=== PATIENT | female | born 2000 | race Caucasian/White ===

== ENCOUNTER 2018-12-27 22:47 | Emergency (ER) | payer SELFPAY ==
--- OUTSIDE RECORDS SUMMARY | 2018-12-27 22:51 | XMS REPORT | Continuity of Care Document ---
:2000 Author Organization Interface Problems Problem Status Onset Classification Date Comments Source Date Reported Active Problem 10/23/2018 [place] [address] [facility] INDUCTION Active [address] PYELONEPHRITIS, 12 Active [facility] WKS GESTATION [address] [place] [address] PYELONEPHRITIS Active [address] LABOR Active [address] Center Left 11/20/2017 [facility] nephrolithiasis [address] [place] [address] ABDOMINAL PAIN Active [address] Chlamydia Resolved Problem 10/23/2018 [facility] infection [facility] UTI in Resolved Problem 10/23/2018 [facility] in first 018 Medical trimester(<[facility] ID="[id number]"> Confirmed</span>) Refractory Active Problem 11/20/2017 Data migrated [facility] migraine without 016 from eClinical Medical aura<sup>1</sup> Works on Center 08/13/15. 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 Due to the frequency of her migraines, the patient would benefit from a prophylactic medication. Treatment with nortriptyline was recommended. The possible side effects of this medication were discussed with the patient and her mother. The patinet will also be prescribed a short course of oral steroids in an effort to break the current headache cycle. Originally documented as Common migraine with intractable migraine. Refractory Active Problem 10/23/2018 Data migrated [facility] migraine without 016 from eClinical Medical aura<sup>2</sup> Works on Center 08/13/15. 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 Due to the frequency of her migraines, the patient would benefit from a prophylactic medication. Treatment with nortriptyline was recommended. The possible side effects of this medication were discussed with the patient and her mother. The patinet will also be prescribed a short course of oral steroids in an effort to break the current headache cycle. Originally documented as Common migraine with intractable migraine. Blood transfusion Resolved Problem 10/23/2018 [facility] without reported 998 Medical diagnosis<sup>1</s Center up> Asthma Resolved Problem 11/20/2017 [facility] Headache Resolved Problem 11/20/2017 [facility] ACUTE Active [facility] PYELONEPHRITIS [facility] Medications Medication Details Route Status Patient Ordering Order Source Instructions Provider Date Docusate Sodium 100 mg=1 cap, Active [place] 100 MG Oral PO, BID, PRN 2019 Medical Capsule Constipation, # Center 60 cap, 0 Refill(s), Pharm[facility]: [email or web address] [id number] ibuprofen 600 mg 600 mg=1 tab, Active [facility] oral tablet PO, Q6H, PRN 2018 Medical Other -See Center Comment, # 60 tab, 0 Refill(s), [facility]: [email or web address] [id number] 1 tab, Route: Inactive [facility] Multivitamins oral PO, Drug Form: 2019 Medical tablet TAB, Dosing Center Weight 100.455, kg, Daily, Start date: 10/21/18 9:00:00 CDT, Duration: 30 day, Stop date: 11/19/18 9:00:00 CDT M-M-R II 0.5 mL, Route: No Longer [facility] SUB-Q, Drug Active 2018 Medical Form: PDR/INJ, Center Dosing Weight 100.455, kg, ONCALL, Give only if patient rubella non-immune, Start date: 10/20/18 16:00:00 CDT, Duration: 1 doses or timesNotes: (Same as: M-M-R II) (nhktlic-mzwim-k ubella virus vaccine 0.5 ml INJ VL) WASTE: F/P - Red; E -Red GIVE PRIOR TO DISCHARGE Ibuprofen 600 mg, 1 tab, No Longer 10/20[facility] Route: PO, Drug Active 2018 Medical form: TAB, Center Q6Hnow, Dosing Weight 100.455, kg, Start date: 10/20/18 16:00:00 CDT, Duration: 30 day, Stop date: 11/19/18 10:00:00 CDTNotes: (Same as: Motrin) "Do Not Crush" Take with food. Bisacodyl 15 mg, 3 tab, No Longer [place] Route: PO, Drug Active 2018 Medical form: ECTAB, Center Daily, Dosing Weight 100.455, kg, PRN Other -See Comment, Start date: 10/20/18 15:35:00 CDT, Duration: 30 day, Stop date: 11/19/18 15:34:00 CDTNotes: (Same As: Dulcolax, Correctol) (Do Not Crush) "Do Not Crush" Docusate 100 mg, 1 cap, No Longer [place] Route: PO, Drug Active 2018 Medical form: CAP, BID, Center Dosing Weight 100.455, kg, PRN Constipation, Start date: 10/20/18 15:35:00 CDT, Duration: 30 day, Stop date: 11/19/18 15:34:00 CDTNotes: (Same as: Colace) (Do Not Crush) zolpidem 5 mg, 1 tab, No Longer [place] Route: PO, Drug Active 2018 Medical form: TAB, Center Bedtime, Dosing Weight 100.455, kg, PRN Sleep, Start date: 10/20/18 15:35:00 CDT, Duration: 30 day, Stop date: 11/19/18 15:34:00 CDTNotes: (Same As: Ambien) Methylergonovine 0.2 mg, 1 mL, No Longer [place] Route: IM, Drug Active 2018 Medical form: INJ, PRN, Center Dosing Weight 100.455, kg, PRN Other -See Comment, Start date: 10/20/18 15:35:00 CDT, Duration: 30 day, Stop date: 11/19/18 15:34:00 CDTNotes: (Same as:Methergine) lanolin topical 1 appl, Route: No Longer [place] TOP, PRN, Drug Active 2018 Medical form: OINT, PRN Center Other -See Comment, Start date: 10/20/18 15:35:00 CDT, Duration: 30 day, Stop date: 11/19/18 15:34:00 CDT Benzocaine 200 1 spray, Route: No Longer [place] MG/ML Topical TOP, PRN, Drug Active 2019 Medical [place] [Dermoplast] form: SPRY, PRN Center Irritation, Start date: 10/20/18 15:35:00 CDT, Duration: 30 day, Stop date: 11/19/18 15:34:00 CDTNotes: (Same As: Dermoplast) WASTE: Aerosol - Return to Pharmacy FOR EXTERNAL USE ONLY Oxytocin 30 unit, 500 mL, No Longer [facility] Rate: 42 ml/hr, Active 2019 Medical Infuse over: Center 11.9 hr, Dosing Weight 100.455, kg, Route: IV, Total Volume: 500 mL, Start date: 10/20/18 15:35:00 CDT, Duration: 2 day, Stop date: 10/22/18 15:34:00 CDT, Replace Every: 11.9 hr Lactated Ringers 1,000 mL, Rate: No Longer [facility] IV 1,000 mL 100 ml/hr, Active 2019 Medical Infuse over: 10 Center hr, Route: IV, Dosing Weight 100.455 kg, Total Volume: 1,000, Start date: 10/20/18 15:35:00 CDT, Duration: 30 day, Stop date: 11/19/18 15:34:00 CDT, 2.21, m2 Ondansetron 4 mg, 2 mL, No Longer [facility] Route: IVP, Drug Active 2019 Medical form: INJ, Q8H, Center Dosing Weight 100.455, kg, PRN Nausea & Vomiting, Start date: 10/20/18 15:35:00 CDT, Duration: 30 day, Stop date: 11/19/18 15:34:00 CDTNotes: (Same as: Guillermina) MEDICATION WASTE Product Size: 4 mg Product Wasted: ___ mg Pitocin 10 unit, Route: Inactive [facility] IM, ONCE, Dosing 2019 Medical Weight 100.455, Center kg, Priority: STAT, Start date: 10/20/18 15:17:00 CDT, Stop date: 10/20/18 15:17:00 CDT Atropine Sulfate 2 tab, Route: No Longer [facility] 0.025 MG / PO, Drug Form: Active 2019 Medical Diphenoxylate TAB, Dosing Center Hydrochloride 2.5 Weight 100.455, MG Oral Tablet kg, QID, PRN [Lomotil] Loose Stools, STAT, Start date: 10/20/18 15:16:00 CDT, Duration: 30 day, Stop date: 11/19/18 15:15:00 CDTNotes: (Same As: Lomotil) MAX Adult dose=8 tabs/day Oxytocin 30 unit, 500 mL, No Longer [facility] Rate: Titrate, Active 2018 Medical Dosing Weight Center 100.455, kg, Route: IV, Total Volume: 500 mL, Start date: 10/20/18 6:30:00 CDT, Duration: 2 day, Stop date: 10/22/18 6:29:00 CDT, Replace Every: 24 hr Remove - 1 supp, Route: Inactive [facility] dinoprostone VAG, Drug Form: 2019 Medical (Cervidil) insert INS, Dosing Center Weight 100.455, kg, ONCALL, Start date: 10/20/18 6:00:00 CDT, Duration: 30 day, Stop date: 11/19/18 5:59:00 CDTNotes: Vaginal insert: to be removed 1 hour prior to oxytocin administration or 12 hours after insertion. Cervidil 10 mg, 1 supp, Inactive [facility] Route: VAG, Drug 2018 Medical form: SUPP, Center ONCE, Dosing Weight 100.455, kg, Start date: 10/19/18 21:00:00 CDT, Stop date: 10/19/18 21:00:00 CDTNotes: (Same as: Cervidil) Misoprostol 1,000 microgram, No Longer [facility] 5 tab, Route: Active 2019 Medical DC, Drug form: Center TAB, ONCALL, Dosing Weight 100.455, kg, Start date: 10/19/18 19:00:00 CDT, Duration: 1 doses or timesNotes: (Same as:Cytotec) Take with food Famotidine 20 mg, 2 mL, No Longer [facility] Route: IVP, Drug Active 2019 Medical form: INJ, Center ONCALL, Dosing Weight 100.455, kg, Start date: 10/19/18 19:00:00 CDT, Duration: 30 day, Stop date: 11/18/18 18:59:00 CDTNotes: (Same as: Pepcid) Can be dilute in 5-10cc NS IVP: Slow IV push over at least 2 minutes. Carboprost 250 microgram, 1 No Longer [place] mL, Route: IM, Active 2019 Medical Drug form: INJ, Center ONCALL, Dosing Weight 100.455, kg, Start date: 10/19/18 19:00:00 CDT, Duration: 30 day, Stop date: 11/18/18 18:59:00 CDTNotes: (Same As: Hemabate) Citric Acid / 30 mL, Route: No Longer [place] sodium citrate PO, Drug Form: Active 2019 Medical SOLN, Dosing Center Weight 100.455, kg, ONCALL, Start date: 10/19/18 19:00:00 CDT, Duration: 30 day, Stop date: 11/18/18 18:59:00 CDTNotes: (Same As: Bicitra, Cytra-2) Sodium citrate-citric acid (500-334 mg/5 mL): 1 mL contains sodium 1 mEq/mL and bicarbonate 1 mEq/mL Methylergonovine 0.2 mg, 1 mL, No Longer [place] Route: IM, Drug Active 2019 Medical form: INJ, Center ONCALL, Dosing Weight 100.455, kg, Start date: 10/19/18 19:00:00 CDT, Duration: 30 day, Stop date: 11/18/18 18:59:00 CDTNotes: (Same as:Methergine) Acetaminophen 325 2 tab, Route: No Longer [place] MG / Hydrocodone PO, Drug Form: Active 2019 Medical Bitartrate 5 MG TAB, Dosing Center Oral Tablet Weight 100.455, kg, Q4H, PRN Pain Score 7-10, Start date: 10/19/18 18:50:00 CDT, Duration: 30 day, Stop date: 11/18/18 18:49:00 CDTNotes: (Same as: [place] 325/5) Do not exceed 4gm/day of acetaminophen. Lidocaine 20 mL, Route: No Longer [place] Hydrochloride 10 PERCUT, Drug Active 2019 Medical MG/ML Injectable Form: INJ, Center Solution Dosing Weight 100.455, kg, PRN, PRN Other -See Comment, Start date: 10/19/18 18:50:00 CDT, Duration: 1 doses or times, Stop date: Limited # of timesNotes: Preservative free. (Same as: Xylocaine MPF) Ondansetron 4 mg, 2 mL, No Longer [place] Route: IVP, Drug Active 2018 Medical form: INJ, Q8H, Center Dosing Weight 100.455, kg, PRN Nausea & Vomiting, Start date: 10/19/18 18:50:00 CDT, Duration: 30 day, Stop date: 11/18/18 18:49:00 CDTNotes: (Same as: Guillermina) MEDICATION WASTE Product Size: 4 mg Product Wasted: ___ mg Terbutaline 0.25 mg, 0.25 No Longer [place] mL, Route: Active 2019 Medical SUB-Q, Drug Center form: INJ, PRN, Dosing Weight 100.455, kg, PRN Other -See Comment, Start date: 10/19/18 18:50:00 CDT, Duration: 1 doses or times, Stop date: Limited # of timesNotes: DO NOT USE IN ACID CUTTER AREA (Same As: Brethine) Butorphanol 1 mg, 0.5 mL, No Longer [place] Route: IVP, Drug Active 2018 Medical form: INJ, Q2H, Center Dosing Weight 100.455, kg, PRN Pain Score 4-6, Start date: 10/19/18 18:50:00 CDT, Duration: 30 day, Stop date: 11/18/18 18:49:00 CDTNotes: (Same As: Ashtyn) MEDICATION WASTE Product Size: 2 mg Product Wasted: __1_ mg Oxytocin 30 unit, 500 mL, No Longer [place] Rate: 42 ml/hr, Active 2018 Medical Infuse over: Center 11.9 hr, Dosing Weight 100.455, kg, Route: IV, Total Volume: 500 mL, Start date: 10/19/18 18:50:00 CDT, Duration: 2 day, Stop date: 10/21/18 18:49:00 CDT, Replace Every: 11.9 hr Calcium Chloride 1,000 mL, 1,000 No Longer [place] 0.0014 MEQ/ML / ml/hr, Infuse Active 2019 Medical Potassium Chloride Over: 1 hr, Center 0.004 MEQ/ML / Route: IV, Sodium Chloride 1,000, Drug 0.103 MEQ/ML / form: INJ, ONCE, Sodium Lactate Dosing Weight 0.028 MEQ/ML 100.455 kg, Injectable Start date: Solution 10/19/18 18:50:00 CDT, Stop date: 10/19/18 18:50:00 CDT, Bolus for regional anesthesia per unit routine Lactated Ringers 1,000 mL, Rate: No Longer [place] IV 1,000 mL 125 ml/hr, Active 2019 Medical Infuse over: 8 Center hr, Route: IV, Dosing Weight 100.455 kg, Total Volume: 1,000, Start date: 10/19/18 18:50:00 CDT, Duration: 30 day, Stop date: 11/18/18 18:49:00 CDT, 2.21, m2 Ibuprofen 600 mg, 1 tab, No Longer [place] Route: PO, Drug Active 2018 Medical form: TAB, Q6H, Center Dosing Weight 100.455, kg, PRN Other -See Comment, Start date: 10/19/18 18:50:00 CDT, Duration: 30 day, Stop date: 11/18/18 18:49:00 CDTNotes: (Same as: Motrin) "Do Not Crush" Take with food. Ondansetron 4 MG 4 mg=1 tab, PO, Active [facility] Disintegrating Q8H, PRN Nausea 2018 Medical Tablet [Zofran] and Vomiting, [place] Dissolve tab under tongue, # 9 tab, 0 Refill(s) Tamsulosin 0.4 mg=1 cap, Active [facility] hydrochloride 0.4 PO, Daily, # 5 2018 Medical MG Oral Capsule cap, 0 Refill(s) Center [Flomax] Ketorolac 15 mg, Route: Inactive [facility] IVP, Drug form: 2018 Medical INJ, ONCE, Center Dosing Weight 77.273, kg, Priority: STAT, Start date: 11/17/17 2:05:00 CDT, Stop date: 11/17/17 2:05:00 CDT Sodium Chloride 1,000 mL, 1000 Inactive [facility] 0.9% (Bolus) IV ml/hr, Infuse 2018 Medical Over: 1 hr, Center Route: IV, 1,000, Drug form: INJ, ONCE, Priority: STAT, Dosing Weight 77.273 kg, Start date: 11/17/17 1:25:00 CDT, Stop date: 11/17/17 1:25:00 CDT Phenergan 12.5 mg, 0.5 mL, Inactive [facility] Route: IVPB, 2018 Medical Drug form: INJ, Center ONCE, Dosing Weight 77.273, kg, Priority: STAT, Start date: 11/17/17 0:35:00 CDT, Stop date: 11/17/17 0:35:00 CDTNotes: Do not give IV push. (Same as: Phenergan) 30 ML Morphine 4 mg, 2 mL, No Longer [facility] Sulfate 5 MG/ML Route: IVP, Drug Active 2018 Medical Injection form: INJ, ONCE, Center Dosing Weight 77.273, kg, Start date: 11/16/17 23:36:00 CDT, Stop date: 11/16/17 23:36:00 CDTNotes: (Same as:MORPhine Sulfate) Ondansetron 4 mg, Route: Inactive [facility] IVP, Drug form: 2018 Medical INJ, ONCE, Center Dosing Weight 77.273, kg, Priority: STAT, Start date: 11/16/17 23:16:00 CDT, Stop date: 11/16/17 23:16:00 CDT Morphine 4 mg, Route: Inactive [facility] IVP, ONCE, 2018 Medical Dosing Weight Center 77.273, kg, Priority: STAT, Start date: 11/16/17 23:16:00 CDT, Stop date: 11/16/17 23:16:00 CDT Allergies, Adverse Reactions, Alerts Substance Category Reaction Severity Reaction Status Date Comments Source type Reported acetaminoph Assertion Hallucinat Drug Active Data [facility] en/butalbit ions/Chest allergy 6 migrated Medical al/caffeine Pain, from Center <sup>1</sup Hallucinat eClinical > ions/Chest [facility] 08/11/16. Originally documented as Fioricet. Reaction: Hallucinati ons/Chest Pain Immunizations Immunization Date Given Site Status Last Comments Source Updated diphtheria/pertus 10/21/2018 Left completed [facility] sis, acel/tetanus deltoid [facility] adult Center influenza virus 04/15/2018 Not Given [facility] vaccine, Medical inactivated<sup>1 Center </sup> Results Order Name Results Value Reference Date Interpretation Comments Source Range HEMATOLOGY Hct 28.7 % 36.0 - 10/21 [facility] 48.0 [facility] HEMATOLOGY Hgb 9.7 g/dL 12.0 - 10/21 [facility] 16.0 [facility] BLOOD BANK ABO/Rh O POS 10/20 [facility] BLOOD BANK Antibody Scrn Negative 10/20 [facility] (10/19/18 7:01 PM) [place] CHEM PANEL LDH 183 unit/L 98 - 192 10/20 [facility] CHEM PANEL Uric Acid 4.8 mg/dL 2.5 - 7.0 10/20 [facility] CHEM PANEL eGFR 125 10/20 Result Comment: The eGFR is calculated using the CKD-EPI formula. In most young, healthy individuals the eGFR will be >90 mL/ min/1.73m2. The eGFR declines with age. An eGFR of 60-89 may be normal in [facility] mL/min/1. some populations, particularly the elderly, for whom the CKD-EPI formula has not been extensively validated. Use of the eGFR is not recommended in the following populations: [address] Individuals with unstable creatinine concentrations, including patients and those with serious co-morbid conditions. Patients with extremes in muscle mass or diet. The data above are obtained from the National Kidney Disease Education Program (NKDEP) which additionally recommends that when the eGFR is used in patients with extremes of body mass index for purposes of drug dosing, the eGFR should be multiplied by the estimated BMI. CHEM PANEL Creatinine 0.70 mg/dL 0.50 - 10/20 [facility] Lvl 1.40 [facility] CHEM PANEL ALT 14 unit/L 0 - 65 10/20 [facility] CHEM PANEL AST 14 unit/L 0 - 37 10/20 [facility] HEMATOLOGY WBC 12.2 K/CMM 3.7 - 10.4 10/20 [facility] HEMATOLOGY RBC 3.81 M/CMM 4.20 - 10/20 [facility] 5.40 /2018 [facility] HEMATOLOGY Hgb 11.4 g/dL 12.0 - 10/20 [facility] 16.0 /2018 [facility] HEMATOLOGY Hct 34.2 % 36.0 - 10/20 [facility] 48.0 [facility] HEMATOLOGY MCV 89.9 fL 80.0 - 10/20 [facility] 98.0 /2018 [facility] HEMATOLOGY RDW 13.2 % 11.5 - 10/20 [facility] 14.5 [facility] HEMATOLOGY Platelet 285 K/CMM 133 - 450 10/20 [facility] HEMATOLOGY MPV 8.7 fL 7.4 - 10.4 10/20 [facility] HEMATOLOGY MCH 30.0 pg 27.0 - 10/20 [facility] 31.0 [facility] HEMATOLOGY MCHC 33.4 g/dL 32.0 - 10/20 [facility] 36.0 [facility] HEMATOLOGY Segs 78.7 % 45.0 - 10/20 [facility] 75.0 [facility] HEMATOLOGY Neutrophils # 9.6 K/CMM 1.5 - 8.1 10/20 [facility] HEMATOLOGY Lymphocytes 15.2 % 20.0 - 10/20 [facility] 40.0 [facility] HEMATOLOGY Monocytes 5.3 % 2.0 - 12.0 10/20 2018 [facility] HEMATOLOGY Eosinophils 0.4 % 0.0 - 4.0 10/20 [facility] HEMATOLOGY Basophils 0.4 % 0.0 - 1.0 10/20 [facility]2018 [facility] HEMATOLOGY Monocytes # 0.6 K/CMM 0.0 - 0.8 10/20 [facility] HEMATOLOGY Lymphocytes # 1.9 K/CMM 1.0 - 5.5 10/20 [facility] IMMUNOLOGY Treponemal Ab Non-Reactive Non 10/20 [facility]* [place] (10/19/18 7:01 PM) IMMUNOLOGY HIV. Negative Negative 10/20 [facility] (10/19/18 7:01 PM) IMMUNOLOGY Hep Bs Ag Negative Negative 10/20 [facility] (10/19/18 7:01 PM) Retroperito Retroperitone EXAM: US RENAL 04/20 - [facility] shayla al - Medical Complete US US This report was dictated by a Stage Hand/ Fellow. I have personally reviewed the images as Center well as the Resident's interpretation and agree with the findings. DATE: 04/20/2018 at 1005 hours Read by: Danna Ochoa MD Resident: Danna Ochoa MD Dictated Date/time: 04/20/18 10:41 Electronically Signed by: Jose Raul James MD 04/20/18 14:13 FINAL REPORT INDICATION: iup at 12wks 5days with h/o of kidney stones admitted with severe r flank pain ADDITIONAL INFORMATION: None. COMPARISON: None. TECHNIQUE: Multiplanar grayscale and color Doppler ultrasound of the kidneys and urinary bladder. FINDINGS: Right kidney: Size: 11.5 x 4.8 x 4.4 cm. Cortical thickness: Normal. Hydronephrosis: Mild hydronephrosis noted at the right renal pelvis, improved compared to prior ultrasound. Echogenicity: Normal. Calculi: None. Cysts/Masses: None. Left kidney: Size: 10.1 x 4.6 x 4.2 cm. Cortical thickness: Normal. Hydronephrosis: None. Echogenicity: Normal. Calculi: None. Cysts/Masses: None. Bladder: Right ureteral jet, otherwise normal. Free fluid: None. Other: None. IMPRESSION: 1. Mild and improved right hydronephrosis, likely secondary to gravid uterus. 2. Right ureteral jet. 3. No sonographic evidence of nephrolithiasis. Abdomen/Pel Abdomen/Pelvi EXAM: Abdomen/Pelvis wo contrast MRI 04/15 - [place] vis wo s wo contrast /2017 - [facility] contrast MRI MRI DATE: 04/15/2018 at 1247 hours. Read by: Eda Mathis MD Dictated Date/time: 04/15/18 14:31 Electronically Signed by: Eda Mathis MD 04/15/18 14:42 FINAL REPORT INDICATION: 18-year-old woman with right flank pain. There is a clinical concern for acute appendicitis. COMPARISON: Renal ultrasound on 04/14/2018. TECHNIQUE: Multiplanar, multisequence MR images of the abdomen and pelvis were obtained without intravenous contrast administration. IV Contrast: None. Protocol: Routine. FINDINGS: Lines and tubes: None. Lower thorax: Unremarkable. Liver and biliary tree: Normal. Gallbladder: Normal. No MR evidence of gallstones. Adrenals: Normal. Spleen: Normal. Pancreas: Normal. Kidneys and proximal ureters: Mild right hydronephrosis and asymmetric perinephric stranding/edema (image 14-15 of series 4). Bladder: No focal lesions. A right ureteral jet is partially imaged (image 8, series 6). Reproductive organs: A single intrauterine is noted. Gastrointestinal tract: Unremarkable with normal caliber. Appendix: Normal (image 22, series 3). Peritoneum and retroperitoneum: No free air or drainable fluid collections. A small amount of pelvic free fluid is nonspecific (image 16, series 6). Lymph nodes: No pathologic adenopathy. Vasculature: Unremarkable. Bones: No acute abnormality. Soft tissues: Unremarkable. IMPRESSION: 1. Mild RIGHT hydronephrosis is likely secondary to mass effect from the enlarged uterus and intrauterine . 2. Normal appendix. 3. Single intrauterine . Recommend continued follow-up with a dedicated pelvic US. 4. Small amount of nonspecific pelvic free fluid. Preg < Preg < 14wks EXAMINATION: FIRST TRIMESTER PELVIC SONOGRAM 04/14 - [place] 14wks sing sing gest w /2017 - [facility] gest w transvag/Dop transvag/Do US p US HISTORY: Pelvic pain in the setting of ; Read by: Gabino Blanton MD Dictated Date/time: 04/14/18 18:32 Electronically Signed by: Gabino Blanton MD 04/14/18 18:36 FINAL REPORT FINDINGS: There is a single viable intra-uterine with heart rate of 136 beats per minute (bpm). The mean sac diameter is 5.22 cm corresponding with 11 weeks 2 days. The crown-rump length is 5.4 cm corresponding with 12 weeks 1 days. There is no subchorionic hemorrhage. Sonographic gestational age is 11 weeks 5 days. The uterus has a length of 11.2 cm, AP dimension of 7.2 cm, and transverse dimension of 9.2 cm. The right ovary measures 2.9 x 1.6 x 3 cm and the left 3.1 x 2.3 x 2 cm. There are scattered small follicl es in each ovary. No abnormal masses or fluid collections are seen on either side. There is no free fluid within the cul-de-sac. IMPRESSION: 1. Single viable intra-uterine with heart rate of 136 bpm. Sonographic gestational age is 11 weeks 5 days. Retroperito Retroperitone CLINICAL HISTORY: - right flank pain 04/14 - [place] shayla al Complete - [facility] Complete US US AGE: 18 years GENDER: Female Read by: Júnior Stiles MD Dictated Date/time: 04/14/18 18:29 Electronically Signed by: Júnior Stiles MD 04/14/18 18:35 FINAL REPORT TECHNIQUE: Grayscale and limited doppler images of the kidneys were performed and account retention representative images were submitted for evaluation. COMPARISON: None available FINDINGS: Right kidney: The echogenicity is normal. The kidney measures 10.7 x 4.4 x 5.1 cm with a cortical thickness of 1.3 cm. Borderline right hydronephrosis. A punctate echogenic focus is noted in the inferio r pole of the right kidney which is favored represent prominent renal sinus fat. No twinkle artifact is seen on color Doppler flow at this site. No posterior acoustic tearing. Left Kidney: The echogenicity is normal. The kidney measures 11.4 x 4.9 x 5.3 cm with a cortical thickness of 1.3 cm. There is no hydronephrosis or large shadowing calculus. Bladder: Collapsed Vascular: Visualized portions of the IVC are patent. There is no obvious aneurysmal dilatation of the aorta. The origins of the common iliac arteries are not seen sonographically. IMPRESSION: Borderline right hydronephrosis. URINE AND UA Sq Epi Few /LPF Few /LPF 11/17 [facility] [address] [place] [address] URINE AND UA Amorph Occasional None Seen 11/17 [facility] Ifrah /HPF /HPF /[address] [place] [address] URINE AND UA Bacteria Few /HPF None Seen 11/17 [facility] /HPF /[address] [place] [address] URINE AND UA RBC 11-20 /HPF 0 - 2 11/[address] URINE AND UA WBC 0-2 /HPF None Seen 11/17 [facility] /HPF /[address] [place] [address] URINE AND UA Blood Moderate Negative 11/17 [facility] [address] [place] [address] *ABN* [place] (11/17/17 3:24 AM) URINE AND UA Nitrite Negative Negative 11/17 [facility] [address] [place] [address] (11/17/17 3:24 AM) [place] URINE AND UA Leuk Est Trace Negative 11/[address] *ABN* [place] (11/17/17 3:24 AM) URINE AND UA 0.2 EU/dL 0.1 - 1.0 11/17 [facility] Urobilinogen /2017 [facility] URINE AND UA Bili Negative Negative 11/17 [facility] *NA* [place] (11/17/17 3:24 AM) URINE AND UA Protein Negative Negative 11/17 [facility] STOOL [facility] (11/17/17 3:24 AM) [place] URINE AND UA Ketones Trace Negative 11/17 [facility] *ABN* [place] (11/17/17 3:24 AM) URINE AND UA Glucose Negative Negative 11/17 [facility] STOOL [facility] (11/17/17 3:24 AM) [place] URINE AND UA pH 8.0 5.0 - 8.0 11/17 [facility] /2017 [facility] URINE AND UA Turbidity Slight Cloudy Clear 11/17 [facility] (11/17/17 3:24 AM) [place] URINE AND UA Color Yellow Yellow 11/17 [facility] *NA* [place] (11/17/17 3:24 AM) URINE AND UA Spec Grav 1.010 <=1.030 11/17 [facility] BLOOD BANK Antibody Scrn Negative 11/17 [facility] RESULTS [facility] (11/16/17 11:59 PM) [place] BLOOD BANK ABO/Rh O POS 11/17 [facility] RESULTS [facility] ELECTROLYTE AGAP 13.7 meq/L 10.0 - 11/17 [facility] S 20.0 [facility] ELECTROLYTE eGFR 77 11/17 Result Comment: The eGFR is calculated using the CKD-EPI formula. In most young, healthy individuals the eGFR will be >90 mL/ min/1.73m2. The eGFR declines with age. An eGFR of 60-89 may be normal in [facility] mL/min/1.7 /2017 some populations, particularly the elderly, for whom the CKD-EPI formula has not been extensively validated. Use of the eGFR is not recommended in the following populations: [place] [address] [facility] Individuals with unstable creatinine concentrations, including patients and those with serious co-morbid conditions. Patients with extremes in muscle mass or diet. The data above are obtained from the National Kidney Disease Education Program (NKDEP) which additionally recommends that when the eGFR is used in patients with extremes of body mass index for purposes of drug dosing, the eGFR should be multiplied by the estimated BMI. ELECTROLYTE CO2 28 meq/L 24 - 32 11/17 [facility] ELECTROLYTE Calcium Lvl 10.3 mg/dL 8.5 - 10.5 11/17 [facility]2017 [facility] ELECTROLYTE Glucose Lvl 101 mg/dL 70 - 99 11/[address] ELECTROLYTE Chloride Lvl 103 meq/L 95 - 109 11/[address] ELECTROLYTE Sodium Lvl 141 meq/L 135 - 145 11/[address] ELECTROLYTE BUN 11 mg/dL 7 - 11/[address] ELECTROLYTE Creatinine 1.05 mg/dL 0.50 - 11/17 [facility] Lvl 1.40 [facility] ELECTROLYTE Potassium Lvl 3.7 meq/L 3.5 - 5.1 11/17 [facility]2017 [facility] ENDOCRINOLO hCG Tot null 11/17 [facility] HEMATOLOGY Platelet 281 K/CMM 133 - 450 11/17 [facility]2017 [facility] HEMATOLOGY MPV 8.7 fL 7.4 - 10.4 11/17 [facility]2017 [facility] HEMATOLOGY WBC 9.7 K/CMM 3.7 - 10.4 11/17 2017 [facility] HEMATOLOGY RBC 4.51 M/CMM 4.20 - 11/17 5.40 [facility] HEMATOLOGY Hgb 14.5 g/dL 12.0 - 11/17 [facility] 16.0 [facility] HEMATOLOGY Hct 42.6 % 36.0 - 11/17 48.0 [facility] HEMATOLOGY MCV 94.4 fL 80.0 - 11/17 98.0 [facility] HEMATOLOGY RDW 12.8 % 11.5 - 11/17 14.5 [facility] HEMATOLOGY MCHC 34.0 g/dL 32.0 - 11/17 [facility] 36.0 [facility] HEMATOLOGY MCH 32.1 pg 27.0 - 11/17 31.0 [facility] HEMATOLOGY Monocytes # 0.6 K/CMM 0.0 - 0.8 11/[address] HEMATOLOGY Basophils # 0.1 K/CMM 0.0 - 0.2 11/[address] HEMATOLOGY Eosinophils 0.4 % 0.0 - 4.0 11/[address] HEMATOLOGY Basophils 0.6 % 0.0 - 1.0 11/17 [facility] HEMATOLOGY Segs-Bands # 6.8 K/CMM 1.5 - 8.1 11/17 [facility] HEMATOLOGY Lymphocytes 23.3 % 20.0 - 11/17 [facility] 40.0 [facility] HEMATOLOGY Monocytes 6.3 % 2.0 - 12.0 11/17 [facility]2017 [facility] HEMATOLOGY Lymphocytes # 2.3 K/CMM 1.0 - 5.5 11/17 [facility] HEMATOLOGY Segs 69.4 % 45.0 - 11/17 [facility] 75.0 [facility] Pelvis w Pelvis w EXAM: US PELVIS TRANSABDOMINAL 11/17 - [facility] Transvag Transvag - Medical and Pelvis Pelvis EXAM: US PELVIS TRANSVAGINAL WITH DOPPLER This report was dictated by a Stage Hand/Fellow. I have personally reviewed the images as Center Doppler US Doppler US well as the Resident's interpretation and agree with the findings. Read by: Go Roberts MD Resident: Go Roberts MD Dictated Date/time: 11/17/17 01:14 DATE: 11/16/2017 11:23 PM CDT Electronically Signed by: Syd Pineda MD 11/17/17 07:16 FINAL REPORT INDICATION: - LLQ abdominal pain, r/o ectopic vs. ovarian torsion ADDITIONAL INFORMATION: Beta hCG is negative COMPARISON: CT abdomen pelvis 12/26/2014 TECHNIQUE: Multiplanar grayscale, color Doppler and spectral Doppler ultrasound of the pelvis were obtained: Transabdominally through a distended urinary bladder. Transvaginally postvoid. FINDINGS: Uterus/Myometrium: Size: 6.3 x 2.8 x 4 cm Echogenicity: Normal. Masses: None. Cervix: Normal. Endometrium: Thickness: 3 mm Cysts/Masses: None. Right ovary: Size: 3.6 x 2.2 x 2.3 cm Cysts/Masses: None. Left ovary: Size: 3.5 x 2.1 x 1.9 cm Cysts/Masses: None. Adnexa: Normal. Pelvic vasculature: Normal. No Doppler abnormalities. Free fluid: None. Other: Dilated left ureter with 4 mm nonobstructive calculus at the left ureterovesical junction. IMPRESSION: 1. Dilated left ureter with 4 mm nonobstructive calculus at the left ureterovesical junction. CT abdomen pelvis noncontrast may be beneficial for complete evaluation. 2. Otherwise normal pelvic ultrasound. 3. No Doppler/flow abnormalities. Findings discussed with Dr. Daniels at 0121 hours on 11/17/2017. [place] SECTION: Body Vital Signs Vital Sign Value Date Comments Source Respitory Rate 18 10/21/2018 [facility] Systolic (mm Hg) 104 10/21/2018 [facility] Diastolic (mm Hg) 71 10/21/2018 [facility] Heart Rate 90 10/21/2018 [facility] Temperature Oral (F) 97.6 F 10/21/2018 [facility] Heart Rate 100 10/21/2018 [facility] Systolic (mm Hg) 123 10/21/2018 [facility] Diastolic (mm Hg) 82 10/21/2018 [facility] Respitory Rate 18 10/21/2018 [facility] Temperature Oral (F) 98.5 F 10/21/2018 [facility] Respitory Rate 18 10/20/2018 [facility] Heart Rate 105 10/20/2018 [facility] Systolic (mm Hg) 125 10/20/2018 [facility] Diastolic (mm Hg) 70 10/20/2018 [facility] Temperature Oral (F) 98.5 F 10/20/2018 [facility] Height 170.18 cm 10/19/2018 [facility] BMI Calculated 34.69 10/19/2018 [facility] Weight 100.455 10/19/2018 [facility] Systolic (mm Hg) 110 11/17/2017 [facility] Diastolic (mm Hg) 81 11/17/2017 [facility] Respitory Rate 18 11/17/2017 [facility] Heart Rate 80 11/17/2017 [facility] Temperature Oral (F) 98.4 F 11/17/2017 [facility] Systolic (mm Hg) 97 11/17/2017 [facility] Diastolic (mm Hg) 66 11/17/2017 [facility] Respitory Rate 18 11/17/2017 [facility] Heart Rate 93 11/17/2017 [facility] Temperature Oral (F) 98.8 F 11/17/2017 [facility] BMI Calculated 26.68 11/17/2017 [facility] Weight 77.273 11/17/2017 [facility] Temperature Oral (F) 98.4 F 11/17/2017 [facility] Height 170.18 cm 11/17/2017 [facility] Respitory Rate 18 11/17/2017 [facility] Heart Rate 92 11/17/2017 [facility] Systolic (mm Hg) 134 11/17/2017 [facility] Diastolic (mm Hg) 89 11/17/2017 [facility] Encounters Location Location Encounter Encounter Reason Attending ADM DC Status Source Details Type Number For Provider Date Date Visit Outpatient [id number] BHARGAV 01/03 Active [facility] Julio Cesar Gallardo Emergency [id number] Kaden 11/17 11/17 [facility] Julio Cesar Daniels /2017 [facility] Inpatient [id number] Nisha Bedoya 10/19 10/22 [facility] /2018 [facility] Procedures Procedure Code Date Perfomer Comments Source
--- OUTSIDE RECORDS SUMMARY | 2018-12-27 22:52 | XMS REPORT | Summary of Care ---
:2000 Author Organization [facility] Address [address], [place] [address]- Encounter HQ Aria_chris(ROBERTO) [id number] Date(s): 10/19/18 - 10/21/[address] Professional Services provided by [facility] [place] [address]- Discharge Disposition: Home or Self Care Attending Physician: Nisha Bedoya MD Admitting Physician: Nisah Bedoya MD Referring Physician: Dedra Little MD Vital Signs Most recent to oldest 1 2 3 [Reference Range]: Height 170.18 cm (10/19/18 6:47 PM) Temperature Oral [96.4-99.1 97.6 DegF 98.5 DegF 98.5 DegF DegF] (10/21/18 8:54 AM) (10/21/18 12:00 AM) (10/20/18 6:03 PM) Blood Pressure [90-140/60-90 104/71 mmHg 123/82 mmHg 125/70 mmHg mmHg] (10/21/18 8:54 AM) (10/21/18 12:00 AM) (10/20/18 6:03 PM) Respiratory Rate [14-20 BRMIN] 18 BRMIN 18 BRMIN 18 BRMIN (10/21/18 8:54 AM) (10/21/18 12:00 AM) (10/20/18 6:03 PM) Peripheral Pulse Rate [60-100 90 bpm 100 bpm 105 bpm bpm] (10/21/18 8:54 AM) (10/21/18 12:00 AM) *HI* (10/20/18 6:03 PM) Weight 100.455 kg (10/19/18 6:47 PM) Body Mass Index 34.69 m2 (10/19/18 6:47 PM) Problem List Condition Effective Dates Status Health Status Informant Chlamydia infection affecting 2018 Resolved (Confirmed) Blood transfusion without reported 1998 Resolved diagnosis(Confirmed)1 (Confirmed) 10/19/18 Active Refractory migraine without 01/04/16 Active aura(Confirmed)2 UTI (urinary tract infection) in 2018 Resolved in first trimester(Confirmed) [id number] migrated from [facility] on 08/13/15. 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 [...] documented as Common migraine with intractable migraine. Allergies, Adverse Reactions, Alerts Substance Reaction Severity Status NKDA Active Medications acetaminophen-hydrocodone 325 mg-5 mg oral tablet 2 tab, Route: PO, Drug Form: TAB, Dosing Weight 100.455, kg, Q4H, PRN Pain Score 7-10, Start date: 10/19/18 18:50:00 CDT, Duration: 30 day, Stop date: 18:49:00 CDT Notes: (Same as: Glorieta 325/5) Do not exceed 4gm/day of acetaminophen. Start Date: 10/19/18 Stop Date: 10/21/18 Status: Discontinuedacetaminophen-hydrocodone 325 mg-5 mg oral tablet 1 tab, Route: PO, Drug Form: TAB, Dosing Weight 100.455, kg, Q4H, PRN Pain Score 4-6, Start date: 10/19/18 18:50:00 CDT, Duration: 30 day, Stop date: 11/18 18:49:00 CDT Notes: (Same as: Glorieta 325/5) Do not exceed 4gm/day of acetaminophen. Start Date: 10/19/18 Stop Date: 10/21/18 Status: Discontinuedbisacodyl 15 mg, 3 tab, Route: PO, Drug form: ECTAB, Daily, Dosing Weight 100.455, kg, PRN Other -See Comment,Start date: 10/20/18 15:35:00 CDT, Duration: 30 day, Stop date: 11/19/18 15:34:00 CDT Notes: (Same As: Dulcolax, Correctol) (Do Not Crush) "Do Not Crush" Start Date: 10/20/18 Stop Date: 10/21/18 Status: Discontinuedbisacodyl 10 mg, 1 supp, Route: NJ, Drug form: SUPP, PRN, Dosing Weight 100.455, kg, PRN Other -See Comment, Start date: 10/20/18 15:35:00 CDT, Duration: 30 day, Stop date: 11/19/18 15:34:00 CDT Notes: (Same As: Dulcolax, Bisco-Lax) Start Date: 10/20/18 Stop Date: 10/21/18 Status: Discontinuedbutorphanol 1 mg, 0.5 mL, Route: IVP, Drug form: INJ, Q2H, Dosing Weight 100.455, kg, PRN Pain Score 4-6, Start date: 10/19/18 18:50:00 CDT, Duration: 30 day, Stop date: 11/18/18 18:49:00 CDT Notes: (Same As: Stadol) MEDICATION WASTE Product Size: 2 mgProduct Wasted: __1_ mg Start Date: 10/19/18 Stop Date: 10/21/18 Status: Discontinuedbutorphanol 2 mg, 1 mL, Route: IVP, Drug form: INJ, Q2H, Dosing Weight 100.455, kg, PRN Pain Score 7-10, Start date: 10/19/18 18:50:00 CDT, Duration: 30 day, Stop date : 11/18/18 18:49:00 CDT Notes: (Same As: Stadol) MEDICATION WASTE Product Size: 2 mgProduct Wasted: ___ mg Start Date: 10/19/18 Stop Date: 10/21/18 Status: Discontinuedcarboprost 250 microgram, 1 mL, Route: IM, Drug form: INJ, ONCALL, Dosing Weight 100.455, kg, Start date: 10/19/18 19:00:00 CDT, Duration: 30 day, Stop date: 11/18/18 18: 59:00 CDT Notes: (Same As: Hemabate) Start Date: 10/19/18 Stop Date: 10/20/18 Status: CompletedCervidil 10 mg, 1 supp, Route: VAG, Drug form: SUPP, ONCE, Dosing Weight 100.455, kg, Start date: 10/19/18 21:00:00 CDT, Stop date: 10/19/18 21:00:00 CDT Notes: (Same as: Cervidil) Start Date: 10/19/18 Stop Date: 10/19/18 Status: Completedcitric acid-sodium citrate 30 mL, Route: PO, Drug Form: SOLN, Dosing Weight 100.455, kg, ONCALL, Start date : 10/19/18 19:00:00 CDT, Duration: 30 day, Stop date: 11/18/18 18:59:00 CDT Notes: (Same As: Bicitra, Cytra-2) Sodium citrate-citric acid (500-334 mg/5 mL) : 1 mL contains sodium 1 mEq/mL and bicarbonate 1 mEq/mL Start Date: 10/19/18 Stop Date: 10/21/18 Status: DiscontinuedDermoplast 20% topical spray 1 spray, Route: TOP, PRN, Drug form: SPRY, PRN Irritation, Start date: 10/20/18 15:35:00 CDT, Duration: 30 day, Stop date: 11/19/18 15:34:00 CDT Notes: (Same As: Dermoplast)WASTE: Aerosol - Return to Pharmacy FOR EXTERNAL USE ONLY Start Date: 10/20/18 Stop Date: 10/21/18 Status: Discontinueddocusate 100 mg, 1 cap, Route: PO, Drug form: CAP, BID, Dosing Weight 100.455, kg, PRN Constipation, Start date: 10/20/18 15:35:00 CDT, Duration: 30 day, Stop date: 15:34:00 CDT Notes: (Same as: Colace) (Do Not Crush) Start Date: 10/20/18 Stop Date: 10/21/18 Status: Discontinueddocusate sodium 100 mg oral capsule 100 mg=1 cap, PO, BID, PRN Constipation, # 60 cap, 0 Refill(s), Pharmacy: [facility] [id number] Start Date: 10/21/18 Status: Orderedfamotidine 20 mg, 2 mL, Route: IVP, Drug form: INJ, ONCALL, Dosing Weight 100.455, kg, Start date: 10/19/18 19:00:00 CDT, Duration: 30 day, Stop date: 11/18/18 18:59: 00 CDT Notes: (Same as: Pepcid)Can be dilute in 5-10cc NS IVP: Slow IV push over at least 2 minutes. Start Date: 10/19/18 Stop Date: 10/21/18 Status: Discontinuedibuprofen 600 mg, 1 tab, Route: PO, Drug form: TAB, Q6Hnow, Dosing Weight 100.455, kg, Start date: 10/20/18 16:00:00 CDT, Duration: 30 day, Stop date: 11/19/18 10:00: 00 CDT Notes: (Same as: Motrin)"Do Not Crush" Take with food. Start Date: 10/20/18 Stop Date: 10/21/18 Status: Discontinuedibuprofen 600 mg, 1 tab, Route: PO, Drug form: TAB, Q6H, Dosing Weight 100.455, kg, PRN Other -See Comment, Start date: 10/19/18 18:50:00 CDT, Duration: 30 day, Stop date: 11/18/18 18:49:00 CDT Notes: (Same as: Motrin)"Do Not Crush" Take with food. Start Date: 10/19/18 Stop Date: 10/21/18 Status: Discontinuedibuprofen 600 mg oral tablet 600 mg=1 tab, PO, Q6H, PRN Other -See Comment, # 60 tab, 0 Refill(s), Pharmacy: [id number] Start Date: 10/21/18 Stop Date: 10/28/18 Status: OrderedLactated Ringers (Bolus) IV 1,000 mL, 1,000 ml/hr, Infuse Over: 1 hr, Route: IV, 1,000, Drug form: INJ, ONCE , Dosing Weight 100.455 kg, Start date: 10/19/18 18:50:00 CDT, Stop date: 18:50:00 CDT, Bolus for regional anesthesia per unit routine Start Date: 10/19/18 Stop Date: 10/20/18 Status: CompletedLactated Ringers IV 1,000 mL 1,000 mL, Rate: 100 ml/hr, Infuse over: 10 hr, Route: IV, Dosing Weight 100.455 kg, Total Volume: 1,000, Start date: 10/20/18 15:35:00 CDT, Duration: 30 day, Stop date: 11/19/18 15:34:00 CDT, 2.21, m2 Start Date: 10/20/18 Stop Date: 10/21/18 Status: DiscontinuedLactated Ringers IV 1,000 mL 1,000 mL, Rate: 125 ml/hr, Infuse over: 8 hr, Route: IV, Dosing Weight 100.455 kg, Total Volume: 1,000, Start date: 10/19/18 18:50:00 CDT, Duration: 30 day, Stop date: 11/18/18 18:49:00 CDT, 2.21, m2 Start Date: 10/19/18 Stop Date: 10/21/18 Status: Discontinuedlanolin topical 1 appl, Route: TOP, PRN, Drug form: OINT, PRN Other -See Comment, Start date: 15:35:00 CDT,Duration: 30 day, Stop date: 11/19/18 15:34:00 CDT Start Date: 10/20/18 Stop Date: 10/21/18 Status: Discontinuedlidocaine 1% 20 mL, Route: PERCUT, Drug Form: INJ, Dosing Weight 100.455, kg, PRN, PRN Other -See Comment, Start date: 10/19/18 18:50:00 CDT, Duration: 1 doses or times, Stop date: Limited # of times Notes: Preservative free. (Same as: Xylocaine MPF) Start Date: 10/19/18 Stop Date: 10/21/18 Status: Discontinuedlidocaine 1% injectable solution 0.25 mL, Route: INTRADERM, Drug Form: INJ, Dosing Weight 100.455, kg, PRN, PRN Other -See Comment, Start date: 10/19/18 18:50:00 CDT, Duration: 30 day, Stop date: 11/18/18 18:49:00 CDT Notes: Preservative free. (Same as: Xylocaine MPF) Start Date: 10/19/18 Stop Date: 10/21/18 Status: DiscontinuedLomotil oral tablet 2 tab, Route: PO, Drug Form: TAB, Dosing Weight 100.455, kg, QID, PRN Loose Stools, STAT, Start date: 10/20/18 15:16:00 CDT, Duration: 30 day, Stop date: 15:15:00 CDT Notes: (Same As: Lomotil) MAX Adult dose=8 tabs/day Start Date: 10/20/18 Stop Date: 10/21/18 Status: YlarljqihqjeL-J-V II 0.5 mL, Route: SUB-Q, Drug Form: PDR/INJ, Dosing Weight 100.455, kg, ONCALL, Give only if patient rubella non-immune, Start date: 10/20/18 16:00:00 CDT, Duration: 1 doses or times Notes: (Same as: M-M-R II) (lbzltun-qbehz-splyabv virus vaccine 0.5 ml INJ VL) WASTE: F/P - Red; E -Red GIVE PRIOR TO DISCHARGE Start Date: 10/20/18 Stop Date: 10/21/18 Status: Discontinuedmethylergonovine 0.2 mg, 1 mL, Route: IM, Drug form: INJ, PRN, Dosing Weight 100.455, kg, PRN Other -See Comment, Start date: 10/20/18 15:35:00 CDT, Duration: 30 day, Stop date: 11/19/18 15:34:00 CDT Notes: (Same as:Methergine) Start Date: 10/20/18 Stop Date: 10/21/18 Status: Discontinuedmethylergonovine 0.2 mg, 1 mL, Route: IM, Drug form: INJ, ONCALL, Dosing Weight 100.455, kg, Start date: 10/19/18 19:00:00 CDT, Duration: 30 day, Stop date: 11/18/18 18:59: 00 CDT Notes: (Same as:Methergine) Start Date: 10/19/18 Stop Date: 10/21/18 Status: Discontinuedmisoprostol 1,000 microgram, 5 tab, Route: NJ, Drug form: TAB, ONCALL, Dosing Weight 100.455 , kg, Start date: 10/19/18 19:00:00 CDT, Duration: 1 doses or times Notes: (Same as:Cytotec) Take with food Start Date: 10/19/18 Stop Date: 10/20/18 Status: Completedondansetron 4 mg, 2 mL, Route: IVP, Drug form: INJ, Q8H, Dosing Weight 100.455, kg, PRN Nausea & Vomiting, Start date: 10/20/18 15:35:00 CDT, Duration: 30 day, Stop date: 11/19/18 15:34:00 CDT Notes: (Same as: Zofran) MEDICATION WASTE Product Size: 4 mgProduct Wasted: ___ mg Start Date: 10/20/18 Stop Date: 10/21/18 Status: Discontinuedondansetron 4 mg, 2 mL, Route: IVP, Drug form: INJ, Q8H, Dosing Weight 100.455, kg, PRN Nausea & Vomiting, Start date: 10/19/18 18:50:00 CDT, Duration: 30 day, Stop date: 11/18/18 18:49:00 CDT Notes: (Same as: Zofran) MEDICATION WASTE Product Size: 4 mgProduct Wasted: ___ mg Start Date: 10/19/18 Stop Date: 10/20/18 Status: Discontinuedoxytocin 30 units in NS 500ml (Titrate) IV 30 unit 30 unit, 500 mL, Rate: 42 ml/hr, Infuse over: 11.9 hr, Dosing Weight 100.455, kg , Route: IV, Total Volume: 500 mL, Start date: 10/20/18 15:35:00 CDT, Duration: 2 day, Stop date: 10/22/18 15:34:00 CDT, Replace Every: 11.9 hr Start Date: 10/20/18 Stop Date: 10/21/18 Status: Discontinuedoxytocin 30 units in NS 500ml (Titrate) IV 30 unit 30 unit, 500 mL, Rate: 42 ml/hr, Infuse over: 11.9 hr, Dosing Weight 100.455, kg , Route: IV, Total Volume: 500 mL, Start date: 10/19/18 18:50:00 CDT, Duration: 2 day, Stop date: 10/21/18 18:49:00 CDT, Replace Every: 11.9 hr Start Date: 10/19/18 Stop Date: 10/21/18 Status: Completedoxytocin 30 units in NS 500ml (Titrate) IV 30 unit 30 unit, 500 mL, Rate: Titrate, Dosing Weight 100.455, kg, Route: IV, Total Volume: 500 mL, Start date: 10/20/18 6:30:00 CDT, Duration: 2 day, Stop date: 6:29:00 CDT, Replace Every: 24 hr Start Date: 10/20/18 Stop Date: 10/21/18 Status: DiscontinuedPitocin 10 unit, Route: IM, ONCE, Dosing Weight 100.455, kg, Priority: STAT, Start date : 10/20/18 15:17:00 CDT, Stop date: 10/20/18 15:17:00 CDT Start Date: 10/20/18 Stop Date: 10/20/18 Status: CompletedPrenatal Multivitamins oral tablet 1 tab, Route: PO, Drug Form: TAB, Dosing Weight 100.455, kg, Daily, Start date: 10/21/18 9:00:00 CDT, Duration: 30 day, Stop date: 11/19/18 9:00:00 CDT Start Date: 10/21/18 Stop Date: 10/21/18 Status: DiscontinuedRemove - dinoprostone (Cervidil) insert 1 supp, Route: VAG, Drug Form: INS, Dosing Weight 100.455, kg, ONCALL, Start date: 10/20/18 6:00:00 CDT, Duration: 30 day, Stop date: 11/19/18 5:59:00 CDT Notes: Vaginal insert: to be removed 1 hour prior to oxytocin administration or 12 hours after insertion. Start Date: 10/20/18 Stop Date: 10/20/18 Status: Completedterbutaline 0.25 mg, 0.25 mL, Route: SUB-Q, Drug form: INJ, PRN, Dosing Weight 100.455, kg, PRN Other -See Comment, Start date: 10/19/18 18:50:00 CDT, Duration: 1 doses or times, Stop date: Limited # of times Notes: DO NOT USE IN LITIGATION ATTORNEY AREA(Same As: Brethine) Start Date: 10/19/18 Stop Date: 10/21/18 Status: Discontinuedzolpidem 5 mg, 1 tab, Route: PO, Drug form: TAB, Bedtime, Dosing Weight 100.455, kg, PRN Sleep, Start date: 10/20/18 15:35:00 CDT, Duration: 30 day, Stop date: 11/19/18 15:34:00 CDT Notes: (Same As: Collinien) Start Date: 10/20/18 Stop Date: 10/21/18 Status: Discontinued Results BLOOD BANK RESULTS Most recent to oldest [Reference Range]: 1 2 ABO/Rh O POS *Unknown* (10/19/18 7:01 PM) Antibody Scrn Negative (10/19/18 7:01 PM) CHEM PANEL Most recent to oldest [Reference Range]: 1 2 Creatinine Lvl [0.50-1.40 mg/dL] 0.70 mg/dL (10/19/18 7:01 PM) eGFR 125 mL/min/1.73m2 1 *NA* (10/19/18 7:01 PM) Uric Acid [2.5-7.0 mg/dL] 4.8 mg/dL (10/19/18 7:01 PM) ALT [0-65 unit/L] 14 unit/L (10/19/18 7:01 PM) AST [0-37 unit/L] 14 unit/L (10/19/18 7:01 PM) LDH [98-192 unit/L] 183 unit/L (10/19/18 7:01 PM) 1Result Comment: The eGFR is calculated using the CKD-EPI formula. In most young , healthy individualsthe eGFR will be >90 mL/min/1.73m2. The eGFR declines with age. An eGFR of 60-89 may be normal insome populations, particularly the elderly, for whom the CKD-EPI formula has not been extensively validated. Use of the eGFR is not recommended in the following populations: Individuals with unstable creatinine concentrations, including patients and those with serious co-morbid conditions. Patients with extremes in muscle mass or diet. The data above are obtained from the National Kidney Disease Education Program ( NKDEP) which additionally recommends that when the eGFR is used in patients with extremes of body mass index for purposesof drug dosing, the eGFR should be multiplied by the estimated BMI.IMMUNOLOGY Most recent to oldest [Reference Range]: 1 2 Treponemal Ab [Non-Reactive] Non-Reactive *NA* (10/19/18 7:01 PM) HIV. [Negative] Negative *NA* (10/19/18 7:01 PM) Hep Bs Ag [Negative] Negative *NA* (10/19/18 7:01 PM) HEMATOLOGY Most recent to oldest [Reference Range]: 1 2 WBC [3.7-10.4 K/CMM] 12.2 K/CMM *HI* (10/19/18 7:01 PM) RBC [4.20-5.40 M/CMM] 3.81 M/CMM *LOW* (10/19/18 7:01 PM) Hgb [12.0-16.0 g/dL] 9.7 g/dL 11.4 g/dL *LOW* *LOW* (10/21/18 6:36 AM) (10/19/18 7:01 PM) Hct [36.0-48.0 %] 28.7 % 34.2 % *LOW* *LOW* (10/21/18 6:36 AM) (10/19/18 7:01 PM) MCV [80.0-98.0 fL] 89.9 fL (10/19/18 7:01 PM) MCH [27.0-31.0 pg] 30.0 pg (10/19/18 7:01 PM) MCHC [32.0-36.0 g/dL] 33.4 g/dL (10/19/18 7:01 PM) RDW [11.5-14.5 %] 13.2 % (10/19/18 7:01 PM) MPV [7.4-10.4 fL] 8.7 fL (10/19/18 7:01 PM) Platelet [133-450 K/CMM] 285 K/CMM (10/19/18 7:01 PM) Segs [45.0-75.0 %] 78.7 % *HI* (10/19/18 7:01 PM) Lymphocytes [20.0-40.0 %] 15.2 % *LOW* (10/19/18 7:01 PM) Monocytes [2.0-12.0 %] 5.3 % (10/19/18 7:01 PM) Eosinophils [0.0-4.0 %] 0.4 % (10/19/18 7:01 PM) Basophils [0.0-1.0 %] 0.4 % (10/19/18 7:01 PM) Neutrophils # [1.5-8.1 K/CMM] 9.6 K/CMM *HI* (10/19/18 7:01 PM) Lymphocytes # [1.0-5.5 K/CMM] 1.9 K/CMM (10/19/18 7:01 PM) Monocytes # [0.0-0.8 K/CMM] 0.6 K/CMM (10/19/18 7:01 PM) Immunizations Given and Recorded Vaccine Date Status Refusal Reason diphtheria/pertussis, acel/tetanus adult 10/21/18 Given Not Given Vaccine Date Status Refusal Reason influenza virus vaccine, inactivated1 04/15/18 Not Given Patient Refuses 1Result Note: came in several times to ask about flu vax, she kept telling me to come in later due topain Procedures No data available for this section Social History Social History Type Response Substance Abuse Use: None.1 Alcohol Never Smoking Status Never smoker; Exposure to Tobacco Smoke None; Cigarette Smoking Last 365 Days No; Reg Smoking Cessation Counseling No entered on: 10/19/18 1Never any use of marijuana. Assessment and Plan No data available for this section
--- OUTSIDE RECORDS SUMMARY | 2018-12-27 22:52 | XMS REPORT | Summary of Care ---
:2000 Author Organization [facility] Address [address], [place] [address]- Encounter HQ Encntr_chris(FIN) [id number] Date(s): 11/16/17 - 11/17/[address] Professional Services provided by [facility] [place] [address]- Encounter Diagnosis Left nephrolithiasis (Discharge Diagnosis) - 11/17/17 Discharge Disposition: Home or Self Care Attending Physician: Kaden Daniels MD Vital Signs Most recent to oldest 1 2 3 [Reference Range]: Height 170.18 cm (11/16/17 11:01 PM) Temperature Oral [96.4-99.1 98.4 DegF 98.8 DegF 98.4 DegF DegF] (11/17/17 4:02 AM) (11/17/17 1:22 AM) (11/16/17 11:01 PM) Blood Pressure [90-140/60-90 110/81 mmHg 97/66 mmHg 134/89 mmHg mmHg] (11/17/17 4:02 AM) (11/17/17 1:22 AM) (11/16/17 11:01 PM) Respiratory Rate [14-20 18 BRMIN 18 BRMIN 18 BRMIN BRMIN] (11/17/17 4:02 AM) (11/17/17 1:22 AM) (11/16/17 11:01 PM) Peripheral Pulse Rate [60-100 80 bpm 93 bpm 92 bpm bpm] (11/17/17 4:02 AM) (11/17/17 1:22 AM) (11/16/17 11:01 PM) Weight 77.273 kg (11/16/17 11:01 PM) Body Mass Index 26.68 m2 (11/16/17 11:01 PM) Problem List Condition Effective Dates Status Health Status Informant Asthma(Confirmed) Resolved Headache(Confirmed) Resolved 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 Rahul has common migraine without [...] Alerts Substance Reaction Severity Status NKDA Active acetaminophen/butalbital/caffeine1 Hallucinations/Chest Pain Active Hallucinations/Chest Pain 1Data migrated from [employer] on 08/11/16. Originally documented as Fioricet. Reaction: Hallucinations/Chest Pain Medications Flomax 0.4 mg oral capsule 0.4 mg=1 cap, PO, Daily, # 5 cap, 0 Refill(s) Start Date: 11/17/17 Stop Date: 11/22/17 Status: OrderedketOROLAC 15 mg, Route: IVP, Drug form: INJ, ONCE, Dosing Weight 77.273, kg, Priority: STAT, Start date: 11/17/17 2:05:00 CDT, Stop date: 11/17/17 2:05:00 CDT Start Date: 11/17/17 Stop Date: 11/17/17 Status: Completedmorphine 5 mg/mL preservative-free injectable solution 4 mg, 2 mL, Route: IVP, Drug form: INJ, ONCE, Dosing Weight 77.273, kg, Start date: 11/16/17 23:36:00 CDT, Stop date: 11/16/17 23:36:00 CDT Notes: (Same as:MORPhine Sulfate) Start Date: 11/16/17 Stop Date: 11/17/17 Status: Completedmorphine Sulfate 4 mg, Route: IVP, ONCE, Dosing Weight 77.273, kg, Priority: STAT, Start date: 23:16:00 CDT,Stop date: 11/16/17 23:16:00 CDT Start Date: 11/16/17 Stop Date: 11/16/17 Status: Completedondansetron 4 mg, Route: IVP, Drug form: INJ, ONCE, Dosing Weight 77.273, kg, Priority: STAT , Start date: 11/16/17 23:16:00 CDT, Stop date: 11/16/17 23:16:00 CDT Start Date: 11/16/17 Stop Date: 11/16/17 Status: CompletedPhenergan 12.5 mg, 0.5 mL, Route: IVPB, Drug form: INJ, ONCE, Dosing Weight 77.273, kg, Priority: STAT, Start date: 11/17/17 0:35:00 CDT, Stop date: 11/17/17 0:35:00 CDT Notes: Do not give IV push. (Same as: Phenergan) Start Date: 11/17/17 Stop Date: 11/17/17 Status: CompletedSodium Chloride 0.9% (Bolus) IV 1,000 mL, 1000 ml/hr, Infuse Over: 1 hr, Route: IV, 1,000, Drug form: INJ, ONCE , Priority: STAT, Dosing Weight 77.273 kg, Start date: 11/17/17 1:25:00 CDT, Stop date: 11/17/17 1:25:00 CDT Start Date: 11/17/17 Stop Date: 11/17/17 Status: CompletedZofran ODT 4 mg oral tablet, disintegrating 4 mg=1 tab, PO, Q8H, PRN Nausea and Vomiting, Dissolve tab under tongue, # 9 tab , 0 Refill(s) Start Date: 11/17/17 Stop Date: 11/20/17 Status: Ordered Results BLOOD BANK RESULTS Most recent to oldest [Reference Range]: 1 ABO/Rh O POS *Unknown* (11/16/17 11:59 PM) Antibody Scrn Negative (11/16/17 11:59 PM) ELECTROLYTES Most recent to oldest [Reference Range]: 1 Sodium Lvl [135-145 mEq/L] 141 mEq/L (11/16/17 11:24 PM) Potassium Lvl [3.5-5.1 mEq/L] 3.7 mEq/L (11/16/17 11:24 PM) Chloride Lvl [95-109 mEq/L] 103 mEq/L (11/16/17 11:24 PM) CO2 [24-32 mEq/L] 28 mEq/L (11/16/17 11:24 PM) AGAP [10.0-20.0 mEq/L] 13.7 mEq/L (11/16/17 11:24 PM) CHEM PANEL Most recent to oldest [Reference Range]: 1 Creatinine Lvl [0.50-1.40 mg/dL] 1.05 mg/dL (11/16/17 11:24 PM) eGFR 77 mL/min/1.73m2 1 *NA* (11/16/17 11:24 PM) BUN [7-22 mg/dL] 11 mg/dL (11/16/17 11:24 PM) Glucose Lvl [70-99 mg/dL] 101 mg/dL *HI* (11/16/17 11:24 PM) Calcium Lvl [8.5-10.5 mg/dL] 10.3 mg/dL (11/16/17 11:24 PM) 1Result Comment: The eGFR is calculated [...] eGFR should be multiplied by the estimated BMI.ENDOCRINOLOGY Most recent to oldest [Reference Range]: 1 hCG Tot <1 mIU/mL *NA* (11/16/17 11:24 PM) URINE AND STOOL Most recent to oldest [Reference Range]: 1 UA Turbidity [Clear] Slight Cloudy (11/17/17 3:24 AM) UA Color [Yellow] Yellow *NA* (11/17/17 3:24 AM) UA pH [5.0-8.0] 8.0 (11/17/17 3:24 AM) UA Spec Grav [<=1.030] 1.010 (11/17/17 3:24 AM) UA Glucose [Negative] Negative (11/17/17 3:24 AM) UA Blood [Negative] Moderate *ABN* (11/17/17 3:24 AM) UA Ketones [Negative] Trace *ABN* (11/17/17 3:24 AM) UA Protein [Negative] Negative (11/17/17 3:24 AM) UA Urobilinogen [0.1-1.0 EU/dL] 0.2 EU/dL (11/17/17 3:24 AM) UA Bili [Negative] Negative *NA* (11/17/17 3:24 AM) UA Leuk Est [Negative] Trace *ABN* (11/17/17 3:24 AM) UA Nitrite [Negative] Negative (11/17/17 3:24 AM) UA WBC [None Seen /HPF] 0-2 /HPF (11/17/17 3:24 AM) UA RBC [0-2 /HPF] 11-20 /HPF *ABN* (11/17/17 3:24 AM) UA Bacteria [None Seen /HPF] Few /HPF (11/17/17 3:24 AM) UA Sq Epi [Few /LPF] Few /LPF (11/17/17 3:24 AM) UA Amorph Ifrah [None Seen /HPF] Occasional /HPF *ABN* (11/17/17 3:24 AM) HEMATOLOGY Most recent to oldest [Reference Range]: 1 WBC [3.7-10.4 K/CMM] 9.7 K/CMM (11/16/17 11:24 PM) RBC [4.20-5.40 M/CMM] 4.51 M/CMM (11/16/17 11:24 PM) Hgb [12.0-16.0 g/dL] 14.5 g/dL (11/16/17 11:24 PM) Hct [36.0-48.0 %] 42.6 % (11/16/17 11:24 PM) MCV [80.0-98.0 fL] 94.4 fL (11/16/17 11:24 PM) MCH [27.0-31.0 pg] 32.1 pg *HI* (11/16/17 11:24 PM) MCHC [32.0-36.0 g/dL] 34.0 g/dL (11/16/17 11:24 PM) RDW [11.5-14.5 %] 12.8 % (11/16/17 11:24 PM) MPV [7.4-10.4 fL] 8.7 fL (11/16/17 11:24 PM) Platelet [133-450 K/CMM] 281 K/CMM (11/16/17 11:24 PM) Segs [45.0-75.0 %] 69.4 % (11/16/17 11:24 PM) Lymphocytes [20.0-40.0 %] 23.3 % (11/16/17 11:24 PM) Monocytes [2.0-12.0 %] 6.3 % (11/16/17 11:24 PM) Eosinophils [0.0-4.0 %] 0.4 % (11/16/17 11:24 PM) Basophils [0.0-1.0 %] 0.6 % (11/16/17 11:24 PM) Segs-Bands # [1.5-8.1 K/CMM] 6.8 K/CMM (11/16/17 11:24 PM) Lymphocytes # [1.0-5.5 K/CMM] 2.3 K/CMM (11/16/17 11:24 PM) Monocytes # [0.0-0.8 K/CMM] 0.6 K/CMM (11/16/17 11:24 PM) Basophils # [0.0-0.2 K/CMM] 0.1 K/CMM (11/16/17 11:24 PM) Immunizations No data available for this section Procedures No data available for this section Social History Social History Type Response Substance Abuse Use: Current. Type: Marijuana. Smoking Status Never smoker; Exposure to Tobacco Smoke None; Cigarette Smoking Last 365 Days No; Reg Smoking Cessation Counseling No entered on: 11/16/17 Assessment and Plan No data available for this section
[2018-12-28 00:24] LABS: Absolute Lymphocytes (CBC) 1.8 K/uL (0.7-4.9); Absolute Monocytes 0.6 K/uL (0.1-1.3); Absolute Neutrophil 3.7 K/uL (1.8-8.0); Basophils % 0.6 % (0-1.3); Eosinophils % 1.1 % (0-4.4); Hematocrit 32.7 % (36.0-45.0); Lymphocytes % 29.9 % (15.3-44.8); MPV 9.2 fL (7.6-11.3); RBC Red Blood Cell Count 3.83 M/uL (3.86-4.86)
[2018-12-28 00:38] LABS: BUN Blood Urea Nitrogen 9 mg/dL (7-18); Bicarbonate 28 mmol/L (21-32); Glucose Level 104 mg/dL (74-106); Sodium Level 141 mmol/L (136-145)
--- NOTE | 2018-12-28 01:47 | ER ---
Nurse's Notes [facility] Name: Graham Aguilar Age: 18 yrs Sex: Female : 2000 Arrival Date: 12/27/2018 Time: 22:50 Bed 15 Private MD: Diagnosis: Generalized abdominal pain Presentation: 12/27 23:04 Presenting complaint: Patient states: Pt reports she started having ABD pain since ea yesterday that got worse throughout the day. pt reports the only symptoms she is having is nausea. Transition of care: patient was not received from another setting of care. Onset of symptoms was December 27, 2018. Risk Assessment: Do you want to hurt yourself or someone else? Patient reports no desire to harm self or others. Initial Sepsis Screen: Does the patient meet any 2 criteria? No. Patient's initial sepsis screen is negative. Does the patient have a suspected source of infection? No. Patient's initial sepsis screen is negative. Care prior to arrival: None. 23:04 Method Of Arrival: Ambulatory ea 23:04 Acuity: MOSHE 3 ea Triage Assessment: 23:07 General: Appears uncomfortable, Behavior is calm, cooperative, appropriate for age. ea Pain: Complains of pain in abdomen. Neuro: Level of Consciousness is awake, alert, obeys commands, Oriented to person, place, time, situation. Respiratory: Airway is patent Respiratory effort is even, unlabored, Respiratory pattern is regular, symmetrical. GI: Reports nausea. RN ORTHO: 23:08 LMP 12/13/2018 ea Historical: - Allergies: 23:07 "prescription headache medication"; ea - Home Meds: 23:07 None [Active]; ea - PMHx: 23:07 None; ea - PSHx: 23:07 None; ea - Immunization history:: Adult Immunizations up to date. - Social history:: Smoking status: Patient/guardian denies using tobacco. - Ebola Screening: : No symptoms or risks identified at this time. Screenin:05 Abuse screen: Denies threats or abuse. Nutritional screening: No deficits noted. ea Tuberculosis screening: No symptoms or risk factors identified. Fall Risk None identified. Assessment: 22:51 General: Appears in no apparent distress. comfortable, Behavior is calm, cooperative, cc3 appropriate for age. Pain: Complains of pain in abdomen. Neuro: Level of Consciousness is awake, alert, obeys commands, Oriented to person, place, time, situation, Appropriate for age. Cardiovascular: Denies chest pain, Patient's skin is warm and dry. Respiratory: Airway is patent Respiratory effort is even, unlabored, Respiratory pattern is regular, symmetrical. GI: Bowel sounds present X 4 quads. Abd is soft and non tender X 4 quads. : No signs and/or symptoms were reported regarding the genitourinary system. EENT: No signs and/or symptoms were reported regarding the EENT system. Derm: No signs and/or symptoms reported regarding the dermatologic system. Musculoskeletal: Circulation, motion, and sensation intact. Range of motion: intact in all extremities. 23:21 Reassessment: Patient appears in no apparent distress at this time. Patient and/or cc3 family updated on plan of care and expected duration. Pain level reassessed. Patient is alert, oriented x 3, equal unlabored respirations, skin warm/dry/pink. 12/28 00:17 Reassessment: Patient appears in no apparent distress at this time. Patient and/or cc3 family updated on plan of care and expected duration. Pain level reassessed. Patient is alert, oriented x 3, equal unlabored respirations, skin warm/dry/pink. 01:25 Reassessment: Patient appears in no apparent distress at this time. Patient and/or cc3 family updated on plan of care and expected duration. Pain level reassessed. Patient is alert, oriented x 3, equal unlabored respirations, skin warm/dry/pink. Patient came back from CT scan department, awaiting result. 02:15 Reassessment: Patient appears in no apparent distress at this time. Patient and/or cc3 family updated on plan of care and expected duration. Pain level reassessed. Patient is alert, oriented x 3, equal unlabored respirations, skin warm/dry/pink. ONEIDA Dunn discharged the patient home with prescription given. IV cannula removed and patient left ER vitally stable and ambulatory with her significant other. Patient denies pain at this time. Patient states feeling better. Patient states symptoms have improved. Vital Signs: 12/27 23:05 BP 125 / 90; Pulse 90; Resp 18; Temp 98.1; Pulse Ox 100% on R/A; Weight 58.97 kg; ea Height 5 ft. 7 in. (170.18 cm); Pain 10/10; 06/04 00:15 BP 121 / 92; Pulse 95; Resp 19 S; Pulse Ox 100% on R/A; cc3 01:27 BP 109 / 70; Pulse 77; Resp 18 S; Pulse Ox 99% on R/A; cc3 02:04 BP 105 / 73; Pulse 71; Resp 17 S; Temp 98.2(O); Pulse Ox 99% on R/A; cc3 12/27 23:05 Body Mass Index 20.36 (58.97 kg, 170.18 cm) ea ED Course: 12/27 22:50 Patient arrived in ED. am2 22:51 Amanda Whalen is Primary Nurse. cc3 22:51 Patient has correct armband on for positive identification. Bed in low position. Call cc3 light in reach. Side rails up X 1. Pulse ox on. NIBP on. 22:55 Kor[facility]C [facility]. kb 22:55 Kaden Torres MD is Attending Physician. kb 23:05 Triage completed. ea 23:06 Arm band placed on right wrist. Patient placed in an exam room, on a stretcher, on ea pulse oximetry. 23:50 Inserted saline lock: 20 gauge in left antecubital area, using aseptic technique. Blood cc3 collected. 12/28 02:15 No provider procedures requiring assistance completed. IV discontinued, intact, cc3 bleeding controlled, No redness/swelling at site. Pressure dressing applied. Administered Medications: No medications were administered Outcome: 01:46 Discharge ordered by . kb 02:15 Discharged to home ambulatory, with family. cc3 02:15 Condition: stable 02:15 Discharge instructions given to patient, family, Instructed on discharge instructions, follow up and referral plans. medication usage, Demonstrated understanding of instructions, follow-up care, medications, Prescriptions given X 2. 02:20 Patient left the ED. cc3 Signatures: Korin Dunn FNP-C FNP-Gianna Romero am2 Carmen Rocha, RN RN Amanda Underwood cc3
--- NOTE | 2018-12-28 01:47 | EDPHYS ---
Physician Documentation [facility] Name: Graham Aguilar Age: 18 yrs Sex: Female : 2000 Arrival Date: 12/27/2018 Time: 22:50 Bed 15 Private MD: ED Physician Kaden Torres HPI: 12/28 01:31 This 18 yrs old Female presents to ER via Ambulatory with complaints of kb Abdominal Pain. 01:31 The patient presents with abdominal pain in the left upper quadrant, in the left lower kb quadrant. Onset: The symptoms/episode began/occurred yesterday. The symptoms do not radiate. Associated signs and symptoms: Pertinent positives: nausea, Pertinent negatives: anorexia, blood in stools, chest pain, constipation, diarrhea, dysuria, fever, headache, hematuria, palpitations, shortness of breath, vaginal discharge, vomiting, vomiting blood. The symptoms are described as constant. Modifying factors: The symptoms are alleviated by nothing, the symptoms are aggravated by nothing. Severity of pain: At its worst the pain was moderate in the emergency department the pain is unchanged. The patient has experienced a previous episode. The patient has not recently seen a physician. Pt states it feels like the same pain she had when she had kidney stones. Also feels similar to when she was so she thinks she could be again. Last LMP was middle of November. 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 - Social history:: Smoking status: Patient/guardian denies using tobacco. - Ebola Screening: : No symptoms or risks identified at this time. ROS: 12/28 01:30 Constitutional: Negative for fever, chills, and weight loss, Cardiovascular: Negative kb for chest pain, palpitations, and edema, Respiratory: Negative for shortness of breath, cough, wheezing, and pleuritic chest pain, Back: Negative for injury and pain, : Negative for injury, bleeding, discharge, and swelling, MS/Extremity: Negative for injury and deformity, Skin: Negative for injury, rash, and discoloration, Neuro: Negative for headache, weakness, numbness, tingling, and seizure. Abdomen/GI: Positive for abdominal pain, nausea, Negative for vomiting, diarrhea, constipation, abdominal cramps, abdominal distension, anorexia. Exam: 01:30 Constitutional: This is a well developed, well nourished patient who is awake, alert, kb and in no acute distress. Head/Face: Normocephalic, atraumatic. Neck: Trachea midline, no thyromegaly or masses palpated, and no cervical lymphadenopathy. Supple, full range of motion without nuchal rigidity, or vertebral point tenderness. No Meningismus. Chest/axilla: Normal chest wall appearance and motion. Nontender with no deformity. No lesions are appreciated. Cardiovascular: Regular rate and rhythm with a normal S1 and S2. No gallops, murmurs, or rubs. Normal PMI, no JVD. No pulse deficits. Respiratory: Lungs have equal breath sounds bilaterally, clear to auscultation and percussion. No rales, rhonchi or wheezes noted. No increased work of breathing, no retractions or nasal flaring. Back: No spinal tenderness. No costovertebral tenderness. Full range of motion. Skin: Warm, dry with normal turgor. Normal color with no rashes, no lesions, and no evidence of cellulitis. MS/ Extremity: Pulses equal, no cyanosis. Neurovascular intact. Full, normal range of motion. Neuro: Awake and alert, GCS 15, oriented to person, place, time, and situation. Cranial nerves II-XII grossly intact. Motor strength 5/5 in all extremities. Sensory grossly intact. Cerebellar exam normal. Normal gait. 01:30 Abdomen/GI: Inspection: abdomen appears normal, Bowel sounds: normal, in all quadrants, Palpation: moderate abdominal tenderness, in the left upper quadrant and left lower quadrant. Vital Signs: 12/27 23:05 BP 125 / 90; Pulse 90; Resp 18; Temp 98.1; Pulse Ox 100% on R/A; Weight 58.97 kg; ea Height 5 ft. 7 in. (170.18 cm); Pain 10/10; 0604 00:15 BP 121 / 92; Pulse 95; Resp 19 S; Pulse Ox 100% on R/A; cc3 01:27 BP 109 / 70; Pulse 77; Resp 18 S; Pulse Ox 99% on R/A; cc3 02:04 BP 105 / 73; Pulse 71; Resp 17 S; Temp 98.2(O); Pulse Ox 99% on R/A; cc3 12/27 23:05 Body Mass Index 20.36 (58.97 kg, 170.18 cm) ea MDM: 12/27 22:55 Patient medically screened. 12/28 01:29 Data reviewed: vital signs, nurses notes. Data interpreted: Pulse oximetry: on room air kb is 99 %. Interpretation: normal. Counseling: I had a detailed discussion with the patient and/or guardian regarding: the historical points, exam findings, and any diagnostic results supporting the discharge/admit diagnosis, lab results, radiology results, the need for outpatient follow up, a family practitioner, to return to the emergency department if symptoms worsen or persist or if there are any questions or concerns that arise at home. 12/27 23:14 Order name: Basic Metabolic Panel 12/27 23:14 Order name: CBC with Diff 12/27 23:32 Order name: Urine Dipstick--Ancillary (enter results) nm 12/27 23:32 Order name: Urine --Ancillary (enter results) nm 12/28 00:26 Order name: CBC with Automated Diff; Complete Time: 00:28 EDAL 12/28 00:38 Order name: Basic Metabolic Panel; Complete Time: 00:45 EDAL 12/27 23:14 Order name: IV Saline Lock; Complete Time: 00:01 kb 12/27 23:14 Order name: Labs collected and sent; Complete Time: 00:01 kb 12/27 23:14 Order name: Urine Test (obtain specimen); Complete Time: 00:00 kb 12/27 23:14 Order name: Urine Dipstick-Ancillary (obtain specimen); Complete Time: 00:00 kb Administered Medications: No medications were administered Disposition: 02:23 Co-signature as Attending Physician, Kaden Torres MD. pkl Disposition: 12/28/18 01:46 Discharged to Home. Impression: Generalized abdominal pain. - Condition is Stable. - Discharge Instructions: Abdominal Pain, Adult, [id number]. - Prescriptions for Bentyl 20 mg Oral Tablet - take 1 tablet by ORAL route every 6 hours As needed; 20 tablet. Zofran 4 mg Oral Tablet - take 1 tablet by ORAL route every 6 hours As needed; 20 tablet. - Medication Reconciliation Form, Thank You Letter, Antibiotic Education, Prescription Opioid Use, Work release form form. - Follow up: Emergency Department; When: As needed; Reason: Worsening of condition. Follow up: Private Physician; When: 2 - 3 days; Reason: Recheck today's complaints, Continuance of care, Re-evaluation by your physician. Signatures: Dispatcher [employer] EDKorin Godoy, ERNA TORRES-Kaden Campos MD MD pkl Antunez, Elena, RN RN Amanda Underwood cc3 Corrections: (The following items were deleted from the chart) 01:30 01:30 Abdomen/GI: Positive for abdominal pain, kb lauro 02:20 01:46 12/28/2018 01:46 Discharged to Home. Impression: Generalized abdominal pain. cc3 Condition is Stable. Forms are Medication Reconciliation Form, Thank You Letter, Antibiotic Education, Prescription Opioid Use. Follow up: Emergency Department; When: As needed; Reason: Worsening of condition. Follow up: Private Physician; When: 2 - 3 days; Reason: Recheck today's complaints, Continuance of care, Re-evaluation by your physician. kb
[2018-12-28 05:35] LABS: Urine Blood NEGATIVE (NEG); Urine Glucose NEGATIVE (NEG); Urine Protein 1+ (NEG)
--- NOTE | 2018-12-29 13:17 | RAD REPORT ---
EXAM DESCRIPTION: CT - Stone Protocol - 12/28/2018 4:10 am CLINICAL HISTORY: The patient is 18 years old and is Female; abdominal pain TECHNIQUE: Axial computed tomography images of the abdomen and pelvis without intravenous contrast. Sagittal and coronal reformatted images were created and reviewed. This CT exam was performed usi ng one or more of the following dose reduction techniques: automated exposure control, adjustment o f the mA and/or kV according to patient size, and/or use of iterative reconstruction technique. COMPARISON: No relevant prior studies available. FINDINGS: LUNG BASES: Unremarkable. No mass. No consolidation. ABDOMEN: LIVER: Homogeneous without focal mass. GALLBLADDER AND BILE DUCTS: The gallbladder is contracted. PANCREAS: Unremarkable. No ductal dilation. SPLEEN: Unremarkable. ADRENALS: Unremarkable. No mass. KIDNEYS AND URETERS: Bilateral punctate intrarenal calcifications are present. There is no hydro nephrosis or hydroureter of either kidney. No obstructing renal or ureteral calculus is seen. STOMACH AND BOWEL: The stomach is distended with food contents. The small bowel is normal in shazia iber. Stool is present throughout the colon. There is no mucosal thickening or evidence of bowel obst ruction. PELVIS: APPENDIX: The appendix is normal in caliber without surrounding inflammation. BLADDER: Unremarkable. No stones. REPRODUCTIVE: Unremarkable as visualized. ABDOMEN and PELVIS: INTRAPERITONEAL SPACE: Trace free fluid is present within the pelvis which is likely physiologic . No free air. BONES/JOINTS: No acute fracture. SOFT TISSUES: The soft tissues are normal. VASCULATURE: Unremarkable. No abdominal aortic aneurysm. LYMPH NODES: Unremarkable. No enlarged lymph nodes. IMPRESSION: Bilateral nephrolithiasis without obstruction. Electronically signed by: Jazmin Valencia MD 12/28/2018 1:31 AM CDT Due to temporary technical issues with the PACS/Fluency reporting system, reports are being signed by the in house radiologist as a courtesy to ensure prompt reporting. The interpreting radiologist is f ully responsible for the content of the report.
== END 2018-12-28 02:20 | disposition home or self-care (01) ==
LOC: ER 22:47
DX: R10.84 Generalized abdominal pain (principal)
CPT/HCPCS: 36415; 74176; 76377; 80048; 81003; 81025; 85025; 99284

== ENCOUNTER 2020-07-01 16:13 | Emergency (ER) | payer OTHER, SELFPAY ==
--- OUTSIDE RECORDS SUMMARY | 2020-07-01 16:16 | XMS REPORT | Clinical Summary ---
:2000 Author Organization [facility] Address [address] [place] [id number] Care Team Providers Name Role Phone Asked, No Pcp Primary Care Provider Unavailable Allergies Active Allergy Reactions Severity Noted Date Comments Ceftriaxone Hives High 04/11/2019 Medications Medication Sig Dispensed Refills Start Date End Date Status Take 1 tablet by 0 Act kyra vit,[id number] mouth daily. 29 mg iron- 1 mg tablet per tablet Active Problems Estimated Date of Delivery Comments Yes 10/16/2019 No additional problems on file Social History Tobacco Use Types Packs/Day Years Used Date Never Smoker Smokeless Tobacco: Never Used Alcohol Use Drinks/Week oz/Week Comments Not Currently Estimated Date of Delivery Comments Yes 10/16/2019 Sex Assigned at Date Recorded Not on file Obstetrics History Grav Para Term Pre Abrt (TAB) (SAB) (Ect) Mult Lvng Comments 1 Date Outcome GA Total Labor/2nd/3rd Weight Sex Delivery Anes PTL Irma A 1 A5 Name Clin Labor Current Last Filed Vital Signs Not on file Plan of Treatment Health Maintenance Due Date Last Done Comments CHLAMYDIA SCREENING 2014 CERVICAL CANCER SCREENING 2019 INFLUENZA VACCINE 02/25/2020 Results Not on fileafter 07/01/2019 Advance Directives For more information, please contact: [phone] Type Date 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
--- OUTSIDE RECORDS SUMMARY | 2020-07-01 16:17 | XMS REPORT | Continuity of Care Document ---
:2000 Author Organization [facility] [place] Information [place] Care Team Providers Name Role Phone [facility] Information Exchange Unavailable Un available Problems Problem Status Onset Classification Date Comments Sourc e Date Reported Patient currently Active Problem 10/23/2018 [facility] Medical (finding) Center INDUCTION Active [address] PYELONEPHRITIS, Active [facility] brad 12 WKS GESTATION 018 [facility] PYELONEPHRITIS Active [address] LABOR Active [address] Calculus of 11/20/2017 Alistair s kidney [address] [place] [address] ABDOMINAL PAIN Active [address] Chlamydia Resolved Problem 10/23/2018 [facility] trachomatis [address] [place] [address] infection in Center (disorder) Urinary tract Resolved Problem 10/23/2018 [facility] infection in [address] [place] [address] Center (disorder) Refractory Active Problem 10/23/2018 Data migrated [place] migraine without 016 from [employer] Medical aura (disorder) Works on mention er 08/13/15. 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 Due to [...] documented as Common migraine with intractable migraine. Patient encounter Resolved Problem 10/23/2018 infant [facility] status (finding) 998 [facility] Asthma (disorder) Resolved Problem 11/20/2017 [facility] Headache Resolved Problem 11/20/2017 [facility] ([facility]) [facility] ACUTE Active [facility] PYELONEPHRITIS Medic al Center Medications Medication Details Route Status Patient Ordering Order Source Instructions Provider Date Docusate Sodium 100 mg = 1 cap, Active [place] 100 MG Oral PO, BID, PRN 2019 Medical Capsule Constipation, # Center 60 cap, 0 Refill(s), Pharmacy: [facility] [id number] ibuprofen 600 mg 600 mg = 1 tab, Active [place] oral tablet PO, Q6H, PRN 2019 Medical Other -See Center Comment, # 60 tab, 0 Refill(s), Pharmacy: [facility] [id number] 1 tab, Route: Inactive [place] Multivitamins oral PO, Drug Form: 2019 Medical tablet TAB, Dosing Center Weight 100.455, kg, Daily, Start date: 10/21/18 9:00:00 CDT, Duration: 30 day, Stop date: 11/19/18 9:00:00 CDT M-M-R II Notes: (Same as: No Longer [facility] brad M-M-R II) Active 2019 Medical (icdftqi-blzhq-k Center ubella virus vaccine 0.5 ml INJ VL) WASTE: F/P - Red; E -Red GIVE PRIOR TO DISCHARGE Ibuprofen Notes: (Same as: No Longer [facility] Motrin) "Do Not Active 2019 Medical Crush" Take Center with food. Bisacodyl Notes: (Same As: No Longer [facility] Dulcolax, Active 2019 Medical Correctol) (Do Center Not Crush) "Do Not Crush" Docusate Notes: (Same as: No Longer [facility] Colace) (Do Not Active 2019 Medical Crush) Center zolpidem Notes: (Same As: No Longer [facility] Ambien) Active 2019 Medical Center Methylergonovine Notes: (Same No Longer [facility] as:Methergine) Active 2019 Medical Center lanolin topical 1 appl, Route: No Longer [facility] TOP, PRN, Drug Active 2019 Medical form: OINT, PRN Center Other -See Comment, Start date: 10/20/18 15:35:00 CDT, Duration: 30 day, Stop date: 11/19/18 15:34:00 CDT Benzocaine 200 Notes: (Same As: No Longer [facility] MG/ML Topical Dermoplast) Active 2019 Medica l [place] [Dermoplast] WASTE: Aerosol - Center Return to Pharmacy FOR EXTERNAL USE ONLY Oxytocin 30 unit, 500 mL, [place] Longer [place] Rate: 42 ml/hr, Active 2019 Medical Infuse over: Center 11.9 hr, Dosing Weight 100.455, kg, Route: IV, Total Volume: 500 mL, Start date: 10/20/18 15:35:00 CDT, Duration: 2 day, Stop date: 10/22/18 15:34:00 CDT, Replace Every: 11.9 hr Lactated Ringers 1,000 mL, Rate: No Longer 10/20 Servando IV 1,000 mL 100 ml/hr, Active 2019 Medical Infuse over: 10 Center hr, Route: IV, Dosing Weight 100.455 kg, Total Volume: 1,000, Start date: 10/20/18 15:35:00 CDT, Duration: 30 day, Stop date: 11/19/18 15:34:00 CDT, 2.21, m2 Ondansetron Notes: (Same as: No Longer Servando Sarmiento) Active 2018 Medical MEDICATION WASTE Center Product Size: 4 mg Product Wasted: ___ mg Pitocin 10 unit, Route: Inactive Alistair mendiola IM, ONCE, Dosing 2019 Medical Weight 100.455, Center kg, Priority: STAT, Start date: 10/20/18 15:17:00 CDT, Stop date: 10/20/18 15:17:00 CDT Atropine Sulfate Notes: (Same As: No Longer 09/25 Servando 0.025 MG / Lomotil) MAX Active 2018 Medical Diphenoxylate Adult dose = [address] Hydrochloride 2.5 tabs/day MG Oral Tablet [Lomotil] Oxytocin 30 unit, 500 mL, [place] Longer [place] Rate: Titrate, Active 2019 Medical Dosing Weight Center 100.455, kg, Route: IV, Total Volume: 500 mL, Start date: 10/20/18 6:30:00 CDT, Duration: 2 day, Stop date: 10/22/18 6:29:00 CDT, Replace Every: 24 hr Remove - Notes: Vaginal Inactive Alistair mendiola dinoprostone insert: to be 2019 Medic al (Cervidil) insert removed 1 hour Center prior to oxytocin administration or 12 hours after insertion. Cervidil Notes: (Same as: Inactive [place] Cervidil) 2019 [facility] Misoprostol Notes: (Same [place] Longer [place] as:Cytotec) Active 2019 Medical Take with food Center Famotidine Notes: (Same as: No Longer [facility] Pepcid) Can be Active 2019 Medical dilute in 5-10cc Center NS IVP: Slow IV push over at least 2 minutes. Carboprost Notes: (Same As: No Longer [facility] Hemabate) Active 2019 [facility] Citric Acid / Notes: (Same As: No Longer [facility] sodium citrate Bicitra, Active 2018 [facility] Cytra-2) [facility] citrate-citric acid (500-334 mg/5 mL): 1 mL contains sodium 1 mEq/mL and bicarbonate 1 mEq/mL Methylergonovine Notes: (Same No Longer [facility] as:Methergine) Active 2019 [facility] Acetaminophen 325 Notes: (Same as: No Longer [facility] MG / Hydrocodone [place] 325/5) Do Active 2019 [facility] Bitartrate 5 MG not exceed Cente r Oral Tablet 4gm/day of acetaminophen. Lidocaine Notes: No Longer [facility] Hydrochloride 10 Preservative Active 2018 V[place] d[place] MG/ML Injectable free. (Same as: [place] Solution Xylocaine MPF) Ondansetron Notes: (Same as: No Longer [facility] Zofran) Active 2019 Medical MEDICATION WASTE Center Product Size: 4 mg Product Wasted: ___ mg Terbutaline Notes: DO NOT No Longer [facility] USE IN BECK OPERATOR Active 2019 Medical AREA (Same Center As: [place]) Butorphanol Notes: (Same As: No Longer [facility] Stadol) Active 2019 Medical MEDICATION WASTE Center Product Size: 2 mg Product Wasted: __1_ mg Oxytocin 30 unit, 500 mL, [place] Longer [place] Rate: 42 ml/hr, Active 2019 Medical Infuse over: Center 11.9 hr, Dosing Weight 100.455, kg, Route: IV, Total Volume: 500 mL, Start date: 10/19/18 18:50:00 CDT, Duration: 2 day, Stop date: 10/21/18 18:49:00 CDT, Replace Every: 11.9 hr Calcium Chloride 1,000 mL, 1,000 No Longer 10/19 [place] 0.0014 MEQ/ML / ml/hr, Infuse Active 2018 Vt dical Potassium Chloride Over: 1 hr, C enter 0.004 MEQ/ML / Route: IV, Sodium Chloride 1,000, Drug 0.103 MEQ/ML / form: INJ, ONCE, Sodium Lactate Dosing Weight 0.028 MEQ/ML 100.455 kg, Injectable Start date: Solution 10/19/18 18:50:00 CDT, Stop date: 10/19/18 18:50:00 CDT, Bolus for regional anesthesia per unit routine Lactated Ringers 1,000 mL, Rate: No Longer 10/19 [place] IV 1,000 mL 125 ml/hr, Active 2018 Medical Infuse over: 8 Center hr, Route: IV, Dosing Weight 100.455 kg, Total Volume: 1,000, Start date: 10/19/18 18:50:00 CDT, Duration: 30 day, Stop date: 11/18/18 18:49:00 CDT, 2.21, m2 Ibuprofen Notes: (Same as: No Longer [place] Motrin) "Do Not Active 2018 Medical Crush" Take Center with food. Ondansetron 4 MG 4 mg = 1 tab, Active [place] Disintegrating PO, Q8H, PRN 2018 Medi shazia Tablet [Zofran] Nausea and Cente r Vomiting, Dissolve tab under tongue, # 9 tab, 0 Refill(s) Tamsulosin 0.4 mg = 1 cap, Active [place] hydrochloride 0.4 PO, Daily, # 5 2018 Medical MG Oral Capsule cap, 0 Refill(s) Center [Flomax] Ketorolac 15 mg, Route: [place]active [place] IVP, Drug form: 2018 Medical INJ, ONCE, Center Dosing Weight 77.273, kg, Priority: STAT, Start date: 11/17/17 2:05:00 CDT, Stop date: 11/17/17 2:05:00 CDT Sodium Chloride 1,000 mL, 1000 Inactive 11/17[facility] Servando 0.9% (Bolus) IV ml/hr, Infuse [address] [place] [address] Over: 1 hr, [place] Route: IV, 1,000, Drug form: INJ, ONCE, Priority: STAT, Dosing Weight 77.273 kg, Start date: 11/17/17 1:25:00 CDT, Stop date: 11/17/17 1:25:00 CDT Phenergan Notes: Do not Inactive 11/17[facility] [place] give IV push. 2018 Medical (Same as: [place] Phenergan) 30 ML Morphine Notes: (Same No Longer [place] Sulfate 5 MG/ML as:MORPhine Active 2018 [facility] Injection Sulfate) [place] Ondansetron 4 mg, Route: Inactive 11/17[facility] Ubaldo as IVP, Drug form: 2018 Medical INJ, ONCE, Center Dosing Weight 77.273, kg, Priority: STAT, Start date: 11/16/17 23:16:00 CDT, Stop date: 11/16/17 23:16:00 CDT Morphine 4 mg, Route: Inactive 11/17[facility] Servando IVP, ONCE, 2018 Medical Dosing Weight Center 77.273, kg, Priority: STAT, Start date: 11/16/17 23:16:00 CDT, Stop date: 11/16/17 23:16:00 CDT Allergies, Adverse Reactions, Alerts Substance Category Reaction Severity Reaction Status Date Comments S ource type Reported acetaminoph Assertion Hallucinat Drug Active Data [facility] en/butalbit ions/Chest allergy 6 migrated Medical al/caffeine Pain, from [facility] er <sup>1</sup Hallucinat eClinical > ions/Chest Works on Pain 08/11/16. Originally documented as Fioricet. Reaction: Hallucinati ons/Chest Pain Immunizations Immunization Date Given Site Status Last Comments Source Updated diphtheria/pertus 10/21/2018 Left completed [place] Al sis, acel/tetanus deltoid Vt dical adult [place] influenza virus 04/15/2018 Not Given [facility] vaccine, Medical inactivated<sup>1 Ce nter </sup> Results Order Name Results Value Reference Date Interpretation Comments Funmi rce Range HEMATOLOGY Hct 28.7 36.0 - 10/21 [facility] 48.0 /2019 [facility] HEMATOLOGY Hgb 9.7 12.0 - 10/21 [place] 16. [facility] BLOOD BANK ABO/Rh O POS 10/20 [facility] RESULTS [facility] BLOOD BANK Antibody Scrn Negative 10/20 [place] as RESULTS (10/19/18 7:01 PM) [facility] CHEM PANEL LDH 183 98 - 192 10/20 [facility] CHEM PANEL Uric Acid 4.8 2.5 - 7.0 10/20 [facility] CHEM PANEL eGFR 125 10/20 Result Comment: The Medical eGFR is Center calculated using the CKD-EPI formula. In most young, healthy individuals the eGFR will be >90 mL/min/1.73m2 . The eGFR declines with age. An eGFR of 60-89 may be normal in some populations, particularly the elderly, for whom the CKD-EPI formula has not been extensively validated. Use of the eGFR is not recommended in the following populations:< br/>
Carey viduals with unstable creatinine concentration s, including patients and those with serious co-morbid conditions.<b r/>
Patie nts with extremes in muscle mass or diet.

The data above are obtained from the National Kidney Disease Education Program (NKDEP) which additionally recommends that when the eGFR is used in patients with extremes of body mass index for purposes of drug dosing, the eGFR should be multiplied by the estimated BMI. CHEM PANEL Creatinine 0.70 0.50 - 10/20 [facility] Lvl 1.40 [facility] CHEM PANEL ALT 14 0 - 65 10/20 [facility] CHEM PANEL AST 14 0 - 37 10/20 [facility] HEMATOLOGY WBC 12.2 3.7 - 10.4 10/20 [facility] HEMATOLOGY RBC 3.81 4.20 - 10/20 [place] 5.40 [facility] HEMATOLOGY Hgb 11.4 12.0 - 10/20 [facility] 16. [facility] HEMATOLOGY Hct 34.2 36.0 - 10/20 [place] 48.0 [facility] HEMATOLOGY MCV 89.9 80.0 - 10/20 [place] 98.0 [facility] HEMATOLOGY RDW 13.2 11.5 - 10/20 [place] 14.5 [facility] HEMATOLOGY Platelet 285 133 - 450 10/20 [facility] HEMATOLOGY MPV 8.7 7.4 - 10.4 10/20 [facility] HEMATOLOGY MCH 30.0 27.0 - 10/20 [facility] 31.0 [facility] HEMATOLOGY MCHC 33.4 32.0 - 10/20 [facility] 36.0 [facility] HEMATOLOGY Segs 78.7 45.0 - 10/20 [facility] 75.0 [facility] HEMATOLOGY Neutrophils # 9.6 1.5 - 8.1 10/20 [facility] HEMATOLOGY Lymphocytes 15.2 20.0 - 10/20 [facility] 40.0 [facility] HEMATOLOGY Monocytes 5.3 2.0 - 12.0 10/20 [facility] HEMATOLOGY Eosinophils 0.4 0.0 - 4.0 10/20 [facility] HEMATOLOGY Basophils 0.4 0.0 - 1.0 10/20 [facility]2018 [facility] HEMATOLOGY Monocytes # 0.6 0.0 - 0.8 10/20 [facility] HEMATOLOGY Lymphocytes # 1.9 1.0 - 5.5 10/20 [facility] IMMUNOLOGY Treponemal Ab Non-Reactive Non 10/20 [facility] (10/19/18 7:01 PM) [place] IMMUNOLOGY HIV. Negative Negative 10/20 [facility] (10/19/18 7:01 PM) [place] IMMUNOLOGY Hep Bs Ag Negative Negative 10/20 [facility] (10/19/18 7:01 PM) [place] URINE AND UA Sq Epi Few /LPF Few /LPF 11/17 [facility] URINE AND UA Amorph Occasional None Seen 11/17 [facility] s STOOL Ifrah /HPF /HPF /2017 [facility] URINE AND UA Bacteria Few /HPF None Seen 11/17 [facility] /HPF /[address] [place] [address] URINE AND UA RBC 11-20 /HPF 0 - 2 11/17 [facility] URINE AND UA WBC 0-2 /HPF None Seen 11/17 [facility] STOOL /HPF /[address] [place] [address] URINE AND UA Blood Moderate Negative 11/17 [facility] STOOL *ABN* [facility] (11/17/17 3:24 AM) [place] URINE AND UA Nitrite Negative Negative 11/17 [facility] (11/17/17 3:24 AM) [facility] URINE AND UA Leuk Est Trace Negative 11/17 [facility] *ABN* /2017 [facility] (11/17/17 3:24 AM) [place] URINE AND UA 0.2 0.1 - 1.0 11/17 [facility] Urobilinogen /2017 [facility] URINE AND UA Bili Negative Negative 11/17 [facility] STOOL *NA* /2017 [facility] (11/17/17 3:24 AM) [place] URINE AND UA Protein Negative Negative 11/17 [facility] STOOL (11/17/17 3:24 AM) [facility] URINE AND UA Ketones Trace Negative 11/17 [facility] *ABN* /2017 [facility] (11/17/17 3:24 AM) [place] URINE AND UA Glucose Negative Negative 11/17 [facility] (11/17/17 3:24 AM) [facility] URINE AND UA pH 8.0 5.0 - 8.0 11/17 [facility] URINE AND UA Turbidity Slight Cloudy Clear 11/17 [facility] (11/17/17 3:24 AM) [facility] URINE AND UA Color Yellow Yellow 11/17 [facility] *NA* /2017 [facility] (11/17/17 3:24 AM) [place] URINE AND UA Spec Grav 1.010 <=1.030 11/17 [facility] BLOOD BANK Antibody Scrn Negative 11/17 [facility] as RESULTS (11/16/17 11:59 PM) [facility] BLOOD BANK ABO/Rh O POS 11/17 [place] RESULTS [facility] ELECTROLYTE AGAP 13.7 10.0 - 11/17 [place] S 20.0 [facility] ELECTROLYTE eGFR 77 11/17 Result [facility] S /2017 Comment: The Medical eGFR is Center calculated using the CKD-EPI formula. In most young, healthy individuals the eGFR will be >90 mL/min/1.73m2 . The eGFR declines with age. An eGFR of 60-89 may be normal in some populations, particularly the elderly, for whom the CKD-EPI formula has not been extensively validated. Use of the eGFR is not recommended in the following populations:< br/>
Carey viduals with unstable creatinine concentration s, including patients and those with serious co-morbid conditions.<b r/>
Patie nts with extremes in muscle mass or diet.

The data above are obtained from the National Kidney Disease Education Program (NKDEP) which additionally recommends that when the eGFR is used in patients with extremes of body mass index for purposes of drug dosing, the eGFR should be multiplied by the estimated BMI. ELECTROLYTE CO2 28 24 - 32 11/17 [facility]2017 [facility] ELECTROLYTE Calcium Lvl 10.3 8.5 - 10.5 11/17 [place] [facility] ELECTROLYTE Glucose Lvl 101 70 - 99 11/17 [facility]2017 [facility] ELECTROLYTE Chloride Lvl 103 95 - 109 11/17 [facility] 2017 [facility] ELECTROLYTE Sodium Lvl 141 135 - 145 11/17 [facility]2017 [facility] ELECTROLYTE BUN 11 7 - 22 11/[address] ELECTROLYTE Creatinine 1.05 0.50 - 11/17 [facility] S Lvl 1.40 [facility] ELECTROLYTE Potassium Lvl 3.7 3.5 - 5.1 11/17 [place] [facility] ENDOCRINOLO hCG Tot <1 11/17 [facility] GY [facility] HEMATOLOGY Platelet 281 133 - 450 11/17 [facility]2017 [facility] HEMATOLOGY MPV 8.7 7.4 - 10.4 11/[address] HEMATOLOGY WBC 9.7 3.7 - 10.4 11/[address] HEMATOLOGY RBC 4.51 4.20 - 11/17 [facility] 5.40 [facility] HEMATOLOGY Hgb 14.5 12.0 - 11/17 [place] 16.0 [facility] HEMATOLOGY Hct 42.6 36.0 - 11/17 [place] 48.0 [facility] HEMATOLOGY MCV 94.4 80.0 - 11/17 [facility] 98.0 [facility] HEMATOLOGY RDW 12.8 11.5 - 11/17 [facility] 14.5 [facility] HEMATOLOGY MCHC 34.0 32.0 - 11/17 [facility] 36.0 [facility] HEMATOLOGY MCH 32.1 27.0 - 11/17 [place] 31.0 [facility] HEMATOLOGY Monocytes # 0.6 0.0 - 0.8 11/17 [facility]2017 [facility] HEMATOLOGY Basophils # 0.1 0.0 - 0.2 11/17 [facility] s [facility] HEMATOLOGY Eosinophils 0.4 0.0 - 4.0 11/17 [facility] s [facility] HEMATOLOGY Basophils 0.6 0.0 - 1.0 11/17 [facility]2017 [facility] HEMATOLOGY Segs-Bands # 6.8 1.5 - 8.1 11/17 [facility] HEMATOLOGY Lymphocytes 23.3 20.0 - 11/17 [facility] 40.0 [facility] HEMATOLOGY Monocytes 6.3 2.0 - 12.0 11/17 [facility]2017 [facility] HEMATOLOGY Lymphocytes # 2.3 1.0 - 5.5 11/17 [place] [facility] HEMATOLOGY Segs 69.4 45.0 - 11/17 [facility] 75.0 [facility] Pathology Reports No Data Provided for This Section Diagnostic Reports Report Value Date Source Retroperitoneal Complete EXAM: US RENAL 04/20/2018 [facility] US DATE: 04/20/2018 at 1005 hours Ce nter INDICATION: iup at 12wks 5da ys with h/o of kidney stones admitted with severe r flank pain ADDITIONAL INFORMATION: None. COMPARISON: None. TECHNIQUE: Multiplanar yuval carol and color Doppler ultrasound of the kidneys and urinary bladder. FINDINGS: Right kidney: Size: 11.5 x 4.8 x 4.4 cm. Cortical thickness: Normal. Hydronephrosis: Mild hydrone phrosis noted at the right renal pelvis, improved compared to prior ultrasound. Echogenicity: Normal. Calculi: None. Cysts/Masses: None. Left kidney: Size: 10.1 x 4.6 x 4.2 cm. Cortical thickness: Normal. Hydronephrosis: None. Echogenicity: Normal. Calculi: None. Cysts/Masses: None. Bladder: Right ureteral jet, otherwise normal. Free fluid: None. Other: None. IMPRESSION: 1. Mild and improved right hydronephros is, likely secondary to gravid uterus. 2. Right ureteral jet. 3. No sonographic evidence of nephrolithiasis. Abdomen/Pelvis wo contrast EXAM: Abdomen/Pelvis wo contrast MRI 04/15/2018 [facility] DATE: 04/15/2018 at 1247 hours. INDICATION: 18-year-old preg nant woman with right flank pain. There is a clinical concern for acute appendicitis. COMPARISON: Renal ultrasound on 04/14/2018. TECHNIQUE: Multiplanar, mult isequence MR images of the abdomen and pelvis were obtained without intravenous contrast administration. IV Contrast: None. Protocol: Routine. FINDINGS: Lines and tubes: None. Lower thorax: Unremarkable. Liver and biliary tree: Normal. Gallbladder: Normal. No MR evidence of gallstone s. Adrenals: Normal. Spleen: Normal. Pancreas: Normal. Kidneys and proximal ureters : Mild right hydronephrosis and asymmetric perinephric stranding/edema (image 14-15 of series 4). Bladder: No focal lesions. A right ureteral jet is partially imaged (image 8, series 6). Reproductive organs: A single intrauterine pregn sheree is noted. Gastrointestinal tract: Unremarkable with normal caliber. Appendix: Normal (image 22, series 3). Peritoneum and retroperitone um: No free air or drainable fluid collections. A small amount of pelvic free fluid is nonspecific (image 16, series 6). Lymph nodes: No pathologic adenopathy. Vasculature: Unremarkable. Bones: No acute abnormality. Soft tissues: Unremarkable. IMPRESSION: 1. Mild RIGHT hydronephrosi s is likely secondary to mass effect from the enlarged uterus and intrauterine . 2. Normal appendix. 3. Single intrauterine preg nasrin. Recommend continued follow-up with a dedicated pelvic US. 4. Small amount of nonspecific pelvic free flui d. Preg < 14wks sing gest w EXAMINATION: FIRST TRIMESTER PELVIC SONOGRAM 04/14/2018 [facility] transvag/Dop US HISTORY: Pelvic pain in the setting of ; FINDINGS: There is a single viable int ra-uterine with heart rate of 136 beats per minute (bpm). The mean sac diameter is 5.22 cm corresponding with 11 weeks 2 days. The crown-rump length is 5.4 cm corresponding with 12 weeks 1 days. There is no subchorionic hemorrhage. Sonographic gestational age is 11 weeks 5 days. The uterus has a length of 1 1.2 cm, AP dimension of 7.2 cm, and transverse dimension of 9.2 cm. The right ovary measures 2.9 x 1.6 x 3 cm and the left 3.1 x 2.3 x 2 cm. There are scattered small follicl es in each ovary. No abnorma l masses or fluid collections are seen on either side. There is no free fluid within the cul-de-sac. IMPRESSION: 1. Single viable intra-uter ine with heart rate of 136 bpm. Sonographic gestational age is 11 weeks 5 days. Retroperitoneal Complete CLINICAL HISTORY: - right flank pain 04/14/2018 [facility] AGE: 18 years GENDER: Female TECHNIQUE: Grayscale and li mited doppler images of the kidneys were performed and inside outside sales representative images were submitted for evaluation. COMPARISON: None available FINDINGS: Right kidney: The echogenici ty is normal. The kidney measures 10.7 x 4.4 x 5.1 cm with a cortical thickness of 1.3 cm. Borderline right hydronephrosis. A punctate echogenic focus is noted in the inferio r pole of the right kidney w hich is favored represent prominent renal sinus fat. No twinkle artifact is seen on color Doppler flow at this site. No posterior acoustic tearing. Left Kidney: The echogenicit y is normal. The kidney measures 11.4 x 4.9 x 5.3 cm with a cortical thickness of 1.3 cm. There is no hydronephrosis or large shadowing calculus. Bladder: Collapsed Vascular: Visualized portion s of the IVC are patent. There is no obvious aneurysmal dilatation of the aorta. The origins of the common iliac arteries are not seen sonographically. IMPRESSION: Borderline right hydronephrosis. Pelvis w Transvag and EXAM: US PELVIS TRANSABDOMINAL 11/17/2017 [facility] Pelvis Doppler US EXAM: US PELVIS TRANSVAGINAL WITH DOPPLER Center DATE: 11/16/2017 11:23 PM CDT INDICATION: - LLQ abdominal pain, r/o ectopic v s. ovarian torsion ADDITIONAL INFORMATION: Beta hCG is negative COMPARISON: CT abdomen pelvis 12/26/2014 TECHNIQUE: Multiplanar yuval carol, color Doppler and spectral Doppler ultrasound of the pelvis were obtained: Transabdominally through a distended urinary irene dder. Transvaginally postvoid. FINDINGS: Uterus/Myometrium: Size: 6.3 x 2.8 x 4 cm Echogenicity: Normal. Masses: None. Cervix: Normal. Endometrium: Thickness: 3 mm Cysts/Masses: None. Right ovary: Size: 3.6 x 2.2 x 2.3 cm Cysts/Masses: None. Left ovary: Size: 3.5 x 2.1 x 1.9 cm Cysts/Masses: None. Adnexa: Normal. Pelvic vasculature: Normal. No Doppler abnormali ties. Free fluid: None. Other: Dilated left ureter w ith 4 mm nonobstructive calculus at the left ureterovesical junction. IMPRESSION: 1. Dilated left ureter with 4 mm nonobstructive calculus at the left ureterovesical junction. CT abdomen pelvis noncontrast may be beneficial for complete evaluation. 2. Otherwise normal pelvic ultrasound. 3. No Doppler/flow abnormalities. Findings discussed with Dr. Daniels at 0121 hours on 11/17/2017. [place] SECTION: Body Consultation Notes No Data Provided for This Section Discharge Summaries No Data Provided for This Section History and Physicals No Data Provided for This Section Vital Signs Vital Sign Value Date Comments Source Respitory Rate 18 10/21/2018 [facility] Systolic (mm Hg) 104 10/21/2018 [facility] Diastolic (mm Hg) 71 10/21/[address] [facility] Heart Rate 90 10/21/2018 [facility] Temperature Oral (F) 97.6 F 10/21/2018 [facility] Heart Rate 100 10/21/2018 [facility] Systolic (mm Hg) 123 10/21/2018 [facility] Diastolic (mm Hg) 82 10/21/[address] [facility] Respitory Rate 18 10/21/2018 [facility] Temperature Oral (F) 98.5 F 10/21/2018 [facility] Respitory Rate 18 10/20/2018 [facility] Heart Rate 105 10/20/2018 [facility] Systolic (mm Hg) 125 10/20/2018 [facility] Diastolic (mm Hg) 70 10/20/[address] [facility] Temperature Oral (F) 98.5 F 10/20/2018 [facility] Height 170.18 cm 10/19/2018 [facility] BMI Calculated 34.69 10/19/2018 [facility] Weight 100.455 10/19/2018 [facility] Systolic (mm Hg) 110 11/17/2017 [facility] Diastolic (mm Hg) 81 11/17/[address] [facility] Respitory Rate 18 11/17/2017 [facility] Heart Rate 80 11/17/2017 [facility] Temperature Oral (F) 98.4 F 11/17/2017 [facility] Systolic (mm Hg) 97 11/17/2017 [facility] (mm Hg) 66 11/17/[address] [facility] Respitory Rate 18 11/17/2017 [facility] Heart Rate 93 11/17/2017 [facility] Temperature Oral (F) 98.8 F 11/17/2017 [facility] BMI Calculated 26.68 11/17/2017 [facility] Weight 77.273 11/17/2017 [facility] Temperature Oral (F) 98.4 F 11/17/2017 [facility] Height 170.18 cm 11/17/2017 [facility] Respitory Rate 18 11/17/2017 [facility] Heart Rate 92 11/17/2017 [facility] Systolic (mm Hg) 134 11/17/2017 [facility] Diastolic (mm Hg) 89 11/17/[address] [facility] Encounters Location Location Encounter Encounter Reason Attending ADM DC Stat us Source Details Type Number For Provider Date Date Visit Outpatient [id number] BHARGAV 01/03 Activ e [facility], Julio Cesar Gauthier [facility] Emergency [id number] Kaden 11/17 11/17 [facility] Inpatient [id number] Nisha Hongda 10/19 10/22 [facility] /2018 [facility] Procedures No Data Provided for This Section Assessment and Plan No Data Provided for This Section Plan of Care No Data Provided for This Section Social History Social History Date Source Social History TypeResponse 04/15/2018 [facility] Substance Abuse Use: None.1 Alcohol Never Smoking Status Never smoker; Exposure to Tobacco Smoke None; Cigarette Smoking Last 365 Days No; Reg Smoking Cessation Counseling No entered on: 10/19/18 1Never any use of marijuana. Family History No Data Provided for This Section Advance Directives No Data Provided for This Section Functional Status No Data Provided for This Section
--- OUTSIDE RECORDS SUMMARY | 2020-07-01 16:18 | XMS REPORT | Continuity of Care Document ---
:2000 Author Organization [facility] t Address [address] [place] [address] Care Team Providers Name Role Phone Asked, Pcp Primary Care Physician Unavailable Pablo Lara Attending Clinician Elke Attending Clinician Jeremiah Attending Clinician Elke Admitting Clinician Problems Condition Condition Condition Status Onset Resolution Last Treating Co mments Source Name Details Category Date Date Treatment Clinician Date Patient Problem Active 2018-10-23 Charles georgina currently 10-19 21:59:57 l Patient 00:00: Catherine nn (finding) currently 00 (finding) Active 10/19/2018 Problem 10/23/2018 [facility] INDUCTION Diagnosis Active 2018-11-01 Memoria 10-19 10:10:00 l 00:00: [place] INDUCTION 00 Active 10/19/2018 [facility] PYELONEPHR Diagnosis Active 2018-04-28 Memoria ITIS, 04-19 13:42:00 l WKS 00:00: Julio Cesar GESTATION PYELONEPHR 00 ITIS, 12 WKS GESTATION Active 04/19/2018 [facility] PYELONEPHR Diagnosis Active 2018-04-19 Memoria ITIS 04-19 14:23:00 l 00:00: [place] PYELONEPHR 00 ITIS Active 04/19/2018 [facility] LABOR Diagnosis Active 2018-10-05 Mem oria 12-25 16:33:00 l LABOR 00:00: Julio Cesar 00 Active 12/25/2017 [facility] ABDOMINAL Diagnosis Active 2017-11-17 Memoria PAIN 11-16 00:34:00 l 00:00: [place] ABDOMINAL 00 PAIN Active 11/16/2017 [facility] Refractory Problem Active 2018-10-23 M emoria migraine 01-03 21:59:57 l without 00:00: [place] aura Refractory 00 (disorder) migraine without aura (disorder) Active 01/04/2016 Problem 10/23/2018 Data migrated from [email or web address] on 08/13/15. 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 Due to the frequency of her migraines, the patient would benefit from a prophylact ic medication . Treatment with nortriptyl ine was recommende d. The possible side effects of this medication were discussed with the patient and her mother. The patinet will also be prescribed a short course of oral steroids in an effort to break the current headache cycle. Originally documented as Common migraine with intractabl e migraine. [facility] Asthma Problem Resolve 2017-11-20 Charles georgina (disorder) d 04:14:53 l Asthma Julio Cesar (disorder) Resolved Problem 11/20/2017 [facility] Headache Problem Resolve 2017-11-20 Me moria (finding) d 04:14:53 l Headache Richard n (finding) Resolved Problem 11/20/2017 [facility] ACUTE Diagnosis Active 2018-04-28 Mem oria PYELONEPHR 13:42:00 l ITIS ACUTE Julio Cesar PYELONEPHR ITIS Active [facility] Calculus Problem 2017-11-20 2017-11-20 Memoria of kidney 11-17 04:14:53 04:14:53 l Calculus 05:00: Richard n of kidney 00 11/17/2017 11/20/2017 [facility] History of Past Illness Condition Condition Condition Status Onset Resolution Last Treating Co mments Source Name Details Category Date Date Treatment Clinician Date Chlamydia Problem Resolve 2018-10-23 2018-10-23 Memoria trachomati d 07-27 21:59:57 21:59:57 l s 00:00: Julio Cesar infection Chlamydia 00 in trachomati s (disorder) infection in (disorder) Resolved 07/27/2017 Problem 10/23/2018 [facility] Urinary Problem Resolve 2018-0 2018-10-23 2018-10-23 Memoria tract d 07-27 21:59:57 21:59:57 l infection Urinary 00:00: Herm alba in tract 00 infection (disorder) in (disorder) Resolved 07/27/2017 Problem 10/23/2018 [facility] Patient Problem Resolve 1997-0 2018-10-23 2018-10-23 Memoria encounter d 07-27 21:59:57 21:59:57 l status Patient 00:00: [place] (finding) encounter 00 status (finding) Resolved 07/27/1997 Problem 10/23/2018 infant [facility] Allergies, Adverse Reactions, Alerts Allergy Allergy Status Severity Reaction(s) Onset Inactive Treating Comm ents Source Name Type Date Date Clinician Padma Waltoni Active Hives [place] one ty to 04-11 Methodi adverse 00:00: st reaction 00 s to drug acetamin acetamin Active Memori a ophen/bu ophen/bu 6-10 l talbital talbital 05:00: Richard n /caffein /caffein 00 e<sup>1< e<sup>1< /sup> /sup> Social History Social Habit Start Date Stop Date Quantity Comments Source ASSERTION 2019-01-23 [facility] ist 00:00:00 Sex Assigned At [facility] ethodist Tobacco use and 2019-04-11 2019-04-11 Never used [facility] ethodist exposure 00:00:00 00:00:00 Alcohol intake 2019-04-11 2019-04-11 Ex-drinker [facility] thodist 00:00:00 00:00:00 (finding) Social History 2018-04-15 2018-04-15 [facility] 03:34:00 03:34:00 Smoking Status Start Date Stop Date Source [facility] Ordered Filled Start Stop Current Ordering Indication Dosage Frequency Signature Comments Components Source Medication Medication Date Date Medication? Clinician (SIG) Name Name Yes 1{tbl} QD Take 1 [place] on vit,calc76- 9-16 tablet by Met johnson iron-folic 17:40: mouth st 29 mg iron- 25 daily. 1 mg tablet per tablet Docusate Yes 100 mg = 1 Mem oria Sodium 100 3-29 cap, PO, l MG Oral 02:39: BID, PRN Richard n Capsule 00 Constipati on, # 60 cap, 0 Refill(s), Pharmacy: [facility] [place] [address] ibuprofen Yes 600 mg = 1 Me moria 600 mg oral 3-29 tab, PO, l tablet 02:39: Q6H, PRN [place] 00 Other -See Comment, # 60 tab, 0 Refill(s), Pharmacy: [facility] [place] [address] Docusate Yes 100 mg = 1 Mem oria Sodium 100 3-29 cap, PO, l MG Oral 02:39: BID, PRN Richard n Capsule 00 Constipati on, # 60 cap, 0 Refill(s), Pharmacy: [facility] [place] [address] ibuprofen Yes 600 mg = 1 Me moria 600 mg oral 3-29 tab, PO, l tablet 02:39: Q6H, PRN [place] 00 Other -See Comment, # 60 tab, 0 Refill(s), Pharmacy: [facility] [place] [address] No 1 tab, Memoria Multivitami 10-21 Route: PO, l ns oral 14:00: Drug Form: Herm alba tablet 00 TAB, Dosing Weight 100.455, kg, Daily, Start date: 10/21/18 9:00:00 CDT, Duration: 30 day, Stop date: 11/19/18 9:00:00 CDT No 1 tab, Memoria Multivitami 10-21 Route: PO, l ns oral 14:00: Drug Form: Herm alba tablet 00 TAB, Dosing Weight 100.455, kg, Daily, Start date: 10/21/18 9:00:00 CDT, Duration: 30 day, Stop date: 11/19/18 9:00:00 CDT M-M-R II No Notes: Memoria 10-20 (Same as: l 21:00: M-M-R II) Julio Cesar (measles-m umps-rubel la virus vaccine 0.5 ml INJ VL) WASTE: F/P - Red; E -Red GIVE PRIOR TO DISCHARGE Ibuprofen No Notes: Memori a - (Same as: l 21:00: Motrin) Julio Cesar "Do Not Crush" Take with food. M-M-R II No Notes: Memoria - (Same as: l 21:00: M-M-R II) [place] 00 (measles-m umps-rubel la virus vaccine 0.5 ml INJ VL) WASTE: F/P - Red; E -Red GIVE PRIOR TO DISCHARGE Ibuprofen No Notes: Memori a - (Same as: l 21:00: Motrin) Julio Cesar 00 "Do Not Crush" Take with food. Bisacodyl No Notes: Memori a - (Same As: l 20:35: Dulcolax, Julio Cesar 00 Correctol) (Do Not Crush) "Do Not Crush" Docusate No Notes: Memoria 10-20 (Same as: l 20:35: Colace) (Do Not Crush) zolpidem No Notes: Memoria 10-20 (Same As: l 20:35: Ambien) Julio Cesar 00 Methylergon No Notes: Charles georgina ovine 10-20 (Same l 20:35: as:Metherg [place] ine) lanolin No 1 appl, Memoria topical 10-20 Route: l 20:35: TOP, PRN, [place] 00 Drug form: OINT, PRN Other -See Comment, Start date: 10/20/18 15:35:00 CDT, Duration: 30 day, Stop date: 11/19/18 15:34:00 CDT Benzocaine No Notes: Memor ia 200 MG/ML 10-20 (Same As: l Topical 20:35: Dermoplast Herm alba Edwards ) WASTE: [Dermoplast Aerosol - ] Return to Pharmacy FOR EXTERNAL USE ONLY Oxytocin No 30 unit, Memor ia - 500 mL, l 20:35: Rate: 42 Julio Cesar 00 ml/hr, Infuse over: 11.9 hr, Dosing Weight 100.455, kg, Route: IV, Total Volume: 500 mL, Start date: 10/20/18 15:35:00 CDT, Duration: 2 day, Stop date: 10/22/18 15:34:00 CDT, Replace Every: 11.9 hr Lactated No 1,000 mL, Charles georgina Ringers IV 10-20 Rate: 100 l 1,000 mL 20:35: ml/hr, [place] 00 Infuse over: 10 hr, Route: IV, Dosing Weight 100.455 kg, Total Volume: 1,000, Start date: 10/20/18 15:35:00 CDT, Duration: 30 day, Stop date: 11/19/18 15:34:00 CDT, 2.21, m2 Ondansetron No Notes: Charles georgina 10-20 (Same as: l 20:35: Zofran) Julio Cesar MEDICATION WASTE Product Size: 4 mg Product Wasted: ___ mg Bisacodyl No Notes: Memori a 10-20 (Same As: l 20:35: Dulcolax, [place] 00 Correctol) (Do Not Crush) "Do Not Crush" Docusate No Notes: Memoria 10-20 (Same as: l 20:35: Colace) Julio Cesar (Do Not Crush) zolpidem No Notes: Memoria - (Same As: l 20:35: Ambien) Julio Cesar Methylergon No Notes: Charles georgina ovine 10-20 (Same l 20:35: as:Metherg [place] ine) lanolin No 1 appl, Memoria topical 10-20 Route: l 20:35: TOP, PRN, Julio Cesar Drug form: OINT, PRN Other -See Comment, Start date: 10/20/18 15:35:00 CDT, Duration: 30 day, Stop date: 11/19/18 15:34:00 CDT Benzocaine No Notes: Memor ia 200 MG/ML 10-20 (Same As: l Topical 20:35: Dermoplast Herm alba Edwards 00 ) WASTE: [Dermoplast Aerosol - ] Return to Pharmacy FOR EXTERNAL USE ONLY Oxytocin No 30 unit, Memor ia - 500 mL, l 20:35: Rate: 42 [place] 00 ml/hr, Infuse over: 11.9 hr, Dosing Weight 100.455, kg, Route: IV, Total Volume: 500 mL, Start date: 10/20/18 15:35:00 CDT, Duration: 2 day, Stop date: 10/22/18 15:34:00 CDT, Replace Every: 11.9 hr Lactated No 1,000 mL, Charles georgina Ringers IV 10-20 Rate: 100 l 1,000 mL 20:35: ml/hr, Infuse over: 10 hr, Route: IV, Dosing Weight 100.455 kg, Total Volume: 1,000, Start date: 10/20/18 15:35:00 CDT, Duration: 30 day, Stop date: 11/19/18 15:34:00 CDT, 2.21, m2 Ondansetron No Notes: Charles georgina 3-27 (Same as: l 20:35: Zofran) MEDICATION WASTE Product Size: 4 mg Product Wasted: ___ mg Pitocin No 10 unit, Memori a - Route: IM, l 20:17: ONCE, Dosing Weight 100.455, kg, Priority: STAT, Start date: 10/20/18 15:17:00 CDT, Stop date: 10/20/18 15:17:00 CDT Pitocin No 10 unit, Memori a - Route: IM, l 20:17: ONCE, Dosing Weight 100.455, kg, Priority: STAT, Start date: 10/20/18 15:17:00 CDT, Stop date: 10/20/18 15:17:00 CDT Atropine No Notes: Memoria Sulfate 3-27 (Same As: l 0.025 MG / 20:16: Lomotil) Her [place] Diphenoxyla 00 MAX Adult te dose = 8 Hydrochlori tabs/day de 2.5 MG Oral Tablet [Lomotil] Atropine No Notes: Memoria Sulfate 3-27 (Same As: l 0.025 MG / 20:16: Lomotil) Her [place] Diphenoxyla 00 MAX Adult te dose = 8 Hydrochlori tabs/day de 2.5 MG Oral Tablet [Lomotil] Oxytocin No 30 unit, Memor ia 3-27 500 mL, l 11:30: Rate: Julio Cesar 00 Titrate, Dosing Weight 100.455, kg, Route: IV, Total Volume: 500 mL, Start date: 10/20/18 6:30:00 CDT, Duration: 2 day, Stop date: 10/22/18 6:29:00 CDT, Replace Every: 24 hr Oxytocin No 30 unit, Memor ia 3-27 500 mL, l 11:30: Rate: [place] 00 Titrate, Dosing Weight 100.455, kg, Route: IV, Total Volume: 500 mL, Start date: 10/20/18 6:30:00 CDT, Duration: 2 day, Stop date: 10/22/18 6:29:00 CDT, Replace Every: 24 hr Remove - No Notes: Memoria dinoproston 3-27 Vaginal l e 11:00: insert: to Julio Cesar (Cervidil) 00 be removed insert 1 hour prior to oxytocin administra tion or 12 hours after insertion. Remove - No Notes: Memoria dinoproston 3-27 Vaginal l e 11:00: insert: to [place] (Cervidil) 00 be removed insert 1 hour prior to oxytocin administra tion or 12 hours after insertion. Cervidil No Notes: Memoria 3-27 (Same as: l 02:00: Cervidil) [place] 00 Cervidil No Notes: Memoria 3-27 (Same as: l 02:00: Cervidil) [address] [address] Misoprostol No Notes: Charles georgina 3-27 (Same l 00:00: as:Cytotec Julio Cesar 00 ) Take with food Famotidine No Notes: Memor ia 3-27 (Same as: l 00:00: Pepcid) [place] 00 Can be dilute in 5-10cc NS IVP: Slow IV push over at least 2 minutes. Carboprost No Notes: Memor ia 3-27 (Same As: l 00:00: Hemabate) [place] 00 Citric Acid No Notes: Charles georgina / sodium 3-27 (Same As: l citrate 00:00: BicitraRichard n 00 Cytra-2) Sodium citrate-ci tric acid (500-334 mg/5 mL): 1 mL contains sodium 1 mEq/mL and bicarbonat e 1 mEq/mL Methylergon No Notes: Charles georgina ovine 3-27 (Same l 00:00: as:Metherg [place] 00 ine) Misoprostol No Notes: Charles georgina 3-27 (Same l 00:00: as:Cytotec [place] 00 ) Take with food Famotidine No Notes: Memor ia 3-27 (Same as: l 00:00: Pepcid) Can be dilute in 5-10cc NS IVP: Slow IV push over at least 2 minutes. Carboprost No Notes: Memor ia 3-27 (Same As: l 00:00: Hemabate) Julio Cesar 00 Citric Acid No Notes: Charles georgina / sodium 3-27 (Same As: l citrate 00:00: BicitrRichard márquez n 00 Cytra-2) Sodium citrate-ci tric acid (500-334 mg/5 mL): 1 mL contains sodium 1 mEq/mL and bicarbonat e 1 mEq/mL Methylergon No Notes: Charles georgina ovine 3-27 (Same l 00:00: as:Metherg [place] 00 ine) Acetaminoph No Notes: Charles georgina en 325 MG / 3-26 (Same as: l Hydrocodone 23:50: [place] Catherien nn Bitartrate 00 325/5) Do 5 MG Oral not exceed Tablet 4gm/day of acetaminop hen. Lidocaine No Notes: Memori a Hydrochlori 3-26 Preservati l de 10 MG/ML 23:50: ve free. He rmann Injectable (Same as: Solution Xylocaine MPF) Ondansetron No Notes: Charles georgina 3-26 (Same as: l 23:50: Zofran) MEDICATION WASTE Product Size: 4 mg Product Wasted: ___ mg Terbutaline No Notes: Charles georgina 3-26 DO NOT l 23:50: USE IN Julio Cesar [employer]NAGER ARE[employer] (Same As: [place]) Butorphanol No Notes: Charles georgina 3-26 (Same As: l 23:50: Stadol) MEDICATION WASTE Product Size: 2 mg Product Wasted: __1_ mg Oxytocin No 30 unit, Memor ia 3-26 500 mL, l 23:50: Rate: 42 Julio Cesar 00 ml/hr, Infuse over: 11.9 hr, Dosing Weight 100.455, kg, Route: IV, Total Volume: 500 mL, Start date: 10/19/18 18:50:00 CDT, Duration: 2 day, Stop date: 10/21/18 18:49:00 CDT, Replace Every: 11.9 hr Calcium No 1,000 mL, Memor ia Chloride 3-26 1,000 l 0.0014 23:50: ml/hr, Julio Cesar MEQ/ML / 00 Infuse Potassium Over: 1 Chloride hr, Route: 0.004 IV, 1,000, MEQ/ML / Drug form: Sodium INJ, ONCE, Chloride Dosing 0.103 Weight MEQ/ML / 100.455 Sodium kg, Start Lactate date: 0.028 10/19/18 MEQ/ML 18:50:00 Injectable CDT, Stop Solution date: 10/19/18 18:50:00 CDT, Bolus for regional anesthesia per unit routine Lactated No 1,000 mL, Charles georgina Ringers IV - Rate: 125 l 1,000 mL 23:50: ml/hr, Julio Cesar 00 Infuse over: 8 hr, Route: IV, Dosing Weight 100.455 kg, Total Volume: 1,000, Start date: 10/19/18 18:50:00 CDT, Duration: 30 day, Stop date: 11/18/18 18:49:00 CDT, 2.21, m2 Ibuprofen No Notes: Memori a 3-26 (Same as: l 23:50: Motrin) [place] 00 "Do Not Crush" Take with food. Acetaminoph No Notes: Charles georgina en 325 MG / 3-26 (Same as: l Hydrocodone 23:50: [place] Catherine nn Bitartrate 00 325/5) Do 5 MG Oral not exceed Tablet 4gm/day of acetaminop hen. Lidocaine No Notes: Memori a Hydrochlori 3-26 Preservati l de 10 MG/ML 23:50: ve free. He rmann Injectable 00 (Same as: Solution Xylocaine MPF) Ondansetron No Notes: Charles georgina 3-26 (Same as: l 23:50: Zofran) MEDICATION WASTE Product Size: 4 mg Product Wasted: ___ mg Terbutaline No Notes: Charles georgina 3-26 DO NOT l 23:50: USE IN [employer] MANAGER AREA (Same As: [place]) Butorphanol No Notes: Charles georgina 3-26 (Same As: l 23:50: Stadol) MEDICATION WASTE Product Size: 2 mg Product Wasted: __1_ mg Oxytocin No 30 unit, Memor ia 3-26 500 mL, l 23:50: Rate: 42 [place] 00 ml/hr, Infuse over: 11.9 hr, Dosing Weight 100.455, kg, Route: IV, Total Volume: 500 mL, Start date: 10/19/18 18:50:00 CDT, Duration: 2 day, Stop date: 10/21/18 18:49:00 CDT, Replace Every: 11.9 hr Calcium No 1,000 mL, Memor ia Chloride -26 1,000 l 0.0014 23:50: ml/hr, MEQ/ML / 00 Infuse Potassium Over: 1 Chloride hr, Route: 0.004 IV, 1,000, MEQ/ML / Drug form: Sodium INJ, ONCE, Chloride Dosing 0.103 Weight MEQ/ML / 100.455 Sodium kg, Start Lactate date: 0.028 10/19/18 MEQ/ML 18:50:00 Injectable CDT, Stop Solution date: 10/19/18 18:50:00 CDT, Bolus for regional anesthesia per unit routine Lactated No 1,000 mL, Charles georgina Ringers IV 10-19 Rate: 125 l 1,000 mL 23:50: ml/hr, Infuse over: 8 hr, Route: IV, Dosing Weight 100.455 kg, Total Volume: 1,000, Start date: 10/19/18 18:50:00 CDT, Duration: 30 day, Stop date: 11/18/18 18:49:00 CDT, 2.21, m2 Ibuprofen No Notes: Memori a 3-26 (Same as: l 23:50: Motrin) Julio Cesar 00 "Do Not Crush" Take with food. Ondansetron 2018-0 Yes 4 mg = 1 Me moria 4 MG 4-24 tab, PO, l Disintegrat 08:00: Q8H, PRN He rmann ing Tablet 00 Nausea and [Zofran] Vomiting, Dissolve tab under tongue, # 9 tab, 0 Refill(s) Ondansetron 2018-0 Yes 4 mg = 1 Me moria 4 MG 4-24 tab, PO, l Disintegrat 08:00: Q8H, PRN He rmann ing Tablet 00 Nausea and [Zofran] Vomiting, Dissolve tab under tongue, # 9 tab, 0 Refill(s) Tamsulosin 2018-0 Yes 0.4 mg = 1 M emoria hydrochlori 4-24 cap, PO, l de 0.4 MG 07:44: Daily, # 5 He rmann Oral 00 cap, 0 Capsule Refill(s) [Flomax] Tamsulosin 2018-0 Yes 0.4 mg = 1 M emoria hydrochlori 4-24 cap, PO, l de 0.4 MG 07:44: Daily, # 5 He rmann Oral 00 cap, 0 Capsule Refill(s) [Flomax] Ketorolac 2018-0 No 15 mg, Memori a 4-24 Route: l 07:05: IVP, Drug [place] 00 form: INJ, ONCE, Dosing Weight 77.273, kg, Priority: STAT, Start date: 11/17/17 2:05:00 CDT, Stop date: 11/17/17 2:05:00 CDT Ketorolac 2018-0 No 15 mg, Memori a 4-24 Route: l 07:05: IVP, Drug Julio Cesar 00 form: INJ, ONCE, Dosing Weight 77.273, kg, Priority: STAT, Start date: 11/17/17 2:05:00 CDT, Stop date: 11/17/17 2:05:00 CDT Sodium 2018-0 No 1,000 mL, Memori a Chloride 4-24 1000 l 0.9% 06:25: ml/hr, Julio Cesar (Bolus) IV 00 Infuse Over: 1 hr, Route: IV, 1,000, Drug form: INJ, ONCE, Priority: STAT, Dosing Weight 77.273 kg, Start date: 11/17/17 1:25:00 CDT, Stop date: 11/17/17 1:25:00 CDT Sodium 2018-0 No 1,000 mL, Memori a Chloride 4-24 1000 l 0.9% 06:25: ml/hr, Julio Cesar (Bolus) IV 00 Infuse Over: 1 hr, Route: IV, 1,000, Drug form: INJ, ONCE, Priority: STAT, Dosing Weight 77.273 kg, Start date: 11/17/17 1:25:00 CDT, Stop date: 11/17/17 1:25:00 CDT Phenergan 2017-0 No Notes: Do Mem oria 4-24 not give l 05:35: IV push. Julio Cesar 00 (Same as: Phenergan) Phenergan 2017-0 No Notes: Do Mem oria 4-24 not give l 05:35: IV push. Julio Cesar 00 (Same as: Phenergan) 30 ML No Notes: Memoria Morphine 4-24 (Same l Sulfate 5 04:36: as:MORPhin He rmann MG/ML 00 e Sulfate) Injection 30 ML No Notes: Memoria Morphine 4-24 (Same l Sulfate 5 04:36: as:MORPhin He rmann MG/ML 00 e Sulfate) Injection Ondansetron 2018-0 No 4 mg, Memor ia 4-24 Route: l 04:16: IVP, Drug Julio Cesar 00 form: INJ, ONCE, Dosing Weight 77.273, kg, Priority: STAT, Start date: 11/16/17 23:16:00 CDT, Stop date: 11/16/17 23:16:00 CDT Morphine 2018-0 No 4 mg, Memoria 4-24 Route: l 04:16: IVP, ONCE, Julio Cesar 00 Dosing Weight 77.273, kg, Priority: STAT, Start date: 11/16/17 23:16:00 CDT, Stop date: 11/16/17 23:16:00 CDT Ondansetron 2018-0 No 4 mg, Memor ia 4-24 Route: l 04:16: IVP, Drug [place] 00 form: INJ, ONCE, Dosing Weight 77.273, kg, Priority: STAT, Start date: 11/16/17 23:16:00 CDT, Stop date: 11/16/17 23:16:00 CDT Morphine 2018-0 No 4 mg, Memoria 4-24 Route: l 04:16: IVP, ONCE, [place] 00 Dosing Weight 77.273, kg, Priority: STAT, Start date: 11/16/17 23:16:00 CDT, Stop date: 11/16/17 23:16:00 CDT Vital Signs Vital Name Observation Time Observation Value Comments Source Respitory Rate 2018-10-21 13:54:00 Memori al [place] Systolic (mm Hg) 2018-10-21 13:54:00 Charles rial [place] Diastolic (mm Hg) 2018-10-21 13:54:00 Mem orial Julio C[place] Heart Rate 2018-10-21 13:54:00 [facility] [place] Temperature Oral (F) 2018-10-21 13:54:00 97.6 F [facility] Julio Cesar Heart Rate 2018-10-21 05:00:00 Memorial Julio Cesar Systolic (mm Hg) 2018-10-21 05:00:00 Charles rial Julio Cesar Diastolic (mm Hg) 2018-10-21 05:00:00 Mem orial [place] Respitory Rate 2018-10-21 05:00:00 Memori al [place] Temperature Oral (F) 2018-10-21 05:00:00 98.5 F Memorial Julio Cesar Respitory Rate 2018-10-20 23:03:00 Memori al [place] Heart Rate 2018-10-20 23:03:00 [facility] Julio Cesar Systolic (mm Hg) 2018-10-20 23:03:00 Charles rial Julio Cesar Diastolic (mm Hg) 2018-10-20 23:03:00 Mem orial Julio Cesar Temperature Oral (F) 2018-10-20 23:03:00 98.5 F [facility] Julio Cesar Height 2018-10-19 23:47:00 170.18 cm [facility] [place] BMI Calculated 2018-10-19 23:47:00 Memori al [place] Weight 2018-10-19 23:47:00 [facility] Julio Cesar Systolic (mm Hg) 2017-11-17 09:02:00 Charles rial [place] Diastolic (mm Hg) 2017-11-17 09:02:00 Mem orial [place] Respitory Rate 2017-11-17 09:02:00 Memori al [place] Heart Rate 2017-11-17 09:02:00 [facility] Julio Cesar Temperature Oral (F) 2017-11-17 09:02:00 98.4 F [facility] [place] Systolic (mm Hg) 2017-11-17 06:22:00 Charles rial Julio Cesar Diastolic (mm Hg) 2017-11-17 06:22:00 Mem orial [place] Respitory Rate 2017-11-17 06:22:00 Memori al [place] Heart Rate 2017-11-17 06:22:00 [facility] Julio Cesar Temperature Oral (F) 2017-11-17 06:22:00 98.8 F [facility] Julio Cesar BMI Calculated 2017-11-17 04:01:00 Memori al [place] Weight 2017-11-17 04:01:00 [facility] [place] Temperature Oral (F) 2017-11-17 04:01:00 98.4 F [facility] [place] Height 2017-11-17 04:01:00 170.18 cm [facility] [place] Respitory Rate 2017-11-17 04:01:00 Memori al [place] Heart Rate 2017-11-17 04:01:00 [facility] [place] Systolic (mm Hg) 2017-11-17 04:01:00 Charles rial Julio Cesar Diastolic (mm Hg) 2017-11-17 04:01:00 Mem orial Julio Cesar Procedures This patient has no known procedures. Plan of Care Planned Activity Planned Date Details Comments Source Future Scheduled 2020-02-25 INFLUENZA VACCINE [place] [facility] 00:00:00 [code = INFLUENZA VACCINE] Future Scheduled 2019 Screening for [facility] Test 00:00:00 malignant neoplasm of cervix (procedure) [code = 577074138] Future Scheduled 2014 CHLAMYDIA SCREENING [place] [facility] 00:00:00 [code = CHLAMYDIA SCREENING] Encounters Start End Encounter Admission Attending Care Care Encounter Source Date/Time Date/Time Type Type Clinicians Facility Department ID 2019-10-12 Inpatient U [facility] [id number] [facility] H 18:43:00 2020-04-10 2020-04-10 Emergency E FB FB [id number] [facility] 15:48:00 15:48:00 2019-09-29 2019-09-29 Emergency E [facility] [id number] [facility] 16:39:00 16:39:00 2019-09-23 2019-09-23 Emergency E [facility] [id number] [facility] 19:02:00 19:02:00 2019-08-26 2019-08-26 Emergency E [facility] [id number] [facility] 16:24:00 16:24:00 2019-04-05 2019-04-05 Abstract [place] [id number] 00:00:00 00:00:00 Milka D S[employer]IOR CLINICAL STUDY MANAGER [id number] REGIONAL [id number] MATERNAL [id number] & CHILD 116 [facility] 2019-03-31 2019-03-31 [facility] [id number] 13:56:28 15:24:21 Milka D SENIOR CLINICAL STUDY MANAGER [id number] Visit REGIONAL [id number] MATERNAL [id number] & CHILD 116 [facility] 2018-10-19 2018-10-21 Outpatient Nisha Bedoya [facility] [id number] 17:53:00 22:17:00 2018-10-19 2018-10-21 Outpatient Nisha Bedoya [facility] [id number] 17:53:00 22:17:00 2017-11-16 2017-11-17 Outpatient Jeremiah [facility] [id number] 23:00:00 04:17:00 Kaden 00 2017-11-16 2017-11-17 Outpatient Jeremiah [facility] [id number] 23:00:00 04:17:00 Kaden 00 Results Test Description Test Time Test Comments Results Result [facility] e Comments HEMATOLOGY 2018-10-21 28.7 [facility] 11:36:00 [place] HEMATOLOGY 2018-10-21 9.7 [facility] 11:36:00 Julio Cesar HEMATOLOGY 2018-10-21 28.7 [facility] 11:36:00 [place] HEMATOLOGY 2018-10-21 9.7 [facility] 11:36:00 [place] BLOOD BANK RESULTS 2018-10-20 Negative Memori al 00:01:00 (10/19/18 7:01 Julio Cesar PM) CHEM PANEL 2018-10-20 183 [facility] 00:01:00 [place] CHEM PANEL 2018-10-20 4.8 [facility] 00:01:00 [place] CHEM PANEL 2018-10-20 125 [facility] 00:01:00 [place] CHEM PANEL 2018-10-20 0.70 [facility] 00:01:00 [place] CHEM PANEL 2018-10-20 14 [facility] 00:01:00 [place] CHEM PANEL 2018-10-20 14 [facility] 00:01:00 [place] HEMATOLOGY 2018-10-20 12.2 [facility] 00:01:00 [place] HEMATOLOGY 2018-10-20 3.81 [facility] 00:01:00 [place] HEMATOLOGY 2018-10-20 11.4 [facility] 00:01:00 [place] HEMATOLOGY 2018-10-20 34.2 [facility] 00:01:00 [place] HEMATOLOGY 2018-10-20 89.9 [facility] 00:01:00 [place] HEMATOLOGY 2018-10-20 13.2 [facility] 00:01:00 [place] HEMATOLOGY 2018-10-20 285 [facility] 00:01:00 [place] HEMATOLOGY 2018-10-20 8.7 [facility] 00:01:00 [place] HEMATOLOGY 2018-10-20 00:01:00 Test Item Value Reference Range Interpretation Comme nts MCH (test code = MCH) 30.0 pg 27.0-31.0 [facility] CvwazyjZRKNTUCBNL3401-35-13 00:01:0033.4[facility]OLOGY 2018-10-20 00:01:0078.7[facility] KqubrbdKSWNBNOEKH5070-65-74 00:01:009.6[facility] FrcpwjbZHSNURMIUS5421-45-59 00:01:0015.2[facility] JuryrhrNYBLKOKHRH0431-76-45 00:01:005.3[facility] XxoewlsAKVKANNOZL9134-05-25 00:01:000.4[facility] [place] UYBFMDJNWJ0162-24-94 00:01:000.4[facility] VsanplcKPJNCBTYAB6591-32-11 00:01:000.6 [facility] BhqczmkMAWXPQECUE7557-73-04 00:01:001.9[facility] HermannIMMUNOLOGY 2018-10-20 00:01:00Non-Reactive *NA*(10/19/18 7:01 PM)[facility] HermannIMMUNOLOGY 2018-10-20 00:01:00Negative *NA*(10/19/18 7:01 PM)[facility] HermannIMMUNOLOGY 2018-10-20 00:01:00Negative *NA*(10/19/18 7:01 PM)[facility] OWJXIPX9657-55-26 00:01:00Negative (10/19/18 7:01 PM)[facility]annCHEM PANEL 2018-10-20 00:01:76436Ovqtkqdt HermannCHEM ZLJBV6558-58-16 00:01:004.8[facility] HermannCHEM XSNGE2534-10-57 00:01:57311Narggdli HermannCHEM RDICT5266-81-85 00:01:000.70[facility]annCHEM YOEOG4486-48-21 00:01:0014[facility]annCHEM LSMDE8504-53-17 00:01:0014[facility] WjremtrJHVSZTMJRG5328-98-45 00:01:0012.2 [facility] FklhdosEUMWTJBIDB2201-94-24 00:01:003.81[facility]annHEMATOLOGY 2018-10-20 00:01:0011.4[facility] OjiwvhkRKPGOZRFPP0747-94-81 00:01:0034.2[facility] OpuvgomPIWNDCEKWA1097-04-91 00:01:0089.9[facility] WyzhdsgIWBNBBETUY9890-77-70 00:01:0013.2[facility] QetbkfvAMDCQFENUZ6476-15-03 00:01:05414Xlsfbpws [place] YDQFNKWVIU6352-26-69 00:01:008.7[facility] EwloxhpAKUFQDXKOV4281-48-57 00:01:00 Test Item Value Reference Range Interpretation Comments MCH (test code = MCH) 30.0 pg 27.0-31.0 [facility] KqouuneVXDOVFNNGI3092-83-57 00:01:0033.4[facility]annHEMATOLOGY 2018-10-20 00:01:0078.7[facility] TdwolzuTOPMHQCBUB2746-53-35 00:01:009.6[facility] TptvngmMTIVXBHUXB5171-56-52 00:01:0015.2[facility] KoxmdqcJBHJHNHIUA9331-83-01 00:01:005.3[facility] PfixqwxQZQAETOUHJ1869-74-70 00:01:000.4[facility] JXUABJSYHO1118-03-92 00:01:000.4[facility] ZnakjenMORPDSUHSU7610-48-39 00:01:000.6 [facility] TqmnswmZUIHUABYPQ8283-32-67 00:01:001.9[facility] HermannIMMUNOLOGY 2018-10-20 00:01:00Non-Reactive *NA*(10/19/18 7:01 PM)[facility]annIMMUNOLOGY 2018-10-20 00:01:00Negative *NA*(10/19/18 7:01 PM)[facility]annIMMUNOLOGY 2018-10-20 00:01:00Negative *NA*(10/19/18 7:01 PM)[facility] STOOL 2017-11-17 08:24:15Moderate *ABN*(11/17/17 3:24 AM)[facility] QIVRL9817-74-03 08:24:15Negative (11/17/17 3:24 AM)[facility] TRISK2005-87-02 08:24:15Trace *ABN*(11/17/17 3:24 AM)[facility] MTZNT7367-60-92 08:24:150.2[facility] LBALH0653-85-29 08:24:15 Negative *NA*(11/17/17 3:24 AM)[facility] CZAOF4910-94-88 08:24:15 Negative (11/17/17 3:24 AM)[facility] WFZSL1160-15-45 08:24:15 Trace *ABN*(11/17/17 3:24 AM)[facility] VXCVG2952-45-93 08:24:15 Negative (11/17/17 3:24 AM)[facility] GYVMB2423-33-51 08:24:15 Test Item Value Reference Range Interpretation Comments UA pH (test code = UA pH) 8.0 1 5.0-8.0 [facility] MBUDT1928-67-00 08:24:15Slight Cloudy (11/17/17 3:24 AM)[facility] TIDLH3306-96-34 08:24:15Yellow *NA*(11/17/17 3:24 AM)[facility] ZMTQI6398-14-10 08:24:15 Test Item Value Reference Range Interpretation Comments UA Spec Grav (test code = UA Spec 1.010 1 Grav) [facility] WQCPB0724-24-79 08:24:15Moderate *ABN*(11/17/17 3:24 AM)[facility] SJYAN1369-06-46 08:24:15Negative (11/17/17 3:24 AM) [facility] FHPMK3566-24-88 08:24:15Trace *ABN*(11/17/17 3:24 AM) [facility] VEMYZ5638-94-19 08:24:150.2[facility] YINGJ7543-17-28 08:24:15Negative *NA*(11/17/17 3:24 AM)[facility] SMKVT3157-98-70 08:24:15Negative (11/17/17 3:24 AM)[facility] TQOQN4571-59-71 08:24:15Trace *ABN*(11/17/17 3:24 AM)[facility] YZAMZ5277-43-93 08:24:15Negative (11/17/17 3:24 AM)[facility] WLRND6861-43-11 08:24:15 Test Item Value Reference Range Interpretation Comments UA pH (test code = UA pH) 8.0 1 5.0-8.0 [facility] HPRHQ4744-50-09 08:24:15Slight Cloudy (11/17/17 3:24 AM)[facility] BFYFN9740-71-13 08:24:15Yellow *NA*(11/17/17 3:24 AM)[facility] ALAZE3899-42-76 08:24:15 Test Item Value Reference Range Interpretation Comments UA Spec Grav (test code = UA Spec 1.010 1 Grav) [facility] DJUEHBW3467-70-63 04:59:00Negative (11/16/17 11:59 PM) [facility] ZDJQLFI5040-50-60 04:59:00Negative (11/16/17 11:59 PM) [facility] QdqtfitCLSNAUVQJSQD8073-58-51 04:24:0013.7[facility] HermannELECTROLYTES 2017-11-17 04:24:0077[facility] BrfmcgaDQUXJYRJJZKL1053-85-81 04:24:0028[facility] BgqykypAFPENEJMFREY2244-52-34 04:24:0010.3[facility] ZyipoegMMBUHWIIVOYY0059-43-39 04:24:77574Xnvwfnny WothtutDOBLEAZOBVXE2923-68-72 04:24:66593Vjcxgqgs [place] NYJHDRGRYAAP5987-55-10 04:24:90453Jiqvomzt QkesacbSOMDRURANPEY4453-06-03 04:24:0011[facility] HbakoocXEXOUBFXRIDH1195-54-93 04:24:001.05[facility] WWNJHEMUWYAR5729-56-19 04:24:003.7[facility] SzqqfzyVIFYVQTRBUMDX3583-92-20 04:24:00<1[facility] CowirfdSFGJGJPVXG1947-56-94 04:24:78311Swckisus [place] XGOAQZNGGW6048-26-28 04:24:008.7[facility] HszgkbeVJRIRKNTYR2104-74-77 04:24:009.7 [facility] VuvwyclXWWHMGNVRA2465-48-36 04:24:004.51[facility] HermannHEMATOLOGY 2017-11-17 04:24:0014.5[facility] HoyopgkHYVTLHELKS3207-51-32 04:24:0042.6[facility] ZutqltjATBXQKKEZX4104-54-49 04:24:0094.4[facility] PcywivoJQZPOASDPZ7885-70-09 04:24:0012.8[facility] TokstqsKBNVQRAMPS9166-43-09 04:24:0034.0[facility] HFILZOKBZR2632-34-39 04:24:00 Test Item Value Reference Range Interpretation Comments MCH (test code = MCH) 32.1 pg 27.0-31.0 [facility] KlzrsehZRBSUACVUH3240-08-63 04:24:000.6[facility] HermannHEMATOLOGY 2017-11-17 04:24:000.1[facility] CvceninJOYIUJSZBU5520-96-70 04:24:000.4[facility] OycucfsLVFXYEPLUC7877-79-66 04:24:000.6[facility] SnhiqbcBGHIHYJBUK7885-20-27 04:24:006.8[facility] HulubmwDJBOTIIREM2782-75-50 04:24:0023.3[facility] RIUYURDZOJ7386-55-05 04:24:006.3[facility] KrfykwpUSEPXRIWZH2127-77-54 04:24:002.3 [facility] SxlxwbeVQLFGORLNJ3592-13-59 04:24:0069.4[facility] HermannELECTROLYTES 2017-11-17 04:24:0013.7[facility] PyffhfmGSUBIYIKOGUN8157-86-99 04:24:0077[facility] AvpatceDTOVDRRGDTZT7369-27-64 04:24:0028[facility] LmrpvqjWYGHFDFAKAGO5646-84-04 04:24:0010.3[facility] SijyzbsNDUGIFBVZIZT7904-05-13 04:24:25688Zaoiwhaw [facility] RIXPVIOSOOLE7059-40-91 04:24:98897Mfcocwck IptdxwaCMQDTVXYLGVF4493-10-87 04:24:43233Bhkaghzx YsmrnvvPZOWTJQVQBRC5604-38-19 04:24:0011[facility] ARXZDXSXCPBH5763-36-02 04:24:001.05[facility] ByeamlyYZGUNOACYBVM8734-77-97 04:24:003.7[facility] EiqyztzNATTPVEUXXZZX1051-99-49 04:24:00<1[facility] [place] WZSTNXOUKU9647-50-42 04:24:14664Ttjtvjnh CjfibweIXVBPBTXGC3020-56-42 04:24:008.7 [facility] YlkgjpcPMEPNWXMTD6012-30-36 04:24:009.7[facility] HermannHEMATOLOGY 2017-11-17 04:24:004.51[facility] PiuodqfOIVWTECFRN1053-71-55 04:24:0014.5[facility] UuolhklVHEXTNPNGV9588-49-49 04:24:0042.6[facility] XxvcvwdRFTPNSTVYS7032-29-33 04:24:0094.4[facility] NkjebjtRATQUHIKBQ6510-24-87 04:24:0012.8[facility] [place] DGEVQYHQDD3457-19-64 04:24:0034.0[facility] UfmswhwCSMNLHQILV6223-35-13 04:24:00 Test Item Value Reference Range Interpretation Comments MCH (test code = MCH) 32.1 pg 27.0-31.0 [facility] XefbgdoXZNMLXAVFJ0061-78-43 04:24:000.6[facility]annHEMATOLOGY 2017-11-17 04:24:000.1[facility] BwrxcbpZIDAGDHQSN4746-18-90 04:24:000.4[facility] FjfupugVUYKNCKWRR3917-83-36 04:24:000.6[facility] XpfeyzeXZNBIYCTVQ7666-35-36 04:24:006.8[facility] RusdhugJBVOHWHEHV4242-09-32 04:24:0023.3[facility] [place] IDZLXPNTLO8398-27-00 04:24:006.3[facility] LjjnynoKEUHFCRMAJ3258-34-26 04:24:002.3 [facility] WloyqgjCJBCKZSKPP8268-07-57 04:24:0069.4[facility]
[2020-07-01] MEDS ORDERED: DIPHENHYDRAMINE 50 MG/ML VIAL ONE (18:45)
[2020-07-01] MEDS ORDERED: NA CHLORIDE 0.9% 1,000 ML ONE (18:45)
[2020-07-01] MEDS ORDERED: KETOROLAC 30 MG/ML INJ ONE (18:45)
[2020-07-01] MEDS ORDERED: METOCLOPRAMIDE 10 MG/2mL INJ ONE (18:45)
[2020-07-01 18:52] LABS: Absolute Lymphocytes (CBC) 1.9 K/uL (0.7-4.9); Basophils % 0.5 % (0-1.3); Hematocrit 36.4 % (36.0-45.0); Lymphocytes % 31.4 % (15.3-44.8); MPV 9.2 fL (7.6-11.3)
[2020-07-01 19:10] LABS: Protime INR 1.03
[2020-07-01 19:14] LABS: ALT/SGPT 48 U/L (12-78); AST/SGOT 21 U/L (15-37); Albumin 4.3 g/dL (3.4-5.0); Alkaline Phosphatase 111 U/L (45-117); BUN Blood Urea Nitrogen 8 mg/dL (7-18); Bicarbonate 28 mmol/L (21-32); Bilirubin Direct 0.1 mg/dL (0-0.2); Bilirubin Total 0.7 mg/dL (0.2-1.0); Glucose Level 86 mg/dL (74-106); NT PRO-BNP 15 pg/mL (<125); Potassium 4.1 mmol/L (3.5-5.1); Protein, Total 8.3 g/dL (6.4-8.2); Sodium Level 141 mmol/L (136-145); Troponin (Emerg Dept Use Only) < 0.02 ng/mL (0.0-0.045)
--- NOTE | 2020-07-01 19:56 | EDPHYS ---
Physician Documentation [facility] Name: Graham Aguilar Age: 20 yrs Sex: Female : 2000 Arrival Date: 07/01/2020 Time: 16:15 Bed 15 Private MD: ED Physician Paresh Ballard HPI: 07/01 18:29 This 20 yrs old Female presents to ER via Ambulatory with complaints of pm1 Headache, Chest Pain, Breathing Difficulty. 18:29 The patient or guardian reports chest pain that is located primarily in the mid-sternal pm1 area. The pain does not radiate. Associated signs and symptoms: Pertinent positives: cough, headache, shortness of breath, Pertinent negatives: nausea, palpitations, vomiting. The chest pain is described as sharp. Duration: The patient or guardian reports multiple episodes. Modifying factors: the symptoms are aggravated by cough, deep breath, palpation of area. Patient with history of atypical headaches and her headache feels the same as her previous headaches for the past 4-5 years. Patient also reports pain to her right index finger that started today after her son stepped on her finger. 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 - Social history:: Smoking status: Patient denies any tobacco usage or history of. ROS: 18:29 Constitutional: Negative for fever, chills, and weight loss, Neck: Negative for injury, pm1 pain, and swelling. 18:29 Abdomen/GI: Negative for abdominal pain, nausea, vomiting, diarrhea, and constipation, Back: Negative for injury and pain. 18:29 Cardiovascular: Positive for chest pain, of the mid-sternal area, Negative for edema, orthopnea, palpitations. 18:29 Respiratory: Positive for cough, shortness of breath. 18:29 MS/extremity: Positive for pain, of the dorsal aspect of middle phalanx of right index finger, Negative for decreased range of motion, deformity. 18:29 Skin: Positive for abrasion(s), of the dorsal aspect of middle phalanx of right index finger. 18:29 Neuro: Positive for headache, Negative for numbness, tingling, weakness. Exam: 18:29 Constitutional: This is a well developed, well nourished patient who is awake, alert, pm1 and in no acute distress. Head/Face: Normocephalic, atraumatic. Neck: Trachea midline, no thyromegaly or masses palpated, and no cervical lymphadenopathy. Supple, full range of motion without nuchal rigidity, or vertebral point tenderness. No Meningismus. 18:29 Back: No spinal tenderness. No costovertebral tenderness. Full range of motion. 18:29 Chest/axilla: Inspection: normal, Palpation: tenderness, of the mid-sternal area, that totally reproduces the patient's complaints. 18:29 Cardiovascular: Rate: normal, Rhythm: regular, Pulses: no pulse deficits are appreciated, Edema: is not appreciated. 18:29 Respiratory: Exam negative for acute changes, respiratory distress, shortness of breath, Breath sounds: are clear throughout. 18:29 Abdomen/GI: Inspection: abdomen appears normal, Palpation: abdomen is soft and non-tender, in all quadrants. 18:29 Musculoskeletal/extremity: Extremities: grossly normal except: noted in the dorsal aspect of middle phalanx of right index finger: swelling, tenderness, There is no evidence of decreased ROM, deformity, ROM: intact in all extremities. 18:29 Skin: Appearance: normal except for affected area, injury, abrasion(s), small abrasion noted, of the dorsal aspect of middle phalanx of right index finger. 18:29 Neuro: Orientation: is normal, Mentation: is normal, Cranial nerves: CN II- XII are normal as tested, Motor: moves all fours, strength is normal, strength is 5/5 in all extremities. Vital Signs: 16:37 BP 127 / 67; Pulse 91; Resp 18 S; Temp 98.7(TE); Pulse Ox 100% on R/A; Weight 90.72 kg ca1 (R); Height 5 ft. 7 in. (170.18 cm) (R); Pain 8/10; 18:30 BP 126 / 66; Pulse 88; Resp 16; Pulse Ox 99% on R/A; hb 21:00 BP 113 / 76; Pulse 79; Resp 16; Pulse Ox 100% on R/A; jb4 16:37 Body Mass Index 31.32 (90.72 kg, 170.18 cm) ca1 MDM: 18:17 Patient medically screened. pm1 19:53 Data reviewed: vital signs. Data interpreted: Pulse oximetry: on room air is 99 %. pm1 Interpretation: normal. Counseling: I had a detailed discussion with the patient and/or guardian regarding: the historical points, exam findings, and any diagnostic results supporting the discharge/admit diagnosis, lab results, radiology results, the need for outpatient follow up, to return to the emergency department if symptoms worsen or persist or if there are any questions or concerns that arise at home. 19:53 ED course: Patient refused flu and covid tests. pm1 1206 18:25 Order name: Basic Metabolic Panel; Complete Time: 19:15 pm1 07/01 18:25 Order name: CBC with Diff; Complete Time: 19:06 pm1 07/01 18:25 Order name: LFT's; Complete Time: 19:15 pm1 07/01 18:25 Order name: Magnesium; Complete Time: 19:15 pm1 07/01 18:25 Order name: NT PRO-BNP; Complete Time: 19:15 pm1 07/01 18:25 Order name: PT-INR; Complete Time: 19:15 pm1 07/01 18:25 Order name: Troponin (emerg Dept Use Only); Complete Time: 19:15 pm1 07/01 18:25 Order name: XRAY Chest (1 view); Complete Time: 20:31 pm1 07/01 19:11 Order name: Hand Right 3 View XRAY; Complete Time: 20:31 pm1 07/01 18:25 Order name: EKG; Complete Time: 18:26 pm1 07/01 18:25 Order name: Cardiac monitoring; Complete Time: 18:49 pm1 07/01 18:25 Order name: EKG - Nurse/Tech; Complete Time: 18:49 pm1 07/01 18:25 Order name: IV Saline Lock; Complete Time: 18:49 pm1 07/01 18:25 Order name: Labs collected and sent; Complete Time: 18:50 pm1 07/01 18:25 Order name: O2 Per Protocol; Complete Time: 18:50 pm1 07/01 18:25 Order name: O2 Sat Monitoring; Complete Time: 18:50 pm1 Administered Medications: 18:44 Drug: Reglan 10 mg Route: IVP; Site: right antecubital; hb 19:00 Follow up: Response: No adverse reaction jb4 18:44 Drug: TORadol 30 mg Route: IVP; Site: right antecubital; hb 19:00 Follow up: Response: No adverse reaction; Pain is decreased jb4 18:44 Drug: Benadryl 25 mg Route: IVP; Site: right antecubital; hb 19:00 Follow up: Response: No adverse reaction jb4 18:44 Drug: NS 0.9% 1000 ml Route: IV; Rate: 1000 ml; Site: right antecubital; hb 19:45 Follow up: Response: No adverse reaction; IV Status: Completed infusion; IV Intake: jb4 1000ml 21:03 Drug: Albuterol 2.5 mg Route: Inhalation; jb4 21:20 Follow up: Response: No adverse reaction jb4 Disposition: 07/02 09:34 Co-signature as Attending Physician, Paresh Ballard MD. rn Disposition: 07/01/20 19:54 Discharged to Home. Impression: Chest pain, unspecified, Acute upper respiratory infection, unspecified, Headache, Contusion of right index finger without damage to nail. - Condition is Stable. - Discharge Instructions: Nonspecific Chest Pain, Hand Contusion, General Headache Without Cause, Upper Respiratory Infection, Adult. - Prescriptions for Fiorinal 50- 325-40 mg Oral Capsule - take 1 capsule by ORAL route every 4 hours As needed - not to exceed 6 capsules per day; 20 capsule. Medrol (Brayd) 4 mg Oral Tablets, Dose Pack - take 1 tablet by ORAL route as directed - follow package instructions; 1 packet. Albuterol Sulfate 90 mcg/actuation - inhale 1-2 puff by INHALATION route every 4-6 hours; 1 Inhaler. - Medication Reconciliation Form, Thank You Letter, Antibiotic Education, Prescription Opioid Use form. - Follow up: Emergency Department; When: As needed; Reason: Worsening of condition. Follow up: Private Physician; When: 2 - 3 days; Reason: Recheck today's complaints, Continuance of care, Re-evaluation by your physician. - Problem is new. - Symptoms have improved. Signatures: Dispatcher [employer] EDParesh Acevedo MD MD rn Marinas, Patrick, NP CIRCUIT MANAGER pm1 Paula Lim, RN RN Cristobal Blackman, RN RN jb4 Alis Rucker RN RN ca1 Corrections: (The following items were deleted from the chart) 07/01 20:17 19:54 07/01/2020 19:54 Discharged to Home. Impression: Chest pain, unspecified; Acute pm1 upper respiratory infection, unspecified; Headache. Condition is Stable. Forms are Medication Reconciliation Form, Thank You Letter, Antibiotic Education, Prescription Opioid Use. Follow up: Emergency Department; When: As needed; Reason: Worsening of condition. Follow up: Private Physician; When: 2 - 3 days; Reason: Recheck today's complaints, Continuance of care, Re-evaluation by your physician. Problem is new. Symptoms have improved. pm1 20:18 20:17 07/01/2020 19:54 Discharged to Home. Impression: Chest pain, unspecified; Acute pm1 upper respiratory infection, unspecified; Headache; Contusion of left index finger without damage to nail. Condition is Stable. Discharge Instructions: Nonspecific Chest Pain, General Headache Without Cause, Upper Respiratory Infection, Adult. Prescriptions for Fiorinal 50-325-40 mg Oral Capsule - take 1 capsule by ORAL route every 4 hours As needed - not to exceed 6 capsules per day; 20 capsule, Medrol (Brady) 4 mg Oral Tablets, Dose Pack - take 1 tablet by ORAL route as directed - follow package instructions; 1 packet, Albuterol Sulfate 90 mcg/actuation - inhale 1-2 puff by INHALATION route every 4-6 hours; 1 Inhaler. and Forms are Medication Reconciliation Form, Thank You Letter, Antibiotic Education, Prescription Opioid Use. Follow up: Emergency Department; When: As needed; Reason: Worsening of condition. Follow up: Private Physician; When: 2 - 3 days; Reason: Recheck today's complaints, Continuance of care, Re-evaluation by your physician. Problem is new. Symptoms have improved. pm1 20:18 18:29 Patient also reports pain to her left index finger that started today after her pm1 son stepped on her finger. pm1 21:31 20:18 07/01/2020 19:54 Discharged to Home. Impression: Chest pain, unspecified; Acute jb4 upper respiratory infection, unspecified; Headache; Contusion of right index finger without damage to nail. Condition is Stable. Discharge Instructions: Nonspecific Chest Pain, General Headache Without Cause, Upper Respiratory Infection, Adult, Hand Contusion. Prescriptions for Fiorinal 50-325-40 mg Oral Capsule - take 1 capsule by ORAL route every 4 hours As needed - not to exceed 6 capsules per day; 20 capsule, Medrol (Brady) 4 mg Oral Tablets, Dose Pack - take 1 tablet by ORAL route as directed - follow package instructions; 1 packet, Albuterol Sulfate 90 mcg/actuation - inhale 1-2 puff by INHALATION route every 4-6 hours; 1 Inhaler. and Forms are Medication Reconciliation Form, Thank You Letter, Antibiotic Education, Prescription Opioid Use. Follow up: Emergency Department; When: As needed; Reason: Worsening of condition. Follow up: Private Physician; When: 2 - 3 days; Reason: Recheck today's complaints, Continuance of care, Re-evaluation by your physician. Problem is new. Symptoms have improved. pm1
--- NOTE | 2020-07-01 19:56 | ER ---
Nurse's Notes [facility] Name: Graham Aguilar Age: 20 yrs Sex: Female : 2000 Arrival Date: 07/01/2020 Time: 16:15 Bed 15 Private MD: Diagnosis: Chest pain, unspecified;Acute upper respiratory infection, unspecified;Headache;Contusion of right index finger without damage to nail Presentation: 07/01 16:37 Chief complaint: Patient states: I have been having headache and it's been harder and ca1 harder for me to breathe since Thursday. I have chest pains and I feel nauseous. I have body aches. I also think my R pointing finger is broken, my son stepped on it this morning at 0200. Coronavirus screen: Client denies travel out of the [place] in the last 14 days. difficulty breathing, headache, muscle pain, nausea, Client presents with at least one sign or symptom that may indicate coronavirus-19. Standard/surgical mask placed on the client. Provider contacted for isolation considerations. Ebola Screen: Patient negative for fever greater than or equal to 101.5 degrees Fahrenheit, and additional compatible Ebola Virus Disease symptoms Patient denies exposure to infectious person. Patient denies travel to an Ebola-affected area in the 21 days before illness onset. No symptoms or risks identified at this time. Initial Sepsis Screen: Does the patient meet any 2 criteria? No. Patient's initial sepsis screen is negative. Does the patient have a suspected source of infection? No. Patient's initial sepsis screen is negative. Risk Assessment: Do you want to hurt yourself or someone else? Patient reports no desire to harm self or others. Onset of symptoms was July 01, 2020. 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 - Social history:: Smoking status: Patient denies any tobacco usage or history of. Screenin:47 Abuse screen: Denies threats or abuse. Denies injuries from another. Nutritional hb screening: No deficits noted. Tuberculosis screening: No symptoms or risk factors identified. Fall Risk None identified. Assessment: 18:47 General: Appears in no apparent distress. Behavior is calm, cooperative. Pain: Pain hb currently is 9 out of 10 on a pain scale. Neuro: Level of Consciousness is awake, alert, obeys commands, Oriented to person, place, time, situation. Cardiovascular: Capillary refill < 3 seconds Patient's skin is warm and dry. Respiratory: Reports cough that is non-productive, Respiratory effort is even, unlabored, Respiratory pattern is regular, symmetrical. GI: Reports nausea. : No signs and/or symptoms were reported regarding the genitourinary system. EENT: No signs and/or symptoms were reported regarding the EENT system. Derm: Skin is pink, warm \\T\\ dry. Musculoskeletal: No signs and/or symptoms reported regarding the musculoskeletal system. 19:00 Reassessment: Patient appears in no apparent distress at this time. Patient and/or jb4 family updated on plan of care and expected duration. Pain level reassessed. Patient is alert, oriented x 3, equal unlabored respirations, skin warm/dry/pink. 20:00 Reassessment: Patient appears in no apparent distress at this time. Patient and/or jb4 family updated on plan of care and expected duration. Pain level reassessed. Patient is alert, oriented x 3, equal unlabored respirations, skin warm/dry/pink. 21:00 Reassessment: Patient appears in no apparent distress at this time. Patient and/or jb4 family updated on plan of care and expected duration. Pain level reassessed. Patient is alert, oriented x 3, equal unlabored respirations, skin warm/dry/pink. Patient states feeling better. Vital Signs: 16:37 BP 127 / 67; Pulse 91; Resp 18 S; Temp 98.7(TE); Pulse Ox 100% on R/A; Weight 90.72 kg ca1 (R); Height 5 ft. 7 in. (170.18 cm) (R); Pain 8/10; 18:30 BP 126 / 66; Pulse 88; Resp 16; Pulse Ox 99% on R/A; hb 21:00 BP 113 / 76; Pulse 79; Resp 16; Pulse Ox 100% on R/A; jb4 16:37 Body Mass Index 31.32 (90.72 kg, 170.18 cm) ca1 ED Course: 16:15 Patient arrived in ED. as 16:41 Triage completed. ca1 16:41 Arm band placed on right wrist. ca1 18:15 Marshall Christensen NP is PHCP. pm1 18:15 Paresh Ballard MD is Attending Physician. pm1 18:22 Angela Bush, RN is Primary Nurse. ec1 18:42 Inserted saline lock: 20 gauge in right antecubital area, using aseptic technique. hb Blood collected. 18:47 Patient has correct armband on for positive identification. Bed in low position. Call hb light in reach. Side rails up X 1. 19:28 XRAY Chest (1 view) In Process Unspecified. EDMS 19:28 Hand Right 3 View XRAY In Process Unspecified. EDMS 20:29 Primary Nurse role handed off by Angela Bush RN mw2 20:47 Cristobal Blackman, RN is Primary Nurse. jb4 21:20 No provider procedures requiring assistance completed. IV discontinued, intact, jb4 bleeding controlled, No redness/swelling at site. Administered Medications: 18:44 Drug: Reglan 10 mg Route: IVP; Site: right antecubital; hb 19:00 Follow up: Response: No adverse reaction jb4 18:44 Drug: TORadol 30 mg Route: IVP; Site: right antecubital; hb 19:00 Follow up: Response: No adverse reaction; Pain is decreased jb4 18:44 Drug: Benadryl 25 mg Route: IVP; Site: right antecubital; hb 19:00 Follow up: Response: No adverse reaction jb4 18:44 Drug: NS 0.9% 1000 ml Route: IV; Rate: 1000 ml; Site: right antecubital; hb 19:45 Follow up: Response: No adverse reaction; IV Status: Completed infusion; IV Intake: jb4 1000ml 21:03 Drug: Albuterol 2.5 mg Route: Inhalation; jb4 21:20 Follow up: Response: No adverse reaction jb4 Intake: 19:45 IV: 1000ml; Total: 1000ml. jb4 Outcome: 19:54 Discharge ordered by . pm1 21:20 Discharged to home ambulatory. jb4 21:20 Condition: stable 21:20 Discharge instructions given to patient, Instructed on discharge instructions, follow up and referral plans. medication usage, Demonstrated understanding of instructions, follow-up care, medications, Prescriptions given X 3. 21:31 Patient left the ED. jb4 Signatures: Dispatcher [employer] EDMayda Conteh Patrick, [employer] EVENT COORDINATOR pm1 Paula Lim, RN RN hb Cristobal Blackman RN RN jb4 Kaylen Soto mw2 Alis Rucker RN RN ca1 Angela Bush RN RN ec1
--- NOTE | 2020-07-01 20:29 | RAD REPORT ---
EXAM DESCRIPTION: RAD - Chest Single View - 07/01/2020 7:28 pm CLINICAL HISTORY: CHEST PAIN Chest pain. COMPARISON: No comparisons FINDINGS: Portable technique limits examination quality. The lungs are grossly clear. The heart is normal in size. No displaced fractures. IMPRESSION: No acute intrathoracic process suspected.
--- NOTE | 2020-07-01 20:30 | RAD REPORT ---
EXAM DESCRIPTION: RAD - Hand Right 3 View - 07/01/2020 7:28 pm CLINICAL HISTORY: PAIN COMPARISON: No comparisons FINDINGS: No acute fracture or dislocation is seen.
[2020-07-01] MEDS ORDERED: ALBUTEROL 2.5 MG/3 ML NEB SOL ONE (21:11)
[2020-07-05 14:51] VITALS: TEMP 98.7
[2020-07-05 14:54] VITALS: BP 113/76; O2SAT 100
== END 2020-07-01 21:31 | disposition home or self-care (01) ==
LOC: ER 16:13
DX: J06.9 Acute upper respiratory infection, unspecified (principal); R51.9 Headache, unspecified; S60.021A Contusion of right index finger without damage to nail, initial encounter
CPT/HCPCS: 36415; 71045; 80048; 80076; 83735; 83880; 84484; 85025; 85610; 93005; 96361; 96374; 96375; 99284; J1200; J2765; J7030

== ENCOUNTER 2020-07-25 05:53 | Emergency (ER) | payer OTHER ==
--- OUTSIDE RECORDS SUMMARY | 2020-07-25 05:55 | XMS REPORT | Clinical Summary ---
:2000 Author Organization [facility] Address [address] [place] [id number] Care Team Providers Name Role Phone Asked, No Pcp Primary Care Provider Unavailable Allergies Active Allergy Reactions Severity Noted Date Comments Ceftriaxone Hives High 04/11/2019 Medications Medication Sig Dispensed Refills Start Date End Date Status Take 1 tablet by 0 Act kyra vit,[id number] mouth daily. 29 mg iron- 1 mg [...] Date Last Done Comments CHLAMYDIA SCREENING 2014 COVID-19 VACCINE (#1) 2014 CERVICAL CANCER SCREENING 2019 INFLUENZA VACCINE 02/25/2020 Results Not on fileafter 07/25/2019 Advance Directives For more information, please contact: [phone] Type Date Recorded Patient Funeral Attendant Explanati on Advance Directives, Living Will and Medical Power of C++ Professor
--- OUTSIDE RECORDS SUMMARY | 2020-07-25 05:55 | XMS REPORT | Continuity of Care Document ---
:2000 Author Organization [facility] Crary Information [place] Care Team Providers Name Role Phone [facility] Information Exchange Unavailable Un available Problems Problem Status Onset Classification Date Comments Sourc e Date Reported Patient currently Active Problem 10/23/2018 [facility] Medical (finding) Center INDUCTION Active [address] PYELONEPHRITIS, Active [facility] brad 12 WKS GESTATION 018 [facility] PYELONEPHRITIS Active [address] LABOR Active [address] Calculus of 11/20/2017 Alistair s kidney [address] [place] [address] ABDOMINAL PAIN Active [address] Chlamydia Resolved Problem 10/23/2018 [facility] trachomatis [address] [place] [address] infection in Center (disorder) Urinary tract Resolved Problem 10/23/2018 [facility] infection in [address] [place] [address] Center (disorder) Refractory Active Problem 10/23/2018 Data migrated [place] migraine without 016 from [employer] Medical aura (disorder) 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 Graham has common migraine without [...] intractable migraine. Patient encounter Resolved Problem 10/23/2018 [facility] status (finding) 998 [facility] Asthma (disorder) Resolved Problem 11/20/2017 [facility] Headache Resolved Problem 11/20/2017 [facility] ACUTE Active [facility] PYELONEPHRITIS Medic al Center Medications Medication Details Route Status Patient Ordering Order Source Instructions Provider Date Docusate Sodium 100 mg = 1 cap, Active [place] 100 MG Oral PO, BID, PRN 2019 Medical Capsule Constipation, # Center 60 cap, 0 Refill(s), Pharmacy: [facility] [id number] ibuprofen 600 mg 600 mg = 1 tab, Active [place] oral tablet PO, Q6H, PRN 2019 Medical Other -See Center Comment, # 60 tab, 0 Refill(s), Pharmacy: [facility] [id number] 1 tab, Route: Inactive [place] Multivitamins oral PO, Drug Form: 2019 Medical tablet TAB, Dosing Center Weight 100.455, kg, Daily, Start date: 10/21/18 9:00:00 CDT, Duration: 30 day, Stop date: 11/19/18 9:00:00 CDT M-M-R II Notes: (Same as: No Longer [facility] brad M-M-R II) Active 2019 Medical (buzahbr-xfcke-c Center ubella virus vaccine 0.5 ml INJ VL) WASTE: F/P - Red; E -Red GIVE PRIOR TO DISCHARGE Ibuprofen Notes: (Same as: No Longer [facility] Motrin) "Do Not Active 2019 Medical Crush" Take Center with food. Bisacodyl Notes: (Same As: No Longer [facility] Dulcolax, Active 2019 Medical Correctol) (Do Center Not Crush) "Do Not Crush" Docusate Notes: (Same as: No Longer [facility] Colace) (Do Not Active 2019 Medical Crush) Center zolpidem Notes: (Same As: No Longer [facility] Ambien) Active 2019 Medical Center Methylergonovine Notes: (Same No Longer [facility] as:Methergine) Active 2019 Medical Center lanolin topical 1 appl, Route: No Longer [facility] TOP, PRN, Drug Active 2019 Medical form: OINT, PRN Center Other -See Comment, Start date: 10/20/18 15:35:00 CDT, Duration: 30 day, Stop date: 11/19/18 15:34:00 CDT Benzocaine 200 Notes: (Same As: No Longer [facility] MG/ML Topical Dermoplast) Active 2019 Medica l [place] [Dermoplast] WASTE: Aerosol - Center Return to [...] (Same as: [place] Cervidil) 2019 [facility] Misoprostol Notes: (Same [place] Long[place] as:Cytotec) Active 2019 Medical Take with food Center Famotidine Notes: (Same as: No Longer [facility] Pepcid) Can be Active 2019 Medical dilute in 5-10cc Center NS IVP: Slow IV push over at least 2 minutes. Carboprost Notes: (Same As: No Longer [facility] Hemabate) Active 2019 [facility] Citric Acid / Notes: (Same As: No Longer [facility] sodium citrate Bicitra, Active 2018 [facility] Cytra-2) [facility] citrate-citric acid (500-334 mg/5 mL): 1 mL contains sodium 1 mEq/mL and bicarbonate 1 mEq/mL Methylergonovine Notes: (Same No Longer [facility] as:Methergine) Active 2019 [facility] Acetaminophen 325 Notes: (Same as: No Longer [facility] MG / Hydrocodone [place] 325/5) Do Active 2019 [facility] Bitartrate 5 MG not exceed Cente r Oral Tablet 4gm/day of acetaminophen. Lidocaine Notes: No Longer [facility] Hydrochloride 10 Preservative Active 2018 Ri dical MG/ML Injectable free. (Same as: [place] Solution Xylocaine MPF) Ondansetron Notes: (Same as: No Longer [facility] Zofran) Active 2019 Medical MEDICATION WASTE Center Product Size: 4 mg Product Wasted: ___ mg Terbutaline Notes: DO NOT No Longer [facility] USE IN COMMISSIONING EDITOR Active 2019 Medical AREA (Same Center As: [place]) Butorphanol Notes: (Same As: No Longer [facility] Stadol) Active 2019 Medical MEDICATION WASTE Center [...] 0.0014 MEQ/ML / ml/hr, Infuse Active 2018 Ri dical Potassium Chloride Over: 1 hr, C [...] CDT Sodium Chloride 1,000 mL, 1000 Inactive 11/17[facility] Servando 0.9% (Bolus) IV ml/hr, Infuse [address] [place] [address] Over: 1 hr, [place] Route: IV, 1,000, Drug form: INJ, ONCE, Priority: STAT, Dosing Weight 77.273 kg, Start date: 11/17/17 1:25:00 CDT, Stop date: 11/17/17 1:25:00 CDT Phenergan Notes: Do not Inactive 11/17[facility] [place] give IV push. 2018 Medical (Same as: [place] Phenergan) 30 ML Morphine Notes: (Same No Longer [place] Sulfate 5 MG/ML as:MORPhine Active 2018 [facility] Injection Sulfate) [place] Ondansetron 4 mg, Route: Inactive 11/17[facility] as IVP, Drug form: 2018 Medical INJ, ONCE, Center Dosing Weight 77.273, kg, Priority: STAT, Start date: 11/16/17 23:16:00 CDT, Stop date: 11/16/17 23:16:00 CDT Morphine 4 mg, Route: Inactive 11/17[facility] Servando IVP, ONCE, 2018 Medical Dosing Weight Center 77.273, kg, Priority: STAT, Start date: 11/16/17 23:16:00 CDT, Stop date: 11/16/17 23:16:00 CDT Allergies, Adverse Reactions, Alerts Substance Category Reaction Severity Reaction Status Date Comments S ource type Reported acetaminoph Assertion Hallucinat Drug Active Data [facility] en/butalbit ions/Chest allergy 6 migrated Medical al/caffeine Pain, from [facility] er <sup>1</sup Hallucinat eClinical > ions/Chest Works on Pain 08/11/16. Originally documented as Fioricet. Reaction: Hallucinati ons/Chest Pain Immunizations Immunization Date Given Site Status Last Comments Source Updated diphtheria/pertus 10/21/2018 Left completed [place] Al sis, acel/tetanus deltoid Ri dical adult [place] influenza virus 04/15/2018 Not Given [facility] vaccine, Medical inactivated<sup>1 Ce nter </sup> Results Order Name Results Value Reference Date Interpretation Comments Funmi rce Range HEMATOLOGY Hct 28.7 36.0 - 10/21 [facility] 48.0 /2019 [facility] HEMATOLOGY Hgb 9.7 12.0 - 10/21 [place] 16. [facility] BLOOD BANK ABO/Rh O POS 10/20 [facility] RESULTS [facility] BLOOD BANK Antibody Scrn Negative 10/20 [place] as RESULTS (10/19/18 7:01 PM) [facility] CHEM PANEL LDH 183 98 - 192 10/20 [facility] CHEM PANEL Uric Acid 4.8 2.5 - 7.0 10/20 [facility] CHEM PANEL eGFR 125 10/20 Result Comment: [...] CHEM PANEL Creatinine 0.70 0.50 - 10/20 [facility] Lvl 1.40 [facility] CHEM PANEL ALT 14 0 - 65 10/20 [facility] CHEM PANEL AST 14 0 - 37 10/20 [facility] HEMATOLOGY WBC 12.2 3.7 - 10.4 10/20 [facility] HEMATOLOGY RBC 3.81 4.20 - 10/20 [place] 5.40 [facility] HEMATOLOGY Hgb 11.4 12.0 - 10/20 [facility] 16. [facility] HEMATOLOGY Hct 34.2 36.0 - 10/20 [place] 48.0 [facility] HEMATOLOGY MCV 89.9 80.0 - 10/20 [place] 98.0 [facility] HEMATOLOGY RDW 13.2 11.5 - 10/20 [place] 14.5 [facility] HEMATOLOGY Platelet 285 133 - 450 10/20 [facility] HEMATOLOGY MPV 8.7 7.4 - 10.4 10/20 [facility] HEMATOLOGY MCH 30.0 27.0 - 10/20 [facility] 31.0 [facility] HEMATOLOGY MCHC 33.4 32.0 - 10/20 [facility] 36.0 [facility] HEMATOLOGY Segs 78.7 45.0 - 10/20 [facility] 75.0 [facility] HEMATOLOGY Neutrophils # 9.6 1.5 - 8.1 10/20 [facility] HEMATOLOGY Lymphocytes 15.2 20.0 - 10/20 [facility] 40.0 [facility] HEMATOLOGY Monocytes 5.3 2.0 - 12.0 10/20 [facility] HEMATOLOGY Eosinophils 0.4 0.0 - 4.0 10/20 [facility] HEMATOLOGY Basophils 0.4 0.0 - 1.0 10/20 [facility]2018 [facility] HEMATOLOGY Monocytes # 0.6 0.0 - 0.8 10/20 [facility] HEMATOLOGY Lymphocytes # 1.9 1.0 - 5.5 10/20 [facility] IMMUNOLOGY Treponemal Ab Non-Reactive Non 10/20 [facility] (10/19/18 7:01 PM) [place] IMMUNOLOGY HIV. Negative Negative 10/20 [facility] (10/19/18 7:01 PM) [place] IMMUNOLOGY Hep Bs Ag Negative Negative 10/20 [facility] (10/19/18 7:01 PM) [place] URINE AND UA Sq Epi Few /LPF Few /LPF 11/17 [facility] URINE AND UA Amorph Occasional None Seen 11/17 [facility] s STOOL Ifrah /HPF /HPF /2017 [facility] URINE AND UA Bacteria Few /HPF None Seen 11/[facility] /HPF /[address] [place] [address] URINE AND UA RBC 11-20 /HPF 0 - 2 11/17 [facility] URINE AND UA WBC 0-2 /HPF None Seen 11/17 [facility] STOOL /HPF /[address] [place] [address] URINE AND UA Blood Moderate Negative 11/17 [facility] STOOL *ABN* [facility] (11/17/17 3:24 AM) [place] URINE AND UA Nitrite Negative Negative 11/17 [facility] (11/17/17 3:24 AM) [facility] URINE AND UA Leuk Est Trace Negative 11/17 [facility] *ABN* /2017 [facility] (11/17/17 3:24 AM) [place] URINE AND UA 0.2 0.1 - 1.0 11/17 [facility] Urobilinogen /2017 [facility] URINE AND UA Bili Negative Negative 11/17 [facility] STOOL *NA* /2017 [facility] (11/17/17 3:24 AM) [place] URINE AND UA Protein Negative Negative 11/17 [facility] STOOL (11/17/17 3:24 AM) [facility] URINE AND UA Ketones Trace Negative 11/17 [facility] *ABN* /2017 [facility] (11/17/17 3:24 AM) [place] URINE AND UA Glucose Negative Negative 11/17 [facility] (11/17/17 3:24 AM) [facility] URINE AND UA pH 8.0 5.0 - 8.0 11/17 [facility] URINE AND UA Turbidity Slight Cloudy Clear 11/17 [facility] (11/17/17 3:24 AM) [facility] URINE AND UA Color Yellow Yellow 11/17 [facility] *NA* /2017 [facility] (11/17/17 3:24 AM) [place] URINE AND UA Spec Grav 1.010 <=1.030 11/17 [facility] BLOOD BANK Antibody Scrn Negative 11/17 [facility] as RESULTS (11/16/17 11:59 PM) [facility] BLOOD BANK ABO/Rh O POS 11/17 [place] RESULTS [facility] ELECTROLYTE AGAP 13.7 10.0 - 11/17 [place] S 20.0 [facility] ELECTROLYTE eGFR 77 11/17 Result [facility] S /2017 Comment: The Medical eGFR is [...] ELECTROLYTE CO2 28 24 - 32 11/17 [facility]2017 [facility] ELECTROLYTE Calcium Lvl 10.3 8.5 - 10.5 11/17 [place] [facility] ELECTROLYTE Glucose Lvl 101 70 - 99 11/17 [facility]2017 [facility] ELECTROLYTE Chloride Lvl 103 95 - 109 11/17 [facility] as 2017 [facility] ELECTROLYTE Sodium Lvl 141 135 - 145 11/17 [facility]2017 [facility] ELECTROLYTE BUN 11 7 - 22 11/[address] ELECTROLYTE Creatinine 1.05 0.50 - 11/17 [facility] S Lvl 1.40 [facility] ELECTROLYTE Potassium Lvl 3.7 3.5 - 5.1 11/17 [place] [facility] ENDOCRINOLO hCG Tot <1 11/17 [facility] GY [facility] HEMATOLOGY Platelet 281 133 - 450 11/17 [facility]2017 [facility] HEMATOLOGY MPV 8.7 7.4 - 10.4 11/[address] HEMATOLOGY WBC 9.7 3.7 - 10.4 11/[address] HEMATOLOGY RBC 4.51 4.20 - 11/17 [facility] 5.40 [facility] HEMATOLOGY Hgb 14.5 12.0 - 11/17 [place] 16.0 [facility] HEMATOLOGY Hct 42.6 36.0 - 11/17 [place] 48.0 [facility] HEMATOLOGY MCV 94.4 80.0 - 11/17 [facility] 98.0 [facility] HEMATOLOGY RDW 12.8 11.5 - 11/17 [facility] 14.5 [facility] HEMATOLOGY MCHC 34.0 32.0 - 11/17 [facility] 36.0 [facility] HEMATOLOGY MCH 32.1 27.0 - 11/17 [place] 31.0 [facility] HEMATOLOGY Monocytes # 0.6 0.0 - 0.8 11/17 [facility]2017 [facility] HEMATOLOGY Basophils # 0.1 0.0 - 0.2 11/17 [facility] s [facility] HEMATOLOGY Eosinophils 0.4 0.0 - 4.0 11/17 [facility] HEMATOLOGY Basophils 0.6 0.0 - 1.0 11/17 [facility]2017 [facility] HEMATOLOGY Segs-Bands # 6.8 1.5 - 8.1 11/17 [facility] as [facility] HEMATOLOGY Lymphocytes 23.3 20.0 - 11/17 [facility] 40.0 [facility] HEMATOLOGY Monocytes 6.3 2.0 - 12.0 11/17 [facility]2017 [facility] HEMATOLOGY Lymphocytes # 2.3 1.0 - 5.5 11/17 [place] [facility] HEMATOLOGY Segs 69.4 45.0 - 11/17 [facility] 75.0 [facility] Pathology Reports No Data Provided for This Section Diagnostic Reports Report Value Date Source Retroperitoneal Complete EXAM: US RENAL 04/20/2018 [facility] [place] DATE: 04/20/2018 at 1005 hours Ce [...] contrast EXAM: Abdomen/Pelvis wo contrast MRI 04/15/2018 [place] [facility] DATE: 04/15/2018 at 1247 hours. INDICATION: [...] w EXAMINATION: FIRST TRIMESTER PELVIC SONOGRAM 04/14/2018 [facility] transvag/Dop US HISTORY: Pelvic pain in the [...] CLINICAL HISTORY: - right flank pain 04/14/2018 [place] US AGE: 18 years GENDER: Female TECHNIQUE: Grayscale and li mited doppler images of the kidneys were performed and manufacturer's representative images were submitted for evaluation. COMPARISON: [...] Transvag and EXAM: US PELVIS TRANSABDOMINAL 11/17/2017 [facility] Pelvis Doppler US EXAM: US PELVIS TRANSVAGINAL [...] Date Comments Source Respitory Rate 18 10/21/2018 [facility] Systolic (mm Hg) 104 10/21/2018 [facility] Center Diastolic (mm Hg) 71 10/21/2018 [facility] [place] [facility] Heart Rate 90 10/21/2018 [facility] Temperature Oral (F) 97.6 F 10/21/2018 [facility] Heart Rate 100 10/21/2018 [facility] Systolic (mm Hg) 123 10/21/2018 [facility] dical Center Diastolic (mm Hg) 82 10/21/2018 [facility] Respitory Rate 18 10/21/2018 [facility] Temperature Oral (F) 98.5 F 10/21/2018 [facility] Respitory Rate 18 10/20/2018 [facility] Heart Rate 105 10/20/2018 [facility] Systolic (mm Hg) 125 10/20/2018 [facility] dical Center Diastolic (mm Hg) 70 10/20/2018 [facility] Temperature Oral (F) 98.5 F 10/20/2018 [facility] Height 170.18 cm 10/19/2018 [facility] BMI Calculated 34.69 10/19/2018 [facility] Weight 100.455 10/19/2018 [facility] Systolic (mm Hg) 110 11/17/2017 [facility] dical Center Diastolic (mm Hg) 81 11/17/2017 [facility] Respitory Rate 18 11/17/2017 [facility] Heart Rate 80 11/17/2017 [facility] Temperature Oral (F) 98.4 F 11/17/2017 [facility] Systolic (mm Hg) 97 11/17/2017 [facility] (mm Hg) 66 11/17/2017 [facility] [place] [facility] Respitory Rate 18 11/17/2017 [facility] Heart Rate 93 11/17/2017 [facility] Temperature Oral (F) 98.8 F 11/17/2017 [facility] BMI Calculated 26.68 11/17/2017 [facility] Weight 77.273 11/17/2017 [facility] Temperature Oral (F) 98.4 F 11/17/2017 [facility] Height 170.18 cm 11/17/2017 [facility] Respitory Rate 18 11/17/2017 [facility] Heart Rate 92 11/17/2017 [facility] Systolic (mm Hg) 134 11/17/2017 [facility] Diastolic (mm Hg) 89 11/17/2017 [facility] Encounters Location Location Encounter Encounter Reason Attending ADM DC Stat us Source Details Type Number For Provider Date Date Visit Outpatient [id number] BHARGAV 01/03 Activ e [facility] Emergency [id number] Kaden 11/17 11/17 [facility] Inpatient [id number] Nisha Hongda 10/19 10/22 [facility] /2018 [facility] Procedures No Data Provided for This Section Assessment and Plan No Data Provided for This Section Plan of Care No Data Provided for This Section Social History Social History Date Source Social History TypeResponse 04/15/2018 [facility] Substance Abuse Use: None.1 Alcohol Never Smoking [...]
--- OUTSIDE RECORDS SUMMARY | 2020-07-25 05:57 | XMS REPORT | Continuity of Care Document ---
:2000 Author Organization [facility] t Address [address] [place] [address] Care Team Providers Name Role Phone Asked, Pcp Primary Care Physician Unavailable Felix CHAUHAN, Pablo Attending Clinician Elke Attending Clinician Jeremiah Attending Clinician Elke Admitting Clinician Problems Condition Condition Condition Status Onset Resolution Last Treating Co mments Source Name Details Category Date Date Treatment Clinician Date Patient Problem Active 2018-10-23 Charles georgina currently 10-19 21:59:57 l Patient 00:00: Catherine nn (finding) currently 00 (finding) Active 10/19/2018 Problem 10/23/2018 [facility] INDUCTION Diagnosis Active 2018-11-01 Memoria 10-19 10:10:00 l 00:00: Julio Cesar INDUCTION 00 Active 10/19/2018 [facility] PYELONEPHR Diagnosis Active 2018-04-28 Memoria ITIS, 04-19 13:42:00 l WKS 00:00: [place] GESTATION PYELONEPHR 00 ITIS, 12 WKS GESTATION Active 04/19/2018 [facility] PYELONEPHR Diagnosis Active 2018-04-19 Memoria ITIS 04-19 14:23:00 l 00:00: Julio Cesar PYELONEPHR 00 ITIS Active 04/19/2018 [facility] LABOR Diagnosis Active 2018-10-05 Mem oria 12-25 16:33:00 l LABOR 00:00: Julio Cesar 00 Active 12/25/2017 [facility] ABDOMINAL Diagnosis Active 2017-11-17 Memoria PAIN 11-16 00:34:00 l 00:00: Julio Cesar ABDOMINAL 00 PAIN Active 11/16/2017 [facility] Refractory Problem Active 2018-10-23 Mere emoria migraine 6-10 21:59:57 l without 00:00: Julio Cesar aura Refractory 00 (disorder) migraine without aura (disorder) Active 01/04/2016 Problem 10/23/2018 Data migrated from [employer] on 08/13/15. Graham has common migraine without [...] as Common migraine with intractabl e migraine. [facility] Asthma Problem Resolve 2017-11-20 Charles georgina (disorder) d 04:14:53 l Asthma [place] (disorder) Resolved Problem 11/20/2017 [facility] Headache Problem Resolve 2017-11-20 Me moria (finding) d 04:14:53 l Headache Richard n (finding) Resolved Problem 11/20/2017 [facility] ACUTE Diagnosis Active 2018-04-28 Mem oria PYELONEPHR 13:42:00 l ITIS ACUTE [place] PYELONEPHR ITIS Active [facility] Calculus Problem 2017-11-20 2017-11-20 Memoria of kidney 11-17 04:14:53 04:14:53 l Calculus 05:00: Richard n of kidney 00 11/17/2017 11/20/2017 [facility] History of Past Illness Condition Condition Condition Status Onset Resolution Last Treating Co mments Source Name Details Category Date Date Treatment Clinician Date Chlamydia Problem Resolve 2018-10-23 2018-10-23 Memoria trachomati d 1- 21:59:57 21:59:57 l s 00:00: Julio Cesar infection Chlamydia 00 in trachomati s (disorder) infection in (disorder) Resolved 07/27/2017 Problem 10/23/2018 [facility] Urinary Problem Resolve 2018-2018-10-23 2018-10-23 Memoria tract d 07-27 21:59:57 21:59:57 l infection Urinary 00:00: Annelise willis in tract 00 infection (disorder) in (disorder) Resolved 07/27/2017 Problem 10/23/2018 [facility] Patient Problem Resolve 1997-0 2018-10-23 2018-10-23 Memoria encounter d 07-27 21:59:57 21:59:57 l status Patient 00:00: Julio Cesar (finding) encounter 00 status (finding) Resolved 07/27/1997 Problem 10/23/2018 [facility] Allergies, Adverse Reactions, Alerts Allergy Allergy Status Severity Reaction(s) Onset Inactive Treating Comm ents Source Name Type Date Date Clinician Padma Propensi Active Hives [place] one ty to 04-11 Methodi adverse 00:00: st reaction 00 s to drug acetamin acetamin Active Memori a ophen/bu ophen/bu 6-10 l talbital talbital 05:00: Richard n /caffein /caffein 00 e<sup>1< e<sup>1< /sup> /sup> Social History Social Habit Start Date Stop Date Quantity Comments Source ASSERTION 2019-01-23 [facility] 00:00:00 Sex Assigned At [facility] ethodist Tobacco use and 2019-04-11 2019-04-11 Never used [facility] ethodist exposure 00:00:00 00:00:00 Alcohol intake 2019-04-11 2019-04-11 Ex-drinker [facility] thodist 00:00:00 00:00:00 (finding) Social History 2018-04-15 2018-04-15 [facility] 03:34:00 03:34:00 Smoking Status Start Date Stop Date Source Never smoker [facility] t Medications Ordered Filled Start Stop Current Ordering Indication Dosage Frequency Signature Comments Components Source Medication Medication Date Date Medication? Clinician (SIG) Name Name Yes 1{tbl} QD Take 1 [place] on vit,calc76- 916 tablet by Met johnson iron-folic 17:40: mouth st 29 mg iron- 25 daily. 1 mg tablet per tablet Docusate Yes 100 mg = 1 Mem oria Sodium 100 3-29 cap, PO, l MG Oral 02:39: BID, PRN Richard n Capsule 00 Constipati on, # 60 cap, 0 Refill(s), Pharmacy: [facility] ibuprofen Yes 600 mg = 1 Me moria 600 mg oral 3-29 tab, PO, l tablet 02:39: Q6H, PRN Julio Cesar 00 Other -See Comment, # 60 tab, 0 Refill(s), Pharmacy: [facility] Docusate Yes 100 mg = 1 Mem oria Sodium 100 3-29 cap, PO, l MG Oral 02:39: BID, PRN Richard n Capsule 00 Constipati on, # 60 cap, 0 Refill(s), Pharmacy: [facility] ibuprofen Yes 600 mg = 1 Me moria 600 mg oral 3-29 tab, PO, l tablet 02:39: Q6H, PRN [place] 00 Other -See Comment, # 60 tab, 0 Refill(s), Pharmacy: [facility] [place] [id number] No 1 tab, Memoria Multivitami - Route: PO, l ns oral 14:00: Drug Form: Herm alba tablet 00 TAB, Dosing Weight 100.455, kg, Daily, Start date: 10/21/18 9:00:00 CDT, Duration: 30 day, Stop date: 11/19/18 9:00:00 CDT No 1 tab, Memoria Multivitami - Route: PO, l ns oral 14:00: Drug Form: Herm alba tablet 00 TAB, Dosing Weight 100.455, kg, Daily, Start date: 10/21/18 9:00:00 CDT, Duration: 30 day, Stop date: 11/19/18 9:00:00 CDT M-M-R II No Notes: Memoria 3-27 (Same as: l 21:00: M-M-R II) Julio Cesar (measles-m umps-rubel la virus vaccine 0.5 ml INJ VL) WASTE: F/P - Red; E -Red GIVE PRIOR TO DISCHARGE Ibuprofen No Notes: Memori a 3-27 (Same as: l 21:00: Motrin) Julio Cesar "Do Not Crush" Take with food. M-M-R II No Notes: Memoria 10-20 (Same as: l 21:00: M-M-R II) Julio Cesar 00 (measles-m umps-rubel la virus vaccine 0.5 ml INJ VL) WASTE: F/P - Red; E -Red GIVE PRIOR TO DISCHARGE Ibuprofen No Notes: Memori a 10-20 (Same as: l 21:00: Motrin) "Do Not Crush" Take with food. Bisacodyl No Notes: Memori a 10-20 (Same As: l 20:35: Dulcolax, Julio Cesar Correctol) (Do Not Crush) "Do Not Crush" Docusate No Notes: Memoria 10-20 (Same as: l 20:35: Colace) (Do Not Crush) zolpidem No Notes: Memoria 10-20 (Same As: l 20:35: Ambien) Julio Cesar 00 Methylergon No Notes: Charles georgina ovine 10-20 (Same l 20:35: as:Metherg [place] 00 ine) lanolin No 1 appl, Memoria topical 10-20 Route: l 20:35: TOP, PRN, [place] 00 Drug form: OINT, PRN Other -See Comment, Start date: 10/20/18 15:35:00 CDT, Duration: 30 day, Stop date: 11/19/18 15:34:00 CDT Benzocaine No Notes: Memor ia 200 MG/ML 10-20 (Same As: l Topical 20:35: Dermoplast Herm alba [place] ) WASTE: [Dermoplast Aerosol - ] Return to Pharmacy FOR EXTERNAL USE ONLY Oxytocin No 30 unit, Memor ia 10-20 500 mL, l 20:35: Rate: 42 [place] 00 ml/hr, Infuse over: 11.9 hr, Dosing Weight 100.455, kg, Route: IV, Total Volume: 500 mL, Start date: 10/20/18 15:35:00 CDT, Duration: 2 day, Stop date: 10/22/18 15:34:00 CDT, Replace Every: 11.9 hr Lactated No 1,000 mL, Charles georgina Ringers IV 10-20 Rate: 100 l 1,000 mL 20:35: ml/hr, Julio Cesar Infuse over: 10 hr, Route: IV, Dosing Weight 100.455 kg, Total Volume: 1,000, Start date: 10/20/18 15:35:00 CDT, Duration: 30 day, Stop date: 11/19/18 15:34:00 CDT, 2.21, m2 Ondansetron No Notes: Charles georgina - (Same as: l 20:35: Zofran) Julio Cesar 00 MEDICATION WASTE Product Size: 4 mg Product Wasted: ___ mg Bisacodyl No Notes: Memori a 10-20 (Same As: l 20:35: Dulcolax, Julio Cesar Correctol) (Do Not Crush) "Do Not Crush" Docusate No Notes: Memoria 10-20 (Same as: l 20:35: Colace) Julio Cesar 00 (Do Not Crush) zolpidem No Notes: Memoria 10-20 (Same As: l 20:35: Ambien) Julio Cesar Methylergon No Notes: Charles georgina ovine 10-20 (Same l 20:35: as:Metherg Julio Cesar ine) lanolin No 1 appl, Memoria topical 10-20 Route: l 20:35: TOP, PRN, Julio Cesar Drug form: OINT, PRN Other -See Comment, Start date: 10/20/18 15:35:00 CDT, Duration: 30 day, Stop date: 11/19/18 15:34:00 CDT Benzocaine No Notes: Memor ia 200 MG/ML 10-20 (Same As: l Topical 20:35: Dermoplast Herm alba [place] ) WASTE: [Dermoplast Aerosol - ] Return [...] 4 mg Product Wasted: ___ mg Pitocin 2018- No 10 unit, Memori a 3-27 Route: IM, l 20:17: ONCE, Dosing Weight 100.455, kg, Priority: STAT, Start date: 10/20/18 15:17:00 CDT, Stop date: 10/20/18 15:17:00 CDT Pitocin 0 No 10 unit, Memori a 3-27 Route: IM, l 20:17: ONCE, Dosing Weight [...] ia 3-27 500 mL, l 11:30: Rate: [place] 00 Titrate, Dosing Weight 100.455, kg, Route: IV, Total Volume: 500 mL, Start date: 10/20/18 6:30:00 CDT, Duration: 2 day, Stop date: 10/22/18 6:29:00 CDT, Replace Every: 24 hr Oxytocin 2018- No 30 unit, Memor ia 3-27 500 [...] 3-27 Vaginal l e 11:00: insert: to [place] (Cervidil) 00 be removed insert 1 hour prior to oxytocin administra tion or 12 hours after insertion. Cervidil No Notes: Memoria 3-27 (Same as: l 02:00: Cervidil) Julio Cesar 00 Cervidil No Notes: Memoria 3-27 (Same as: l 02:00: Cervidil) Julio Cesar Misoprostol No Notes: Charles georgina 3-27 (Same l 00:00: as:Cytotec [place] 00 ) Take with food Famotidine 2018- No Notes: Memor ia 3-27 (Same as: l 00:00: Pepcid) [place] 00 Can be dilute in 5-10cc NS IVP: Slow IV push over at least 2 minutes. Carboprost 2018- No Notes: Memor ia 3-27 (Same As: l 00:00: Hemabate) [place] 00 Citric Acid 2018-0 No Notes: Charles georgina / sodium 3-27 (Same As: l citrate 00:00: BicitraRichard n 00 Cytra-2) Sodium citrate-ci tric acid (500-334 mg/5 mL): 1 mL contains sodium 1 mEq/mL and bicarbonat e 1 mEq/mL Methylergon 2018-0 No Notes: Charles georgina ovine 3-27 (Same l 00:00: as:Metherg [place] 00 ine) Misoprostol No Notes: Charles georgina 3-27 (Same l 00:00: as:Cytotec Julio Cesar 00 ) Take with food Famotidine No Notes: Memor ia 3-27 (Same as: l 00:00: Pepcid) Can be dilute in 5-10cc NS IVP: Slow IV push over at least 2 minutes. Carboprost No Notes: Memor ia 3-27 (Same As: l 00:00: Hemabate) [place] Citric Acid No Notes: Charles georgina / sodium 3- (Same As: l citrate 00:00: Bicitra, Richard n 00 Cytra-2) Sodium citrate-ci tric acid (500-334 mg/5 mL): 1 mL contains sodium 1 mEq/mL and bicarbonat e 1 mEq/mL Methylergon No Notes: Charles georgina ovine 3- (Same l 00:00: as:Metherg [place] 00 ine) Acetaminoph No Notes: Charles georgina en 325 MG / 3-26 (Same as: l Hydrocodone 23:50: [place] Catherine nn Bitartrate 00 325/5) Do 5 [...] NOT l 23:50: USE IN Julio Cesar IN FILE OPERATOR AREA (Same As: [place]) Butorphanol No Notes: Charles georgina 3-26 (Same As: l 23:50: Stadol) MEDICATION WASTE Product Size: 2 mg Product Wasted: __1_ mg Oxytocin No 30 unit, Memor ia 3-26 500 mL, l 23:50: Rate: 42 [place] 00 ml/hr, Infuse over: 11.9 hr, Dosing Weight 100.455, kg, Route: IV, Total Volume: 500 mL, Start date: 10/19/18 18:50:00 CDT, Duration: 2 day, Stop date: 10/21/18 18:49:00 CDT, Replace Every: 11.9 hr Calcium No 1,000 mL, Memor ia Chloride 3-26 1,000 l 0.0014 23:50: ml/hr, [place] MEQ/ML / 00 Infuse Potassium Over: 1 [...] a 3-26 (Same as: l 23:50: Motrin) [place] 00 "Do Not Crush" Take with food. Acetaminoph No Notes: Charles georgina en 325 MG / 3-26 (Same as: l Hydrocodone 23:50: [place] Catherine nn Bitartrate 00 325/5) Do 5 [...] ___ mg Terbutaline No Notes: Charles georgina -26 DO NOT l 23:50: USE IN IN FILE OPERATOR AREA (Same As: [place]) Butorphanol No Notes: Charles georgina 3-26 (Same As: l 23:50: Stadol) MEDICATION WASTE Product Size: 2 mg Product Wasted: __1_ mg Oxytocin No 30 unit, Memor ia - 500 mL, l 23:50: Rate: 42 [place] 00 ml/hr, Infuse over: 11.9 hr, Dosing Weight 100.455, kg, Route: IV, Total Volume: 500 mL, Start date: 10/19/18 18:50:00 CDT, Duration: 2 day, Stop date: 10/21/18 18:49:00 CDT, Replace Every: 11.9 hr Calcium No 1,000 mL, Memor ia Chloride 10-19 1,000 l 0.0014 23:50: ml/hr, MEQ/ML / [...] 2.21, m2 Ibuprofen No Notes: Memori a -26 (Same as: l 23:50: Motrin) Julio Cesar [...] a 4-24 Route: l 07:05: IVP, Drug [place] form: INJ, ONCE, Dosing Weight 77.273, kg, Priority: STAT, Start date: 11/17/17 2:05:00 CDT, Stop date: 11/17/17 2:05:00 CDT Ketorolac 2018-0 No 15 mg, Memori a 4-24 Route: l 07:05: IVP, Drug Julio Cesar form: INJ, ONCE, Dosing Weight 77.273, kg, Priority: STAT, Start date: 11/17/17 2:05:00 CDT, Stop date: 11/17/17 2:05:00 CDT Sodium 2018-0 No 1,000 mL, Memori a Chloride 4-24 1000 l 0.9% 06:25: ml/hr, [place] (Bolus) IV 00 Infuse Over: 1 hr, [...] Memoria 4-24 Route: l 04:16: IVP, ONCE, [place] 00 Dosing Weight 77.273, kg, Priority: STAT, Start date: 11/16/17 23:16:00 CDT, Stop date: 11/16/17 23:16:00 CDT Vital Signs Vital Name Observation Time Observation Value Comments Source Respitory Rate 2018-10-21 13:54:00 Memori al [place] Systolic (mm Hg) 2018-10-21 13:54:00 Charles rial [place] Diastolic (mm Hg) 2018-10-21 13:54:00 Mem orial Julio Cesar Heart Rate 2018-10-21 13:54:00 [facility] [place] Temperature Oral (F) 2018-10-21 13:54:00 97.6 F Memorial Julio Cesar Heart Rate 2018-10-21 05:00:00 [facility] [place] Systolic (mm Hg) 2018-10-21 05:00:00 Charles rial Julio Cesar Diastolic (mm Hg) 2018-10-21 05:00:00 Mem orial Julio Cesar Respitory Rate 2018-10-21 05:00:00 Memori al Julio Cesar Temperature Oral (F) 2018-10-21 05:00:00 98.5 F [facility] [place] Respitory Rate 2018-10-20 23:03:00 Memori al Julio Cesar Heart Rate 2018-10-20 23:03:00 Memorial Julio Cesar Systolic (mm Hg) 2018-10-20 23:03:00 Charles rial Julio Cesar Diastolic (mm Hg) 2018-10-20 23:03:00 Mem orial [place] Temperature Oral (F) 2018-10-20 23:03:00 98.5 F Memorial Julio Cesar Height 2018-10-19 23:47:00 170.18 cm [facility] [place] BMI Calculated 2018-10-19 23:47:00 Memori al [place] Weight 2018-10-19 23:47:00 [facility] [place] Systolic (mm Hg) 2017-11-17 09:02:00 Charles rial [place] Diastolic (mm Hg) 2017-11-17 09:02:00 Mem orial Julio Cesar Respitory Rate 2017-11-17 09:02:00 Memori al [place] Heart Rate 2017-11-17 09:02:00 [facility] [place] Temperature Oral (F) 2017-11-17 09:02:00 98.4 F [facility] Julio Cesar Systolic (mm Hg) 2017-11-17 06:22:00 Charles rial Julio Cesar Diastolic (mm Hg) 2017-11-17 06:22:00 Mem orial [place] Respitory Rate 2017-11-17 06:22:00 Memori al [place] Heart Rate 2017-11-17 06:22:00 Memorial Julio Cesar Temperature Oral (F) 2017-11-17 06:22:00 98.8 F [facility] Julio Cesar BMI Calculated 2017-11-17 04:01:00 Memori al [place] Weight 2017-11-17 04:01:00 [facility] Julio Cesar Temperature Oral (F) 2017-11-17 04:01:00 98.4 F [facility] Julio Cesar Height 2017-11-17 04:01:00 170.18 cm [facility] Julio Cesar Respitory Rate 2017-11-17 04:01:00 Memori al [place] Heart Rate 2017-11-17 04:01:00 [facility] Julio Cesar Systolic (mm Hg) 2017-11-17 04:01:00 Charles rial [place] Diastolic (mm Hg) 2017-11-17 04:01:00 Mem orial [place] Procedures This patient has no known procedures. Plan of Care Planned Activity Planned Date Details Comments Source Future Scheduled 2020-02-25 INFLUENZA VACCINE [place] [facility] 00:00:00 [code = INFLUENZA VACCINE] Future Scheduled 2019 Screening for [facility]ist Test 00:00:00 malignant neoplasm of cervix (procedure) [code = 241142223] Future Scheduled 2014 CHLAMYDIA SCREENING [facility] Test 00:00:00 [code = CHLAMYDIA SCREENING] Future Scheduled 2014 COVID-19 VACCINE [facility] 00:00:00 (#1) [code = COVID-19 VACCINE (#1)] Encounters Start End Encounter Admission Attending Care Care Encounter Source Date/Time Date/Time Type Type Clinicians Facility Department ID 2019-10-12 Inpatient U [id number] [facility] 18:43:00 2020-04-10 2020-04-10 Emergency E [facility] [id number] [facility] 15:48:00 15:48:00 2019-09-29 2019-09-29 Emergency E [facility] [id number] [facility] 16:39:00 16:39:00 2019-09-23 2019-09-23 Emergency E [id number] [facility] 19:02:00 19:02:00 2019-08-26 2019-08-26 Emergency E [facility] [id number] [facility] 16:24:00 16:24:00 2019-04-05 2019-04-05 Abstract Felix ALTANESHA [id number] 00:00:00 00:00:00 Milka D IN FILE OPERATOR [id number] [facility] [id number] MATERNAL [id number] & CHILD 116 [facility] 2019-03-31 2019-03-31 [facility] [id number] 13:56:28 15:24:21 Milka D IN FILE OPERATOR [id number] Visit REGIONAL [id number] MATERNAL [id number] & CHILD 116 [facility] 2018-10-19 2018-10-21 Outpatient Elke Nisha [facility] [id number] 17:53:00 22:17:00 2018-10-19 2018-10-21 Outpatient Elke Nisha [facility] [id number] 17:53:00 22:17:00 2017-11-16 2017-11-17 Outpatient Jeremiah [facility] [id number] 23:00:00 04:17:00 Kaden 00 2017-11-16 2017-11-17 Outpatient Jeremiah [facility] [id number] 23:00:00 04:17:00 Kaden 00 Results Test Description Test Time Test Comments Results Result [facility] e Comments HEMATOLOGY 2018-10-21 28.7 [facility] 11:36:00 [place] HEMATOLOGY 2018-10-21 9.7 Memorial 11:36:00 [place] HEMATOLOGY 2018-10-21 28.7 Memorial 11:36:00 [place] HEMATOLOGY 2018-10-21 9.7 Memorial 11:36:00 [place] BLOOD BANK RESULTS 2018-10-20 Negative Memori al 00:01:00 (10/19/18 7:01 Julio Cesar ) CHEM PANEL 2018-10-20 183 [facility] 00:01:00 Julio Cesar CHEM PANEL 2018-10-20 4.8 Memorial 00:01:00 Julio Ceasr CHEM PANEL 2018-10-20 125 [facility] 00:01:00 Julio Cesar CHEM PANEL 2018-10-20 0.70 [facility] 00:01:00 [place] CHEM PANEL 2018-10-20 14 [facility] 00:01:00 [place] CHEM PANEL 2018-10-20 14 [facility] 00:01:00 [place] HEMATOLOGY 2018-10-20 12.2 Memorial 00:01:00 Julio Cesar HEMATOLOGY 2018-10-20 3.81 Memorial 00:01:00 Julio Cesar HEMATOLOGY 2018-10-20 11.4 Memorial 00:01:00 [place] HEMATOLOGY 2018-10-20 34.2 Memorial 00:01:00 Julio Cesar HEMATOLOGY 2018-10-20 89.9 Memorial 00:01:00 [place] HEMATOLOGY 2018-10-20 13.2 [facility] 00:01:00 [place] HEMATOLOGY 2018-10-20 285 [facility] 00:01:00 Julio Cesar HEMATOLOGY 2018-10-20 8.7 [facility] 00:01:00 [place] HEMATOLOGY 2018-10-20 00:01:00 Test Item Value Reference Range Interpretation Comme nts MCH (test code = MCH) 30.0 pg 27.0-31.0 [facility] [id number] 00:01:0033.4[facility]ann[facility]MATOLOGY 2018-10-20 00:01:0078.7[facility] SfbycsfUQMQYODUCH8811-38-55 00:01:009.6[facility] CndlupbCFPAFRWIZP6292-87-44 00:01:0015.2[facility] AlwrjatWEXABLRRUK7870-73-35 00:01:005.3[facility] NhpeujpRQTXIVGFYV9894-48-21 00:01:000.4[facility] [place] IFLAMBAARK1198-85-83 00:01:000.4[facility] FqhgwrkLALZVITISE8421-87-95 00:01:000.6 Memorial MlncstiBXMPEVIBFX0303-88-99 00:01:001.9[facility] HermannIMMUNOLOGY 2018-10-20 00:01:00Non-Reactive *NA*(10/19/18 7:01 PM)[facility]ann[facility]MUNOLOGY 2018-10-20 00:01:00Negative *NA*(10/19/18 7:01 PM)[facility]ann[facility]MUNOLOGY 2018-10-20 00:01:00Negative *NA*(10/19/18 7:01 PM)[facility]ann[facility]OOD BANK [id number] 00:01:00Negative (10/19/18 7:01 PM)[facility] HermannCHEM PANEL 2018-10-20 00:01:54487Oqdkdbra HermannCHEM RHJWC8977-46-52 00:01:004.8[facility] HermannCHEM XDKFQ6015-94-38 00:01:99514Qngerouw HermannCHEM AJSFX0016-23-85 00:01:000.70[facility] HermannCHEM BANRV4078-07-93 00:01:0014[facility] HermannCHEM FASME8166-22-87 00:01:0014[facility] BfdplgzRRJLEENOBZ1909-62-96 00:01:0012.2 Memorial JmjtzzpLPMHBYOUAC1342-15-05 00:01:003.81[facility] HermannHEMATOLOGY 2018-10-20 00:01:0011.4[facility] DmifbwrWXMGKAFYZB6035-38-44 00:01:0034.2[facility] DwhofltHYWXQVFMUW6510-37-40 00:01:0089.9[facility] KhmyohmWNVQRYMOGD1188-03-39 00:01:0013.2[facility]orial GbwvzyfCVVFGQZQRC0050-06-45 00:01:83928Bvejotji [place] QLUOUPNSBY5370-85-89 00:01:008.7[facility] CicmxyqMMGJAGNFGT2500-74-00 00:01:00 Test Item Value Reference Range Interpretation Comments MCH (test code = MCH) 30.0 pg 27.0-31.0 Memorial WgxobrhMZOURUEDKC5547-96-23 00:01:0033.4[facility] HermannHEMATOLOGY 2018-10-20 00:01:0078.7[facility] DwcaxcfPXWEOLOWYJ0884-31-15 00:01:009.6[facility] NaglqypUHQOQSKBUP2430-11-63 00:01:0015.2[facility] GtjsljoHJOWNVAFYR7858-07-75 00:01:005.3[facility] TfgeslyXUHSFRNBJC4273-91-40 00:01:000.4[facility] Julio Cesar MLEUHPAIQV9069-91-95 00:01:000.4[facility] IhhtbyqQKJZDFSSAR9838-59-64 00:01:000.6 Memorial CmupgddBYOGOEVGHM5080-24-08 00:01:001.9[facility] HermannIMMUNOLOGY 2018-10-20 00:01:00Non-Reactive *NA*(10/19/18 7:01 PM)[facility]annIMMUNOLOGY 2018-10-20 00:01:00Negative *NA*(10/19/18 7:01 PM)[facility]annIMMUNOLOGY 2018-10-20 00:01:00Negative *NA*(10/19/18 7:01 PM)[facility]annURINE AND STOOL 2017-11-17 08:24:15Moderate *ABN*(11/17/17 3:24 AM)[facility] [id number] 08:24:15Negative (11/17/17 3:24 AM)[facility] MUKOP2549-28-71 08:24:15Trace *ABN*(11/17/17 3:24 AM)[facility] [id number] 08:24:150.2[facility] AND [id number] 08:24:15 Negative *NA*(11/17/17 3:24 AM)[facility] XBWTQ4585-08-78 08:24:15 Negative (11/17/17 3:24 AM)[facility] [id number] 08:24:15 Trace *ABN*(11/17/17 3:24 AM)[facility] [id number] 08:24:15 Negative (11/17/17 3:24 AM)[facility] [id number] 08:24:15 Test Item Value Reference Range Interpretation Comments UA pH (test code = UA pH) 8.0 1 5.0-8.0 [facility] [id number] 08:24:15Slight Cloudy (11/17/17 3:24 AM)[facility] [id number] 08:24:15Yellow *NA*(11/17/17 3:24 AM)[facility] [id number] 08:24:15 Test Item Value Reference Range Interpretation Comments UA Spec Grav (test code = UA Spec 1.010 1 Grav) [facility] [id number] 08:24:15Moderate *ABN*(11/17/17 3:24 AM)[facility] [id number] 08:24:15Negative (11/17/17 3:24 AM) [facility] [id number] 08:24:15Trace *ABN*(11/17/17 3:24 AM) [facility] [id number] 08:24:150.2[facility] [id number] 08:24:15Negative *NA*(11/17/17 3:24 AM)[facility] [id number] 08:24:15Negative (11/17/17 3:24 AM)[facility] [id number] 08:24:15Trace *ABN*(11/17/17 3:24 AM)[facility] [id number] 08:24:15Negative (11/17/17 3:24 AM)[facility] [id number] 08:24:15 Test Item Value Reference Range Interpretation Comments UA pH (test code = UA pH) 8.0 1 5.0-8.0 [facility] [id number] 08:24:15Slight Cloudy (11/17/17 3:24 AM)[facility] [id number] 08:24:15Yellow *NA*(11/17/17 3:24 AM)[facility] [id number] 08:24:15 Test Item Value Reference Range Interpretation Comments UA Spec Grav (test code = UA Spec 1.010 1 Grav) [facility] [id number] 04:59:00Negative (11/16/17 11:59 PM) [facility] [id number] 04:59:00Negative (11/16/17 11:59 PM) [facility] [id number] 04:24:0013.7[facility] 2017-11-17 04:24:0077[facility] [id number] 04:24:0028[facility] HnvltluKJJARQNYTUTH7456-13-72 04:24:0010.3[facility] [id number] 04:24:34914Kofqsscb BrhzlomDEWYGGAXEAFS0801-60-89 04:24:06404Gkdrtbrx Julio Cesar EKXPJBVTJBDK0925-83-12 04:24:91908Xmyezlxj WfdrxzuDERVEFXHBBRU8474-68-86 04:24:0011[facility] WqoudriSCPETARNVPAY2920-17-57 04:24:001.05[facility] ZICRDRKUPIAR8378-80-22 04:24:003.7[facility] ScxojkdOLWYUHXDENDNI6132-61-33 04:24:00<1[facility] EmodscjLFRBDKZPDT8575-76-81 04:24:04634Pzsgiomc Julio Cesar LCZFCURGGL2098-89-50 04:24:008.7[facility] DursoesEWEWZBIALR3507-56-74 04:24:009.7 [facility] DifsxiqGLTHXFFAVV9220-16-85 04:24:004.51[facility]annHEMATOLOGY 2017-11-17 04:24:0014.5[facility] WydfebcVQQFTLAPRM2998-11-32 04:24:0042.6[facility] WkdnvivNMLHOUSLSK9578-72-43 04:24:0094.4[facility] FspmltzSPJVIQTWAI0700-31-16 04:24:0012.8[facility] JcnbgeyBBZPCZMXBY6375-42-92 04:24:0034.0[facility] QROSRDJPSF2618-03-44 04:24:00 Test Item Value Reference Range Interpretation Comments MCH (test code = MCH) 32.1 pg 27.0-31.0 [facility] LetdahaVUEZPSWSHM3735-09-11 04:24:000.6[facility]annHEMATOLOGY 2017-11-17 04:24:000.1[facility] SafcfwpJNAAEVEJCM0097-47-70 04:24:000.4[facility] FugfzqaRDLMQEERPS5191-92-86 04:24:000.6[facility] IfvmtnhTFQLDZCLAA8178-91-67 04:24:006.8[facility] BodrcofLDMBLGBXNS0340-73-90 04:24:0023.3[facility] DHILCMJCTK2185-97-40 04:24:006.3[facility] XxzlzjnBWPVBHCMTD1373-99-98 04:24:002.3 [facility] LgnezrvPSDUUPMZZY6105-35-53 04:24:0069.4[facility] HermannELECTROLYTES 2017-11-17 04:24:0013.7[facility] DgbqxwxGEAQJKVTTQVV1141-00-40 04:24:0077[facility] QbgychdEPMGYXQPYJKD6430-49-84 04:24:0028[facility] ShuaymmGCPUXSFBSMJG8608-48-12 04:24:0010.3[facility] EtygdmvBPXICHVNGJKR5684-56-13 04:24:89322Jptwzpyn [place] GDXGKLRYVYUQ8423-52-51 04:24:02661Cdptswkx VcffzjbHCEOHSKGDCTV6216-93-57 04:24:24686Irvaeier EokvvshLFPUVBWMOBZC0526-49-82 04:24:0011[facility] HIPFJSBTEJWH0526-00-51 04:24:001.05[facility] JwnevdiZNEGCARHWBID7780-03-87 04:24:003.7[facility] LsdpccfQESFBNUIRRTBC5791-46-02 04:24:00<1[facility] MKZOAOUJMU4072-87-64 04:24:70020Ohciuuqy ZdbnavjKELLJFQEBR0360-29-43 04:24:008.7 [facility] LvarpqqWUKKPGTLCB4557-08-64 04:24:009.7[facility] HermannHEMATOLOGY 2017-11-17 04:24:004.51[facility] GkbxrwnAGVBFXTTLK2687-28-36 04:24:0014.5[facility] TpryqmvGVILNDLCPP5439-57-36 04:24:0042.6[facility] UmciryfSAGTUMEDUY0143-92-46 04:24:0094.4[facility] LfepbkuRUSHOUPIGX7953-10-88 04:24:0012.8[facility] QRQFYUTXPS1303-21-99 04:24:0034.0[facility] HpldaqqFJDGRNGOKB9511-52-02 04:24:00 Test Item Value Reference Range Interpretation Comments MCH (test code = MCH) 32.1 pg 27.0-31.0 [facility] RlqgzbrIQMWJECPSX5558-92-58 04:24:000.6[facility] HermannHEMATOLOGY 2017-11-17 04:24:000.1[facility] KymarfmUSHVZENAVK0505-43-11 04:24:000.4[facility] SumayfyYESZEWFCXC8529-88-73 04:24:000.6[facility] HuhtqieMOXLJHAOYN4218-77-90 04:24:006.8[facility] ZqhtkqpHZHKVIJHDV4174-95-78 04:24:0023.3[facility] WCLPQEGPUB4510-10-91 04:24:006.3[facility] FeffzisOZUYHBPBBR5232-09-47 04:24:002.3 [facility] HumhfrjXIIZZPAPOC0932-94-23 04:24:0069.4[facility] Julio [facility]esar
--- NOTE | 2020-07-25 07:29 | EDPHYS ---
Physician Documentation [facility] Name: Graham Aguilar Age: 20 yrs Sex: Female : 2000 Arrival Date: 07/25/2020 Time: 06:02 Bed 21 Private MD: ED Physician Tino Cason HPI: 07/25 07:23 This 20 yrs old Female presents to ER via Ambulatory with complaints of Sore larry Throat, Sneezing. 07:23 The patient presents with sore throat. The patient describes throat pain as constant. larry Onset: The symptoms/episode began/occurred 2 day(s) ago. Severity of symptoms: At their worst the symptoms were mild, in the emergency department the symptoms are unchanged. Modifying factors: The symptoms are alleviated by nothing, the symptoms are aggravated by nothing. Associated signs and symptoms: The patient has no apparent associated signs or symptoms. The patient has not experienced similar symptoms in the past. Historical: - Allergies: 06:39 "prescription headache medication"; sg - PSHx: 06:39 None; sg - Family history:: not pertinent. ROS: 07:23 Constitutional: Negative for fever, chills, and weight loss, Eyes: Negative for injury, larry pain, redness, and discharge, ENT: Negative for injury, pain, and discharge, Neck: Negative for injury, pain, and swelling, Cardiovascular: Negative for chest pain, palpitations, and edema, Abdomen/GI: Negative for abdominal pain, nausea, vomiting, diarrhea, and constipation, Back: Negative for injury and pain, : Negative for injury, bleeding, discharge, and swelling, MS/Extremity: Negative for injury and deformity, Skin: Negative for injury, rash, and discoloration, Neuro: Negative for headache, weakness, numbness, tingling, and seizure, Psych: Negative for depression, anxiety, suicide ideation, homicidal ideation, and hallucinations, Allergy/Immunology: Negative for hives, rash, and allergies, Endocrine: Negative for neck swelling, polydipsia, polyuria, polyphagia, and marked weight changes, Hematologic/Lymphatic: Negative for swollen nodes, abnormal bleeding, and unusual bruising. 07:23 Respiratory: Positive for cough, with no reported sputum. Exam: 07:23 Constitutional: This is a well developed, well nourished patient who is awake, alert, larry and in no acute distress. Head/Face: Normocephalic, atraumatic. Eyes: Pupils equal round and reactive to light, extra-ocular motions intact. Lids and lashes normal. Conjunctiva and sclera are non-icteric and not injected. Cornea within normal limits. Periorbital areas with no swelling, redness, or edema. ENT: Nares patent. No nasal discharge, no septal abnormalities noted. Tympanic membranes are normal and external auditory canals are clear. Oropharynx with no redness, swelling, or masses, exudates, or evidence of obstruction, uvula midline. Mucous membranes moist. Neck: Trachea midline, no thyromegaly or masses palpated, and no cervical lymphadenopathy. Supple, full range of motion without nuchal rigidity, or vertebral point tenderness. No Meningismus. Chest/axilla: Normal chest wall appearance and motion. Nontender with no deformity. No lesions are appreciated. Cardiovascular: Regular rate and rhythm with a normal S1 and S2. No gallops, murmurs, or rubs. Normal PMI, no JVD. No pulse deficits. Abdomen/GI: Soft, non-tender, with normal bowel sounds. No distension or tympany. No guarding or rebound. No evidence of tenderness throughout. Back: No spinal tenderness. No costovertebral tenderness. Full range of motion. Skin: Warm, dry with normal turgor. Normal color with no rashes, no lesions, and no evidence of cellulitis. MS/ Extremity: Pulses equal, no cyanosis. Neurovascular intact. Full, normal range of motion. Neuro: Awake and alert, GCS 15, oriented to person, place, time, and situation. Cranial nerves II-XII grossly intact. Motor strength 5/5 in all extremities. Sensory grossly intact. Cerebellar exam normal. Normal gait. Psych: Awake, alert, with orientation to person, place and time. Behavior, mood, and affect are within normal limits. 07:23 Respiratory: the patient does not display signs of respiratory distress, Respirations: normal, Breath sounds: bronchial sounds, rhonchi, that are mild, Respiratory rate: 18 Vital Signs: 07:38 BP 102 / 65; Pulse 93; Resp 17; Temp 97.2; Pulse Ox 98% ; bp MDM: 06:31 Patient medically screened. [facility] 07:23 Differential diagnosis: bronchitis, pharyngitis, upper respiratory infection. Data [facility] reviewed: vital signs, nurses notes, lab test result(s). Data interpreted: library monitor: rate is 75 beats/min, rhythm is regular. Test interpretation: by ED physician or midlevel provider:. Counseling: I had a detailed discussion with the patient and/or guardian regarding: the historical points, exam findings, and any diagnostic results supporting the discharge/admit diagnosis. 07/25 06:24 Order name: Flu 07/25 06:24 Order name: Strep 07/25 07:10 Order name: Throat Culture EDDE Administered Medications: No medications were administered Disposition: 07/25/20 07:28 Discharged to Home. Impression: Acute upper respiratory infection, unspecified. - Condition is Stable. - Discharge Instructions: Upper Respiratory Infection, Adult, Cool Mist Vaporizer, Upper Respiratory Infection, Adult, Oscr-ng-Eyyr, Cough, Adult. - Prescriptions for Pepcid 20 mg Oral Tablet - take 1 tablet by ORAL route every 12 hours for 10 days; 20 tablet. Zithromax Z- Brady 250 mg Oral Tablet - take 1 tablet by ORAL route as directed for 5 days Day 1 - take two (2) tablets one time. Day 2, 3, 4 , 5 take one (1) tablet once daily.; 6 tablet. Medrol (Brady) 4 mg Oral Tablets, Dose Pack - take 1 tablet by ORAL route as directed - follow package instructions; 1 packet. - Medication Reconciliation Form, Thank You Letter, Antibiotic Education, Prescription Opioid Use form. - Follow up: Private Physician; When: 2 - 3 days; Reason: Recheck today's complaints, Continuance of care, Re-evaluation by your physician. - Problem is new. - Symptoms have improved. Signatures: Dispatcher [employer] [facility] Nghia Bertrand, RN RN Tino Garrido MD MD cha Peltier, Brian RN RN bp Corrections: (The following items were deleted from the chart) 06:42 06:24 CORONAVIRUS+LAB.BRZ ordered. [facility] 08:04 07:28 07/25/2020 07:28 Discharged to Home. Impression: Acute upper respiratory bp infection, unspecified. Condition is Stable. Forms are Medication Reconciliation Form, Thank You Letter, Antibiotic Education, Prescription Opioid Use. Follow up: Private Physician; When: 2 - 3 days; Reason: Recheck today's complaints, Continuance of care, Re-evaluation by your physician. Problem is new. Symptoms have improved. larry
--- NOTE | 2020-07-25 07:29 | ER ---
Nurse's Notes [facility] Name: Graham Aguilar Age: 20 yrs Sex: Female : 2000 Arrival Date: 07/25/2020 Time: 06:02 Bed 21 Private MD: Diagnosis: Acute upper respiratory infection, unspecified Presentation: 07/25 06:26 Note Covid Test done today, unsure of results at this time. 06:26 Chief complaint: Patient states: I have had sore throat, with runny nose that is clear sg drainage, and sneezing for 2-4 days now. no other symptoms reported for triage at this time. Coronavirus screen: runny nose, sore throat, Client presents with at least one sign or symptom that may indicate coronavirus-19. Standard/surgical mask placed on the client. Provider contacted for isolation considerations. The client indicates previous COVID test results are pending. Date of collection: July 24, 2020. Ebola Screen: Patient negative for fever greater than or equal to 101.5 degrees Fahrenheit, and additional compatible Ebola Virus Disease symptoms Patient denies exposure to infectious person. Patient denies travel to an Ebola-affected area in the 21 days before illness onset. No symptoms or risks identified at this time. Initial Sepsis Screen: Does the patient meet any 2 criteria? No. Patient's initial sepsis screen is negative. Initial Sepsis Screen: Does the patient have a suspected source of infection? No. Patient's initial sepsis screen is negative. Risk Assessment: Do you want to hurt yourself or someone else? Patient reports no desire to harm self or others. Onset of symptoms was July 21, 2020. Care prior to arrival: None. Activity prior to arrival: None. Transition of care: patient was not received from another setting of care. 06:26 Acuity: MOSHE 4 sg 06:26 Method Of Arrival: Ambulatory sg Triage Assessment: 07:00 General: Appears in no apparent distress. comfortable, Behavior is cooperative, bp appropriate for age, anxious. Pain: Denies pain. EENT: Reports nasal discharge that is watery. Neuro: No deficits noted. Cardiovascular: No deficits noted. Respiratory: No deficits noted. GI: No signs and/or symptoms were reported involving the gastrointestinal system. : No signs and/or symptoms were reported regarding the genitourinary system. Derm: No deficits noted. Musculoskeletal: No deficits noted. Historical: - Allergies: 06:39 "prescription headache medication"; sg - PSHx: 06:39 None; sg - Family history:: not pertinent. Screenin:17 Abuse screen: Denies threats or abuse. Denies injuries from another. Nutritional mg2 screening: No deficits noted. Tuberculosis screening: No symptoms or risk factors identified. Fall Risk None identified. Assessment: 06:30 General: Appears in no apparent distress. comfortable, Behavior is calm, cooperative. mg2 Pain: Complains of pain in throat. Respiratory: Airway is patent Respiratory effort is even, unlabored, Respiratory pattern is regular, symmetrical. EENT: Reports sore throat. 07:00 Reassessment: RECD REPORT FROM CHRIS TIWARI. ALL CURRENT ORDERS COMPLETED. Respiratory: bp Breath sounds are clear bilaterally. 08:03 Reassessment: PT D/C HOME AMBULATORY WITH FAMILY, DX WITH ACUTE URI. bp Vital Signs: 07:38 BP 102 / 65; Pulse 93; Resp 17; Temp 97.2; Pulse Ox 98% ; bp ED Course: 06:02 Patient arrived in ED. cl3 06:18 Salvatore Dye, RN is Primary Nurse. mg2 06:26 Arm band placed on. sg 06:31 Tino Cason MD is Attending Physician. larry 06:38 Triage completed. sg 06:44 Flu and/or RSV swab sent to lab. Strep swab sent to lab. ar5 07:17 Patient has correct armband on for positive identification. mg2 07:17 No provider procedures requiring assistance completed. Patient did not have IV access mg2 during this emergency room visit. Administered Medications: No medications were administered Outcome: 07:28 Discharge ordered by . larry 08:03 Discharged to home ambulatory, with family. bp 08:03 Condition: stable 08:03 Discharge instructions given to patient, Instructed on discharge instructions, follow up and referral plans. medication usage, Demonstrated understanding of instructions, follow-up care, medications, Prescriptions given X 2. 08:04 Patient left the ED. bp Signatures: Nghia Bertrand RN Tino Bar MD MD cha Peltier, Brian, RN RN bp Salvatore Dye RN RN mg2 Angie Redd ar5 Eusebia Torre cl3 Corrections: (The following items were deleted from the chart) 07:42 07:38 Resp 17bpm; Temp 97.2F; bp bp
[2020-07-25 08:08] VITALS: BP 102/65; TEMP 97.2; O2SAT 98
== END 2020-07-25 08:04 | disposition home or self-care (01) ==
LOC: ER 05:53
DX: J06.9 Acute upper respiratory infection, unspecified (principal); R05 Cough; Z88.8 Allergy status to other drugs, medicaments and biological substances
CPT/HCPCS: 87070; 87081; 87804; 99283

== ENCOUNTER 2020-09-01 08:49 | Emergency (ER) | payer OTHER ==
--- OUTSIDE RECORDS SUMMARY | 2020-09-01 08:52 | XMS REPORT | Clinical Summary ---
:2000 Author Organization [facility] Address [address] [place] [id number] Care Team Providers Name Role Phone Asked, No Pcp Primary Care Provider Unavailable Allergies Active Allergy Reactions Severity Noted Date Comments Ceftriaxone Hives High 04/11/2019 Medications Medication Sig Dispensed Refills Start Date End Date Status Take 1 tablet by 0 Act kyra vit,ruus00-ofdy-wlyne mouth daily. 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
--- OUTSIDE RECORDS SUMMARY | 2020-09-01 08:53 | XMS REPORT | Continuity of Care Document ---
:2000 Author Organization Presentain Information [employer] Care Team Providers Name Role Phone [facility] [email or web address] Information [employer] Unavailable Un available Problems Problem Status Onset Classification Date Comments Sourc e Date Reported Patient currently Active Problem 10/23/2018 [facility] Medical (finding) Center INDUCTION Active [address] PYELONEPHRITIS, Active [facility] brad 12 WKS GESTATION 018 [facility] PYELONEPHRITIS Active [address] LABOR Active [address] Calculus [facility]/20[facility] [address] [place] [address] ABDOMINAL PAIN Active [address] Chlamydia Resolved Problem 10/23/2018 [facility] trachomatis [facility] Medical infection in Center (disorder) Urinary tract Resolved Problem 10/23/2018 [facility] infection in [address] [place] [address] Center (disorder) Refractory Active Problem 10/23/2018 Data migrated [place] migraine without 016 from [facility] Medical aura (disorder) Works on [facility] er 08/13/15. Graham has common migraine without [...] intractable migraine. Patient encounter Resolved Problem 10/23/2018 [facility] status (finding) [facility] Asthma (disorder) Resolved Problem 11/20/2017 [facility] Headache Resolved Problem 11/20/2017 [facility] ([facility] Center ACUTE Active [facility] PYELONEPHRITIS Medic al Center Medications Medication Details Route Status Patient Ordering Order Source Instructions Provider Date Docusate Sodium 100 mg = 1 cap, Active [place] 100 MG Oral PO, BID, PRN 2019 Medical Capsule Constipation, # Center 60 cap, 0 Refill(s), Pharmacy: [facility] [address] ibuprofen 600 mg 600 mg = 1 tab, Active [place] oral tablet PO, Q6H, PRN 2019 Medical Other -See Center Comment, # 60 tab, 0 Refill(s), Pharmacy: [facility] [id number] 1 tab, Route: Inactive [place] Multivitamins oral PO, Drug Form: 2019 Medical tablet TAB, Dosing Center Weight 100.455, kg, Daily, Start date: 10/21/18 9:00:00 CDT, Duration: 30 day, Stop date: 11/19/18 9:00:00 CDT M-M-R II Notes: (Same as: No Longer [facility] brad M-M-R II) Active 2019 Medical (bajmqln-oaent-v Center ubella virus vaccine 0.5 ml INJ VL) WASTE: F/P - Red; E -Red GIVE PRIOR TO DISCHARGE Ibuprofen Notes: (Same as: No Longer [facility] Motrin) "Do Not Active 2019 Medical Crush" Take Center with food. Bisacodyl Notes: (Same As: No Longer [facility] Dulcolax, Active 2019 Medical Correctol) (Do Center Not Crush) "Do Not Crush" Docusate Notes: (Same as: No Longer [facility] Colace) (Do Not Active 2019 Medical Crush) Center zolpidem Notes: (Same As: No Longer [facility] Ambien) Active 2019 Medical Center Methylergonovine Notes: (Same No Longer [facility] as:Methergine) Active 2019 Medical Center lanolin topical 1 appl, Route: No Longer [facility] TOP, PRN, Drug Active 2019 Medical form: OINT, PRN Center Other -See Comment, Start date: 10/20/18 15:35:00 CDT, Duration: 30 day, Stop date: 11/19/18 15:34:00 CDT Benzocaine 200 Notes: (Same As: No Longer [facility] MG/ML Topical Dermoplast) Active 2019 Medica l [place] [Dermoplast] WASTE: Aerosol - Center Return to Pharmacy FOR EXTERNAL USE ONLY Oxytocin 30 unit, 500 mL, No Longer [place] Rate: 42 ml/hr, Active 2019 Medical Infuse over: Center 11.9 hr, Dosing Weight 100.455, kg, Route: IV, Total Volume: 500 mL, Start date: 10/20/18 15:35:00 CDT, Duration: 2 day, Stop date: 10/22/18 15:34:00 CDT, Replace Every: 11.9 hr Lactated Ringers 1,000 mL, Rate: No Longer 10/20 [place] IV 1,000 mL 100 ml/hr, Active 2019 Medical Infuse over: 10 Center hr, Route: IV, Dosing Weight 100.455 kg, Total Volume: 1,000, Start date: 10/20/18 15:35:00 CDT, Duration: 30 day, Stop date: 11/19/18 15:34:00 CDT, 2.21, m2 Ondansetron Notes: (Same as: No Longer Servando Sarmiento) Active 2019 Medical MEDICATION WASTE Center Product Size: 4 mg Product Wasted: ___ mg Pitocin 10 unit, Route: Inactive Alistair mendiola IM, ONCE, Dosing 2019 Medical Weight 100.455, Center kg, Priority: STAT, Start date: 10/20/18 15:17:00 CDT, Stop date: 10/20/18 15:17:00 CDT Atropine Sulfate Notes: (Same As: No Longer 09/25 [place] 0.025 MG / Lomotil) MAX Active 2019 Medical Diphenoxylate Adult dose = 8 Daisha [...] (Same as: Inactive [place] Cervidil) 2019 [facility] Misoprostol Notes: (Same [place] Longer [place] as:Cytotec) Active 2019 Medical Take with food Center Famotidine Notes: (Same as: No Longer [facility] Pepcid) Can be Active 2019 Medical dilute in 5-10cc Center NS IVP: Slow IV push over at least 2 minutes. Carboprost Notes: (Same As: No Longer [facility] Hemabate) Active 2019 [facility] Citric Acid / Notes: (Same As: No Longer [facility] sodium citrate Bicitra, Active 2018 [facility] Cytra-2) [facility] citrate-citric acid (500-334 mg/5 mL): 1 mL contains sodium 1 mEq/mL and bicarbonate 1 mEq/mL Methylergonovine Notes: (Same No Longer [facility] as:Methergine) Active 2019 [facility] Acetaminophen 325 Notes: (Same as: No Longer [facility] MG / Hydrocodone [place] 325/5) Do Active 2019 [facility] Bitartrate 5 MG not exceed Cente r Oral Tablet 4gm/day of acetaminophen. Lidocaine Notes: No Longer [facility] Hydrochloride 10 Preservative Active 2018 Me dical MG/ML Injectable free. (Same as: [place] Solution Xylocaine MPF) Ondansetron Notes: (Same as: No Longer 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 Stadol) Active 2019 Medical MEDICATION WASTE Center [...] 0.0014 MEQ/ML / ml/hr, Infuse Active 2018 [facility] Potassium Chloride Over: 1 hr, C enter [...] CDT Sodium Chloride 1,000 mL, 1000 Inactive 11/17[facility] Servando 0.9% (Bolus) IV ml/hr, Infuse 2018 Co dicva Over: 1 hr, [place] Route: IV, 1,000, Drug form: INJ, ONCE, Priority: STAT, Dosing Weight 77.273 kg, Start date: 11/17/17 1:25:00 CDT, Stop date: 11/17/17 1:25:00 CDT Phenergan Notes: Do not Inactive 11/17[facility] [place] give IV push. 2018 Medical (Same as: [place] Phenergan) 30 ML Morphine Notes: (Same No Longer Servando Sulfate 5 MG/ML as:MORPhine Active 2018 [facility] Injection Sulfate) [place] Ondansetron 4 mg, Route: Inactive 11/17[facility] Ubaldo as IVP, Drug form: 2018 Medical INJ, ONCE, Center Dosing Weight 77.273, kg, Priority: STAT, Start date: 11/16/17 23:16:00 CDT, Stop date: 11/16/17 23:16:00 CDT Morphine 4 mg, Route: Inactive 11/17[facility] Servando IVP, ONCE, 2018 Medical Dosing Weight Center 77.273, kg, Priority: STAT, Start date: 11/16/17 23:16:00 CDT, Stop date: 11/16/17 23:16:00 CDT Allergies, Adverse Reactions, Alerts Substance Category Reaction Severity Reaction Status Date Comments S ource type Reported acetaminoph Assertion Hallucinat Drug Active Data [facility] en/butalbit ions/Chest allergy 6 migrated Medical al/caffeine Pain, from [facility] er <sup>1</sup Hallucinat eClinical > ions/Chest Works on Pain 08/11/16. Originally documented as Fioricet. Reaction: Hallucinati ons/Chest Pain Immunizations Immunization Date Given Site Status Last Comments Source Updated diphtheria/pertus 10/21/2018 Left completed [place] Al sis, acel/tetanus deltoid Co dical adult Center influenza virus 04/15/2018 Not Given [facility] vaccine, Medical inactivated<sup>1 Ce nter </sup> Results Order Name Results Value Reference Date Interpretation Comments Funmi rce Range HEMATOLOGY Hct 28.7 36.0 - 10/21 [facility] 48.0 /2019 [facility] HEMATOLOGY Hgb 9.7 12.0 - 10/21 [facility] 16. [facility] BLOOD BANK ABO/Rh O POS 10/20 [facility] RESULTS [facility] BLOOD BANK Antibody Scrn Negative 10/20 [place] as RESULTS (10/19/18 7:01 PM) [facility] CHEM PANEL LDH 183 98 - 192 10/20 [facility] CHEM PANEL Uric Acid 4.8 2.5 - 7.0 10/20 [facility] CHEM PANEL eGFR 125 10/20 Result [...] CHEM PANEL Creatinine 0.70 0.50 - 10/20 [facility] Lvl 1.40 [facility] CHEM PANEL ALT 14 0 - 65 10/20 [facility] CHEM PANEL AST 14 0 - 37 10/20 [facility] HEMATOLOGY WBC 12.2 3.7 - 10.4 10/20 [facility] HEMATOLOGY RBC 3.81 4.20 - 10/20 [facility] 5.40 [facility] HEMATOLOGY Hgb 11.4 12.0 - 10/20 [facility] 16. [facility] HEMATOLOGY Hct 34.2 36.0 - 10/20 [facility] 48.0 [facility] HEMATOLOGY MCV 89.9 80.0 - 10/20 [facility] 98.0 [facility] HEMATOLOGY RDW 13.2 11.5 - 10/20 [facility] 14.5 [facility] HEMATOLOGY Platelet 285 133 - 450 10/20 [facility] HEMATOLOGY MPV 8.7 7.4 - 10.4 10/20 [facility] HEMATOLOGY MCH 30.0 27.0 - 10/20 [facility] 31.0 [facility] HEMATOLOGY MCHC 33.4 32.0 - 10/20 [facility] 36.0 [facility] HEMATOLOGY Segs 78.7 45.0 - 10/20 [facility] 75.0 [facility] HEMATOLOGY Neutrophils # 9.6 1.5 - 8.1 10/20 [facility] HEMATOLOGY Lymphocytes 15.2 20.0 - 10/20 [facility] 40.0 [facility] HEMATOLOGY Monocytes 5.3 2.0 - 12.0 10/20 [facility] HEMATOLOGY Eosinophils 0.4 0.0 - 4.0 10/20 [facility] HEMATOLOGY Basophils 0.4 0.0 - 1.0 10/20 [facility]2018 [facility] HEMATOLOGY Monocytes # 0.6 0.0 - 0.8 10/20 [facility] HEMATOLOGY Lymphocytes # 1.9 1.0 - 5.5 10/20 [facility] [address] [facility] IMMUNOLOGY Treponemal Ab Non-Reactive Non 10/20 [facility] (10/19/18 7:01 PM) Center IMMUNOLOGY HIV. Negative Negative 10/20 [facility] (10/19/18 7:01 PM) [place] IMMUNOLOGY Hep Bs Ag Negative Negative 10/20 [facility] (10/19/18 7:01 PM) Center URINE AND UA Sq Epi Few /LPF Few /LPF 11/17 [facility] URINE AND UA Amorph Occasional None Seen 11[place] /HPF /HPF /2017 [facility] URINE AND UA Bacteria Few /HPF None [facility]en [facility] URINE AND UA RBC 11-20 /HPF 0 - 2 11/17 [facility] URINE AND UA WBC 0-2 /HPF None Seen 11/17 [facility] STOOL /HPF /2017 [facility] URINE AND UA Blood Moderate Negative 11/17 [facility] STOOL *ABN* [facility] (11/17/17 3:24 AM) [place] URINE AND UA Nitrite Negative Negative 11/17 [facility] (11/17/17 3:24 AM) [facility] URINE AND UA Leuk Est Trace Negative 11/17 [facility] STOOL *ABN* /2017 [facility] (11/17/17 3:24 AM) [place] URINE AND UA 0.2 0.1 - 1.0 11/17 [facility] Urobilinogen /2017 [facility] URINE AND UA Bili Negative Negative 11/17 [facility] *NA* /2017 [facility] (11/17/17 3:24 AM) [place] URINE AND UA Protein Negative Negative 11/17 [facility] STOOL (11/17/17 3:24 AM) [facility] URINE AND UA Ketones Trace Negative 11/17 [facility] *ABN* /2017 [facility] (11/17/17 3:24 AM) [place] URINE AND UA Glucose Negative Negative 11/17 [facility] (11/17/17 3:24 AM) [facility] URINE AND UA pH 8.0 5.0 - 8.0 11/17 [facility] URINE AND UA Turbidity Slight Cloudy Clear 11/17 [facility] (11/17/17 3:24 AM) [facility] URINE AND UA Color Yellow Yellow 11/17 [facility] *NA* /2017 [facility] (11/17/17 3:24 AM) [place] URINE AND UA Spec Grav 1.010 <=1.030 11/17 [facility] BLOOD BANK Antibody Scrn Negative 11/17 [facility] as RESULTS (11/16/17 11:59 PM) [facility] BLOOD BANK ABO/Rh O POS 11/17 [facility] RESULTS [facility] ELECTROLYTE AGAP 13.7 10.0 - 11/17 [facility] S 20.0 [facility] ELECTROLYTE eGFR 77 11/17 Result [facility] S /2017 Comment: The Medical eGFR is [...] ELECTROLYTE CO2 28 24 - 32 11/[address] ELECTROLYTE Calcium Lvl 10.3 8.5 - 10.5 11/17 [place] [facility] ELECTROLYTE Glucose Lvl 101 70 - 99 11/17 [facility]2017 [facility] ELECTROLYTE Chloride Lvl 103 95 - 109 11/17 [facility] as S 2017 [facility] ELECTROLYTE Sodium Lvl 141 135 - 145 11/17 [facility] ELECTROLYTE BUN 11 7 - 22 11/[address] ELECTROLYTE Creatinine 1.05 0.50 - 11/17 [facility] Lvl 1.40 [facility] ELECTROLYTE Potassium Lvl 3.7 3.5 - 5.1 11/17 [place] 2017 [facility] ENDOCRINOLO hCG Tot <1 11/17 [facility] GY [facility] HEMATOLOGY Platelet 281 133 - 450 11/[address] HEMATOLOGY MPV 8.7 7.4 - 10.4 11/[address] HEMATOLOGY WBC 9.7 3.7 - 10.4 11/[address] HEMATOLOGY RBC 4.51 4.20 - 11/17 [facility] 5.40 [facility] HEMATOLOGY Hgb 14.5 12.0 - 11/17 [facility] 16.0 [facility] HEMATOLOGY Hct 42.6 36.0 - 11/17 [place] 48.0 [facility] HEMATOLOGY MCV 94.4 80.0 - 11/17 [facility] 98.0 [facility] HEMATOLOGY RDW 12.8 11.5 - 11/17 [facility] 14.5 [facility] HEMATOLOGY MCHC 34.0 32.0 - 11/17 [facility] 36.0 [facility] HEMATOLOGY MCH 32.1 27.0 - 11/17 [place] 31.0 [facility] HEMATOLOGY Monocytes # 0.6 0.0 - 0.8 11/17 [facility] HEMATOLOGY Basophils # 0.1 0.0 - 0.2 11/17 [facility] /2018 [facility] HEMATOLOGY Eosinophils 0.4 0.0 - 4.0 11/17 [facility] HEMATOLOGY Basophils 0.6 0.0 - 1.0 11/17 [facility] HEMATOLOGY Segs-Bands # 6.8 1.5 - 8.1 11/17 [facility] HEMATOLOGY Lymphocytes 23.3 20.0 - 11/17 [facility] 40.0 [facility] HEMATOLOGY Monocytes 6.3 2.0 - 12.0 11/17 [facility] HEMATOLOGY Lymphocytes # 2.3 1.0 - 5.5 11/17 [place] [facility] HEMATOLOGY Segs 69.4 45.0 - 11/17 [facility] 75.0 [facility] Pathology Reports No Data Provided for This Section Diagnostic Reports Report Value Date Source Retroperitoneal Complete EXAM: US RENAL 04/20/2018 [facility] [place] [facility] US DATE: 04/20/2018 at 1005 hours Ce [...] contrast EXAM: Abdomen/Pelvis wo contrast MRI 04/15/2018 [facility] DATE: 04/15/2018 at 1247 hours. INDICATION: [...] w EXAMINATION: FIRST TRIMESTER PELVIC SONOGRAM 04/14/2018 [facility] transvag/Dop US HISTORY: Pelvic pain in the [...] CLINICAL HISTORY: - right flank pain 04/14/2018 [facility] US AGE: 18 years GENDER: Female TECHNIQUE: Grayscale and li mited doppler images of the kidneys were performed and product sales representative images were submitted for evaluation. [...] Transvag and EXAM: US PELVIS TRANSABDOMINAL 11/17/2017 [facility] Doppler US EXAM: US PELVIS TRANSVAGINAL WITH [...] Date Comments Source Respitory Rate 18 10/21/2018 [facility] Systolic (mm Hg) 104 10/21/2018 [facility] dical [place] Diastolic (mm Hg) 71 10/21/2018 [facility] Heart Rate 90 10/21/2018 [facility] Temperature Oral (F) 97.6 F 10/21/2018 [facility] Heart Rate 100 10/21/2018 [facility] Systolic (mm Hg) 123 10/21/2018 [facility] dical Center Diastolic (mm Hg) 82 10/21/2018 [facility] Respitory Rate 18 10/21/2018 [facility] Temperature Oral (F) 98.5 F 10/21/2018 [facility] Respitory Rate 18 10/20/2018 [facility] Heart Rate 105 10/20/2018 [facility] Systolic (mm Hg) 125 10/20/2018 [facility] dical Center Diastolic (mm Hg) 70 10/20/2018 [facility] Temperature Oral (F) 98.5 F 10/20/2018 [facility] Height 170.18 cm 10/19/2018 [facility] BMI Calculated 34.69 10/19/2018 [facility] Weight 100.455 10/19/2018 [facility] Systolic (mm Hg) 110 11/17/2017 [facility] dical Center Diastolic (mm Hg) 81 11/17/2017 [facility] Respitory Rate 18 11/17/2017 [facility] Heart Rate 80 11/17/2017 [facility] Temperature Oral (F) 98.4 F 11/17/2017 [facility] Systolic (mm Hg) 97 11/17[facility] [place] Diastolic (mm Hg) 66 11/17/2017 [facility] Respitory Rate 18 11/17/2017 [facility] Heart Rate 93 11/17/2017 [facility] Temperature Oral (F) 98.8 F 11/17/2017 [facility] BMI Calculated 26.68 11/17/2017 [facility] Weight 77.273 11/17/2017 [facility] Temperature Oral (F) 98.4 F 11/17/2017 [facility] Height 170.18 cm 11/17/2017 [facility] Respitory Rate 18 11/17/2017 [facility] Heart Rate 92 11/17/2017 [facility] Systolic (mm Hg) 134 11/17/2017 [facility] dical [place] Diastolic (mm Hg) 89 11/17/2017 [facility] Encounters Location Location Encounter Encounter Reason Attending ADM DC Stat us Source Details Type Number For Provider Date Date Visit Outpatient [id number] BHARGAV 01/03 Activ e [facility] Julio Cesar Gauthier [facility] Emergency [id number] Kaden 11/17 11/17 [facility] /2017 [facility] Inpatient [id number] Nisha Elke 10/19 10/22 [facility] /2018 [facility] Procedures No Data Provided for This Section Assessment and Plan No Data Provided for This Section Plan of Care No Data Provided for This Section Social History Social History Date Source Social History TypeResponse 04/15/2018 [facility] Substance Abuse Use: None.1 Alcohol Never Smoking [...]
--- OUTSIDE RECORDS SUMMARY | 2020-09-01 08:55 | XMS REPORT | Continuity of Care Document ---
:2000 Author Organization [facility] t Address [address] [place] [id number] Care Team Providers Name Role Phone Asked, [...] currently 00 (finding) Active 10/19/2018 Problem 10/23/2018 [facility] INDUCTION Diagnosis Active 2018-11-01 Memoria 10-19 10:10:00 l 00:00: Bow INDUCTION 00 Active 10/19/2018 [facility] PYELONEPHR Diagnosis Active 2018-04-28 Memoria ITIS, 04-19 13:42:00 l WKS 00:00: Julio Cesar GESTATION PYELONEPHR 00 ITIS, 12 WKS GESTATION Active 04/19/2018 [facility] PYELONEPHR Diagnosis Active 2018-04-19 Memoria ITIS 04-19 14:23:00 l 00:00: Julio Cesar PYELONEPHR 00 ITIS Active 04/19/2018 [facility] LABOR Diagnosis Active 2018-10-05 Mem oria 12-25 16:33:00 l LABOR 00:00: Bow 00 Active 12/25/2017 [facility] ABDOMINAL Diagnosis Active 2017-11-17 Memoria PAIN 11-16 00:34:00 l 00:00: Julio Cesar ABDOMINAL 00 PAIN Active 11/16/2017 [facility] Refractory Problem Active 2018-10-23 Mere emoria migraine 6 21:59:57 l without 00:00: Julio Cesar aura Refractory 00 (disorder) migraine without aura (disorder) Active 01/04/2016 Problem 10/23/2018 Data migrated from [employer] on 08/13/15. Graham has common migraine without [...] as Common migraine with intractabl e migraine. [facility] Asthma Problem Resolve 2017-11-20 Charles georgina (disorder) d 04:14:53 l Asthma Julio Cesar (disorder) Resolved Problem 11/20/2017 [facility] Headache Problem Resolve 2017-11-20 Me moria (finding) d 04:14:53 l Headache Richard n (finding) Resolved Problem 11/20/2017 [facility] ACUTE Diagnosis Active 2018-04-28 Mem oria PYELONEPHR 13:42:00 l ITIS ACUTE Bow PYELONEPHR ITIS Active [facility] Calculus Problem 2017-11-20 2017-11-20 Memoria of kidney 11-17 04:14:53 04:14:53 l Calculus 05:00: Richard n of kidney 00 11/17/2017 11/20/2017 [facility] History of Past Illness Condition Condition Condition Status Onset Resolution Last Treating Co mments Source Name Details Category Date Date Treatment Clinician Date Chlamydia Problem Resolve 2018-10-23 2018-10-23 Memoria trachomati d 1- 21:59:57 21:59:57 l s 00:00: Julio Cesar infection Chlamydia 00 in trachomati s (disorder) infection in (disorder) Resolved 07/27/2017 Problem 10/23/2018 [facility] Urinary Problem Resolve 2017-2018-10-23 2018-10-23 Memoria tract d 07-27 21:59:57 21:59:57 l infection Urinary 00:00: Annelise alba in tract 00 infection (disorder) in (disorder) Resolved 07/27/2017 Problem 10/23/2018 [facility] Patient Problem Resolve 1997-0 2018-10-23 2018-10-23 Memoria encounter d 07-27 21:59:57 21:59:57 l status Patient 00:00: Julio Cesar (finding) encounter 00 status (finding) Resolved 07/27/1997 Problem 10/23/2018 infant [facility] Allergies, Adverse Reactions, Alerts Allergy Allergy Status Severity Reaction(s) Onset Inactive Treating Comm ents Source Name Type Date Date Clinician Ceftriax Propensi Active Hives [place] one ty to 04-11 Methodi adverse 00:00: st reaction 00 s to drug acetamin acetamin Active Memori a ophen/bu ophen/bu 6-10 l talbital talbital 05:00: Richard n /caffein /caffein 00 e<sup>1< e<sup>1< /sup> /sup> Social History Social Habit Start Date Stop Date Quantity Comments Source ASSERTION 2019-01-23 [facility] ist 00:00:00 Sex Assigned At [facility] ethodist Tobacco use and 2019-04-11 2019-04-11 Never used [facility] ethodist exposure 00:00:00 00:00:00 Alcohol intake 2019-04-11 2019-04-11 Ex-drinker [facility] thodist 00:00:00 00:00:00 (finding) Social History 2018-04-15 2018-04-15 [facility] 03:34:00 03:34:00 Smoking Status Start Date Stop Date Source Never smoker [facility] Medications Ordered Filled Start Stop Current Ordering [...] on, # 60 cap, 0 Refill(s), Pharmacy: [facility] [place] [address] ibuprofen Yes 600 mg = 1 Me moria 600 mg oral 3-29 tab, PO, l tablet 02:39: Q6H, PRN Julio Cesar 00 Other -See Comment, # 60 tab, 0 Refill(s), Pharmacy: [facility] [place] [address] Docusate Yes 100 mg = 1 Mem oria Sodium 100 3-29 cap, PO, l MG Oral 02:39: BID, PRN Richard n Capsule 00 Constipati on, # 60 cap, 0 Refill(s), Pharmacy: [facility] [place] [address] ibuprofen Yes 600 mg = 1 Me moria 600 mg oral 3-29 tab, PO, l tablet 02:39: Q6H, PRN Bow 00 Other -See Comment, # 60 tab, 0 Refill(s), Pharmacy: [facility] [place] [address] No 1 tab, Memoria Multivitami 10-21 Route: [...] Memoria 10-20 (Same As: l 20:35: Ambien) Bow 00 Methylergon No Notes: Charles georgina ovine 10-20 (Same l 20:35: as:Metherg Julio Cesar 00 ine) lanolin No 1 appl, Memoria topical 10-20 Route: l 20:35: TOP, PRN, Bow 00 Drug form: OINT, PRN Other -See Comment, Start date: 10/20/18 15:35:00 CDT, Duration: 30 day, Stop date: 11/19/18 15:34:00 CDT Benzocaine No Notes: Memor ia 200 MG/ML 10-20 (Same As: l Topical 20:35: Dermoplast Herm alba Mark ) WASTE: [Dermoplast Aerosol - ] Return to Pharmacy FOR EXTERNAL USE ONLY Oxytocin No 30 unit, Memor ia 10-20 500 mL, l 20:35: Rate: 42 Julio Cesar 00 ml/hr, Infuse over: 11.9 hr, Dosing Weight 100.455, kg, Route: IV, Total Volume: 500 mL, Start date: 10/20/18 15:35:00 CDT, Duration: 2 day, Stop date: 10/22/18 15:34:00 CDT, Replace Every: 11.9 hr Lactated 2019-0 No 1,000 mL, Charles georgina Ringers IV 10-20 Rate: 100 l 1,000 mL 20:35: ml/hr, Bow 00 Infuse over: 10 hr, Route: IV, [...] Memoria 10-20 (Same as: l 20:35: Colace) Bow (Do Not Crush) zolpidem No Notes: Memoria - (Same As: l 20:35: Ambien) Bow Methylergon No Notes: Charles georgina ovine 10-20 (Same l 20:35: as:Metherg Bow ine) lanolin No 1 appl, Memoria topical 10-20 Route: l 20:35: TOP, PRN, Julio Cesar Drug form: OINT, PRN Other -See Comment, Start date: 10/20/18 15:35:00 CDT, Duration: 30 day, Stop date: 11/19/18 15:34:00 CDT Benzocaine No Notes: Memor ia 200 MG/ML 10-20 (Same As: l Topical 20:35: Dermoplast Herm alba Mark 00 ) WASTE: [Dermoplast Aerosol - ] Return to Pharmacy FOR EXTERNAL USE ONLY Oxytocin No 30 unit, Memor ia - 500 mL, l 20:35: Rate: 42 Bow 00 ml/hr, Infuse over: 11.9 hr, Dosing [...] mg Pitocin No 10 unit, Memori a 3-27 Route: IM, l 20:17: ONCE, Dosing Weight 100.455, kg, Priority: STAT, Start date: 10/20/18 15:17:00 CDT, Stop date: 10/20/18 15:17:00 CDT Pitocin No 10 unit, Memori a 3- Route: IM, l 20:17: ONCE, Dosing Weight [...] ia 3-27 500 mL, l 11:30: Rate: Bow 00 Titrate, Dosing Weight 100.455, kg, Route: IV, Total Volume: 500 mL, Start date: 10/20/18 6:30:00 CDT, Duration: 2 day, Stop date: 10/22/18 6:29:00 CDT, Replace Every: 24 hr Oxytocin No 30 unit, Memor ia 3-27 500 mL, l 11:30: Rate: Bow 00 Titrate, Dosing Weight 100.455, kg, Route: IV, Total Volume: 500 mL, Start date: 10/20/18 6:30:00 CDT, Duration: 2 day, Stop date: 10/22/18 6:29:00 CDT, Replace Every: 24 hr Remove - No Notes: Memoria dinoproston 3-27 Vaginal l e 11:00: insert: to Bow (Cervidil) 00 be removed insert 1 hour prior to oxytocin administra tion or 12 hours after insertion. Remove - No Notes: Memoria dinoproston 3-27 Vaginal l e 11:00: insert: to Bow (Cervidil) 00 be removed insert 1 hour prior to oxytocin administra tion or 12 hours after insertion. Cervidil No Notes: Memoria 3-27 (Same as: l 02:00: Cervidil) Julio Cesar 00 Cervidil No Notes: Memoria 3-27 (Same as: l 02:00: Cervidil) Bow Misoprostol 2018- No Notes: Charles georgina 3-27 (Same l 00:00: as:Cytotec Julio Cesar 00 ) Take with food Famotidine No Notes: Memor ia 3-27 (Same as: l 00:00: Pepcid) Bow 00 Can be dilute in 5-10cc NS IVP: Slow IV push over at least 2 minutes. Carboprost 2018- No Notes: Memor ia 3-27 (Same As: l 00:00: Hemabate) Julio Cesar 00 Citric Acid 2018- No Notes: Charles georgina / sodium 3-27 (Same As: l citrate 00:00: BicitraRichard n 00 Cytra-2) Sodium citrate-ci tric acid (500-334 mg/5 mL): 1 mL contains sodium 1 mEq/mL and bicarbonat e 1 mEq/mL Methylergon 2018- No Notes: Charles georgina ovine 3-27 (Same l 00:00: as:Metherg Bow 00 ine) Misoprostol No Notes: Charles georgina 3-27 (Same l 00:00: as:Cytotec Bow 00 ) Take with food Famotidine No Notes: Memor ia 3-27 (Same as: l 00:00: Pepcid) Can be dilute in 5-10cc NS IVP: Slow IV push over at least 2 minutes. Carboprost No Notes: Memor ia 3-27 (Same As: l 00:00: Hemabate) Bow 00 Citric Acid No Notes: Charles georgina / sodium 3-27 (Same As: l citrate 00:00: BicitrRichard márquez n 00 Cytra-2) Sodium citrate-ci tric acid (500-334 mg/5 mL): 1 mL contains sodium 1 mEq/mL and bicarbonat e 1 mEq/mL Methylergon No Notes: Charles georgina ovine 3-27 (Same l 00:00: as:Metherg Julio Cesar 00 ine) Acetaminoph No Notes: Charles georgina en 325 MG / 3-26 (Same as: l Hydrocodone 23:50: [place] Catherine nn Bitartrate 00 325/5) Do 5 [...] NOT l 23:50: USE IN Julio Cesar 00 [employer] (Same As: [place]) Butorphanol No Notes: Charles georgina 3-26 (Same As: l 23:50: Stadol) MEDICATION WASTE Product Size: 2 mg Product Wasted: __1_ mg Oxytocin No 30 unit, Memor ia 3-26 500 mL, l 23:50: Rate: 42 Bow 00 ml/hr, Infuse over: 11.9 hr, Dosing Weight 100.455, kg, Route: IV, Total Volume: 500 mL, Start date: 10/19/18 18:50:00 CDT, Duration: 2 day, Stop date: 10/21/18 18:49:00 CDT, Replace Every: 11.9 hr Calcium 0 No 1,000 mL, Memor ia Chloride 3-26 1,000 l 0.0014 23:50: ml/hr, Bow MEQ/ML / 00 Infuse Potassium Over: 1 [...] a 3-26 (Same as: l 23:50: Motrin) Bow 00 "Do Not Crush" Take with food. Acetaminoph No Notes: Charles georgina en 325 MG / 3-26 (Same as: l Hydrocodone 23:50: [place] Catherine nn Bitartrate 00 325/5) Do 5 [...] 3-26 DO NOT l 23:50: USE IN [employer]NA[employer] AREA (Same As: Brethine) Butorphanol No Notes: Charles georgina 3-26 (Same As: l 23:50: Stadol) MEDICATION WASTE Product Size: 2 mg Product Wasted: __1_ mg Oxytocin No 30 unit, Memor ia 3-26 500 mL, l 23:50: Rate: 42 Bow 00 ml/hr, Infuse over: 11.9 hr, Dosing [...] a 4-24 Route: l 07:05: IVP, Drug Bow 00 form: INJ, ONCE, Dosing Weight 77.273, kg, Priority: STAT, Start date: 11/17/17 2:05:00 CDT, Stop date: 11/17/17 2:05:00 CDT Ketorolac 2018-0 No 15 mg, Memori a 4-24 Route: l 07:05: IVP, Drug Bow 00 form: INJ, ONCE, Dosing Weight 77.273, kg, Priority: STAT, Start date: 11/17/17 2:05:00 CDT, Stop date: 11/17/17 2:05:00 CDT Sodium 2018-0 No 1,000 mL, Memori a Chloride 4-24 1000 l 0.9% 06:25: ml/hr, Bow (Bolus) IV 00 Infuse Over: 1 hr, [...] 4-24 not give l 05:35: IV push. Bow 00 (Same as: Phenergan) Phenergan 0 No Notes: Do Mem oria 4-24 not give l 05:35: IV push. Bow 00 (Same as: Phenergan) 30 ML No [...] ia 4-24 Route: l 04:16: IVP, Drug Bow form: INJ, ONCE, Dosing Weight 77.273, kg, Priority: STAT, Start date: 11/16/17 23:16:00 CDT, Stop date: 11/16/17 23:16:00 CDT Morphine 2018-0 No 4 mg, Memoria 424 Route: l 04:16: IVP, ONCE, Julio Cesar 00 Dosing Weight 77.273, kg, Priority: STAT, Start date: 11/16/17 23:16:00 CDT, Stop date: 11/16/17 23:16:00 CDT Vital Signs Vital Name Observation Time Observation Value Comments Source Respitory Rate 2018-10-21 13:54:00 Memori al Julio Cesar Systolic (mm Hg) 2018-10-21 13:54:00 Charles rial Julio Cesar Diastolic (mm Hg) 2018-10-21 13:54:00 Mem orial Bow Heart Rate 2018-10-21 13:54:00 Memorial Bow Temperature Oral (F) 2018-10-21 13:54:00 97.6 F Memorial [place] Heart Rate 2018-10-21 05:00:00 Memorial Julio Cesar Systolic (mm Hg) 2018-10-21 05:00:00 Charles rial Bow Diastolic (mm Hg) 2018-10-21 05:00:00 Mem orial Bow Respitory Rate 2018-10-21 05:00:00 Memori al Julio Cesar Temperature Oral (F) 2018-10-21 05:00:00 98.5 F Memorial [place] Respitory Rate 2018-10-20 23:03:00 Memori al Julio Cesar Heart Rate 2018-10-20 23:03:00 Memorial [place] Systolic (mm Hg) 2018-10-20 23:03:00 Charles rial Bow Diastolic (mm Hg) 2018-10-20 23:03:00 Mem orial Julio Cesar Temperature Oral (F) 2018-10-20 23:03:00 98.5 F Memorial Julio Cesar Height 2018-10-19 23:47:00 170.18 cm Memorial Julio Cesar BMI Calculated 2018-10-19 23:47:00 Memori al Bow Weight 2018-10-19 23:47:00 Memorial Bow Systolic (mm Hg) 2017-11-17 09:02:00 Charles rial Julio Cesar Diastolic (mm Hg) 2017-11-17 09:02:00 Mem orial Julio Cesar Respitory Rate 2017-11-17 09:02:00 Memori al Julio Cesar Heart Rate 2017-11-17 09:02:00 Memorial Julio Cesar Temperature Oral (F) 2017-11-17 09:02:00 98.4 F Memorial Julio Cesar Systolic (mm Hg) 2017-11-17 06:22:00 Charles rial Bow Diastolic (mm Hg) 2017-11-17 06:22:00 Mem orial Bow Respitory Rate 2017-11-17 06:22:00 Memori al Julio Cesar Heart Rate 2017-11-17 06:22:00 Memorial [place] Temperature Oral (F) 2017-11-17 06:22:00 98.8 F Memorial Julio Cesar BMI Calculated 2017-11-17 04:01:00 Memori al Julio Cesar Weight 2017-11-17 04:01:00 Memorial Bow Temperature Oral (F) 2017-11-17 04:01:00 98.4 F Memorial Julio Cesar Height 2017-11-17 04:01:00 170.18 cm Memorial Bow Respitory Rate 2017-11-17 04:01:00 Memori al Bow Heart Rate 2017-11-17 04:01:00 Memorial Julio Cesar Systolic (mm Hg) 2017-11-17 04:01:00 Charles rial Bow Diastolic (mm Hg) 2017-11-17 04:01:00 Mem orial Julio Cesar Procedures This patient has no known procedures. Plan of Care Planned Activity Planned Date Details Comments Source Future Scheduled 2020-02-25 INFLUENZA VACCINE [place] [facility] 00:00:00 [code = INFLUENZA VACCINE] Future Scheduled 2019 Screening for [facility]odist Test 00:00:00 malignant neoplasm of cervix (procedure) [code = 668839918] Future Scheduled 2016 Hepatitis C [facility] 00:00:00 screening (procedure) [code = 075324642] Future Scheduled 2014 CHLAMYDIA SCREENING [place] [facility] 00:00:00 [code = CHLAMYDIA SCREENING] Future Scheduled 2014 COVID-19 VACCINE (1 [place] [facility] 00:00:00 of 2) [code = COVID-19 VACCINE (1 of 2)] Encounters Start End Encounter Admission Attending Care Care Encounter Source Date/Time Date/Time Type Type Clinicians Facility Department ID 2019-10-12 Inpatient U [facility] [id number] [facility] 18:43:00 2020-04-10 2020-04-10 Emergency E [facility] [id number] [facility] 15:48:00 15:48:00 2019-09-29 2019-09-29 Emergency E [facility] [id number] [facility] 16:39:00 16:39:00 2019-09-23 2019-09-23 Emergency E [facility] [id number] [facility] 19:02:00 19:02:00 2019-08-26 2019-08-26 Emergency E [facility] [id number] [facility] 16:24:00 16:24:00 2019-04-05 2019-04-05 [id number] 00:00:00 00:00:00 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 [facility] [id number] MATERNAL [id number] & CHILD 116 [facility] 2019-03-31 2019-03-31 [facility] [id number] 13:56:28 15:24:21 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 Visit [facility] [id number] MATERNAL [id number] & CHILD 116 [facility] 2018-10-19 2018-10-21 Outpatient Nisha Bedoya [facility] [id number] 17:53:00 22:17:00 2018-10-19 2018-10-21 Outpatient Nisha Bedoya [facility] [id number] 17:53:00 22:17:00 2017-11-16 2017-11-17 Outpatient Jeremiah [facility] [id number] 23:00:00 04:17:00 Kaden 00 2017-11-16 2017-11-17 Outpatient Shahbazmichaela [facility] [id number] 23:00:00 04:17:00 Kaden 00 Results Test Description Test Time Test Comments Results Result [facility] Erasmo HEMATOLOGY 2018-10-21 28.7 [facility] 11:36:00 Bow HEMATOLOGY 2018-10-21 9.7 [facility] 11:36:00 Bow HEMATOLOGY 2018-10-21 28.7 [facility] 11:36:00 Bow HEMATOLOGY 2018-10-21 9.7 [facility] 11:36:00 Bow BLOOD BANK RESULTS 2018-10-20 Negative Memori al 00:01:00 (10/19/18 7:01 Bow PM) CHEM PANEL 2018-10-20 183 Memorial 00:01:00 Bow CHEM PANEL 2018-10-20 4.8 Memorial 00:01:00 Julio Cesar CHEM PANEL 2018-10-20 125 [facility] 00:01:00 Bow CHEM PANEL 2018-10-20 0.70 Memorial 00:01:00 Bow CHEM PANEL 2018-10-20 14 Memorial 00:01:00 Julio Cesar CHEM PANEL 2018-10-20 14 Memorial 00:01:00 Bow HEMATOLOGY 2018-10-20 12.2 Memorial 00:01:00 Bow HEMATOLOGY 2018-10-20 3.81 Memorial 00:01:00 Bow HEMATOLOGY 2018-10-20 11.4 Memorial 00:01:00 Julio Cesar HEMATOLOGY 2018-10-20 34.2 Memorial 00:01:00 Bow HEMATOLOGY 2018-10-20 89.9 Memorial 00:01:00 Bow HEMATOLOGY 2018-10-20 13.2 Memorial 00:01:00 Bow HEMATOLOGY 2018-10-20 285 [facility] 00:01:00 Bow HEMATOLOGY 2018-10-20 8.7 Memorial 00:01:00 Bow HEMATOLOGY 2018-10-20 00:01:00 Test Item Value Reference Range Interpretation Comme nts MCH (test code = MCH) 30.0 pg 27.0-31.0 [facility] HivskvaRPSFDAURRW4709-04-49 00:01:0033.4[facility] HermannHEMATOLOGY 2018-10-20 00:01:0078.7[facility] QcdpaqvFATURPIMHM9394-98-23 00:01:009.6[facility] PnidkumMYRLGEKJTB4520-07-28 00:01:0015.2[facility] PdzvigwYPUSSXJCGA3260-83-27 00:01:005.3[facility]orial YpaiwkvCOUBZBVJIN8496-37-02 00:01:000.4[facility] Bow NBDTNCJSCY6477-90-84 00:01:000.4[facility] WjecefiXBPNISHCGM4083-05-81 00:01:000.6 Memorial HceujmdEALAYAUJDW7901-33-95 00:01:001.9[facility] HermannIMMUNOLOGY 2018-10-20 00:01:00Non-Reactive *NA*(3/26/19 7:01 PM)[facility] HermannIMMUNOLOGY 2018-10-20 00:01:00Negative *NA*(10/19/18 7:01 PM)[facility]annIMMUNOLOGY 2018-10-20 00:01:00Negative *NA*(10/19/18 7:01 PM)[facility] HermannBLOOD BANK OJRGYLS4994-48-30 00:01:00Negative (10/19/18 7:01 PM)[facility] HermannCHEM PANEL 2018-10-20 00:01:49292Pauzblax HermannCHEM JJWTJ9055-32-43 00:01:004.8[facility] HermannCHEM VWXCH3621-86-20 00:01:20062Dicmuxzz HermannCHEM RTXHU5991-73-04 00:01:000.70[facility] HermannCHEM ADURT1019-87-19 00:01:0014[facility] HermannCHEM BNPRH1686-33-31 00:01:0014[facility] TfoavwcLKZDXIGVLY6660-15-71 00:01:0012.2 Memorial ZkykfwqCCNZQYOKCA7727-99-34 00:01:003.81[facility] HermannHEMATOLOGY 2018-10-20 00:01:0011.4[facility] IukrekzMFWGFUGFSP9490-87-05 00:01:0034.2[facility] XtnjztmECCSCHDZDJ2896-56-20 00:01:0089.9[facility]orial ZmhjoutFKSPQAGZTT6503-61-81 00:01:0013.2[facility] VncipebQWFKRYIZAS6055-16-13 00:01:68046Mgtnlvux Bow WDROXRCOVX8470-47-43 00:01:008.7[facility]orial NkyqsrvTPRDNZSSYE2055-53-59 00:01:00 Test Item Value Reference Range Interpretation Comments MCH (test code = MCH) 30.0 pg 27.0-31.0 Memorial UomfjsnOIDTXHXVKA3719-68-08 00:01:0033.4[facility] HermannHEMATOLOGY 2018-10-20 00:01:0078.7[facility] QalrfyjVYUOOQCFNN8886-45-76 00:01:009.6[facility] PfcyzylWISLWAMYGL5796-92-26 00:01:0015.2[facility]orial TxlzskcWXOOCAKRAU8436-37-09 00:01:005.3[facility] XjcyvjnITTPLUHPXF9332-13-57 00:01:000.4[facility] Julio Cesar VCRGFTVARJ0154-89-95 00:01:000.4[facility] SbycydsDRGPPTWEZN3871-14-23 00:01:000.6 Memorial JnxuhkhYJBLEDLRLT3203-96-71 00:01:001.9[facility] HermannIMMUNOLOGY 2018-10-20 00:01:00Non-Reactive *NA*(10/19/18 7:01 PM)[facility] HermannIMMUNOLOGY 2018-10-20 00:01:00Negative *NA*(10/19/18 7:01 PM)[facility] HermannIMMUNOLOGY 2018-10-20 00:01:00Negative *NA*(10/19/18 7:01 PM)[facility]annURINE AND STOOL 2017-11-17 08:24:15Moderate *ABN*(11/17/17 3:24 AM)[facility] XEGOX4620-65-36 08:24:15Negative (11/17/17 3:24 AM)[facility] UYTSI8288-84-49 08:24:15Trace *ABN*(11/17/17 3:24 AM)[facility] VBPNB4456-94-20 08:24:150.2[facility] XPFMT0903-63-08 08:24:15 Negative *NA*(11/17/17 3:24 AM)[facility] INOGC2090-36-84 08:24:15 Negative (11/17/17 3:24 AM)[facility] JOKFN9563-62-35 08:24:15 Trace *ABN*(11/17/17 3:24 AM)[facility] [id number] 08:24:15 Negative (11/17/17 3:24 AM)[facility] [id number] 08:24:15 Test Item Value Reference Range Interpretation Comments UA pH (test code = UA pH) 8.0 1 5.0-8.0 [facility] JMBZO1869-69-78 08:24:15Slight Cloudy (11/17/17 3:24 AM)[facility] KHIRK2057-08-67 08:24:15Yellow *NA*(11/17/17 3:24 AM)[facility] [id number] 08:24:15 Test Item Value Reference Range Interpretation Comments UA Spec Grav (test code = UA Spec 1.010 1 Grav) [facility] IESMN9740-56-34 08:24:15Moderate *ABN*(11/17/17 3:24 AM)[facility] ZTPZN9069-97-36 08:24:15Negative (11/17/17 3:24 AM) [facility] IEPZL5138-67-62 08:24:15Trace *ABN*(11/17/17 3:24 AM) [facility] HKRRO7234-59-33 08:24:150.2[facility] OVGEH1425-80-86 08:24:15Negative *NA*(11/17/17 3:24 AM)[facility] YPYDH7077-23-27 08:24:15Negative (11/17/17 3:24 AM)[facility] ZQKDF2763-77-38 08:24:15Trace *ABN*(11/17/17 3:24 AM)[facility] WWWAQ6522-60-62 08:24:15Negative (11/17/17 3:24 AM)[facility] [id number] 08:24:15 Test Item Value Reference Range Interpretation Comments UA pH (test code = UA pH) 8.0 1 5.0-8.0 [facility] [id number] 08:24:15Slight Cloudy (11/17/17 3:24 AM)[facility] YGMEU8853-56-53 08:24:15Yellow *NA*(11/17/17 3:24 AM)[facility] MEXIY6577-25-76 08:24:15 Test Item Value Reference Range Interpretation Comments UA Spec Grav (test code = UA Spec 1.010 1 Grav) [facility]annBLOOD BANK [id number] 04:59:00Negative (11/16/17 11:59 PM) [facility]annBL[facility]OD BANK NJFIIZJ7253-39-43 04:59:00Negative (11/16/17 11:59 PM) Memorial OimqrklCFOVKFLDLIYU9486-37-07 04:24:0013.7[facility] HermannELECTROLYTES 2017-11-17 04:24:0077[facility] NoqjmvjRBORSBQCOLCV5597-68-71 04:24:0028[facility] KnigtcjEPBYMLMUDVOO8229-82-14 04:24:0010.3[facility]orial FbowlgzIDVEXMSMZPIO8499-62-98 04:24:01336Bkpwjjyk AfysvqlVIOSVFSIGRCD9762-63-31 04:24:63209Zrkaxzkd Julio Cesar IRUAPPPDGBGH4104-28-73 04:24:52708Orrkfciw NtfkwebXNEERDNAGZSU4202-34-02 04:24:0011[facility] JpvvuscFCAYXFICFSBD6662-13-59 04:24:001.05[facility] Bow TNXIZRMRFSGF3803-69-54 04:24:003.7[facility] NalxlsyQCSWNWFUIIQPC8248-49-59 04:24:00<1[facility] HjktdnfCYAVGPWDKZ1969-70-19 04:24:24869Sejjsgwg Bow EXJULWLNVQ4947-84-32 04:24:008.7[facility] HiqihafWOEQFYJYFL4347-16-29 04:24:009.7 [facility] ObgxogaTZNXHSMTJY2894-38-30 04:24:004.51[facility]OLOG[facility] 2017-11-17 04:24:0014.5[facility] DzelthoDJCZHRLVPL4097-57-87 04:24:0042.6[facility] VkoekkkFZHYOUNWPU3710-39-47 04:24:0094.4[facility] JivfkrkXAHQPBEKTW3367-28-05 04:24:0012.8[facility] OqabylaTMKMLIKRPH6194-46-93 04:24:0034.0[facility] SNJEKERPPN6887-27-25 04:24:00 Test Item Value Reference Range Interpretation Comments MCH (test code = MCH) 32.1 pg 27.0-31.0 [facility] CckqyafVIDTVSICVF5301-61-29 04:24:000.6[facility]annHEMATOLOGY 2017-11-17 04:24:000.1[facility] RchrblhIPJDPVZMFY7979-93-09 04:24:000.4[facility] IwmownaWDETTFRVQF2422-09-04 04:24:000.6[facility] CgmitlbKTRRSBEZFP7531-87-57 04:24:006.8[facility] BoloqqcCMUANQRFPL8044-17-53 04:24:0023.3[facility] UYYSOLFXYY0228-00-89 04:24:006.3[facility] JpkirpcYWJQJEKXYV1995-07-71 04:24:002.3 [facility] NlrarwfDGBHYKIURE0803-68-51 04:24:0069.4[facility] HermannELECTROLYTES 2017-11-17 04:24:0013.7[facility] VuiehzcHHDZHVJHHZYT9068-63-42 04:24:0077[facility] HlexcdvYAWKAAWIYHUD2001-89-74 04:24:0028[facility] GckcozrHMZVZJUAWDXV7851-30-10 04:24:0010.3[facility] KjrjttgNZXQNRQXREMA8947-32-26 04:24:78749Lqtdxkbf Bow LJPUACUMPEKX9068-40-27 04:24:79830Kzpvthiv NpvzgrtBBOUDKAREGRO4242-90-97 04:24:28238Fxpoilal EhpicqgGTACMMWNGLZT1873-26-02 04:24:0011[facility] JMFWKVBMFISF0921-68-34 04:24:001.05[facility] NvidpdfREANPETGSLFQ6489-68-43 04:24:003.7[facility] IdjqdyxHBETEUSZQHKIA1167-61-96 04:24:00<1[facility] YLMSEBBSLQ8096-89-29 04:24:87339Guhnywir YefjcbsBDGMEZXIBT4335-10-16 04:24:008.7 [facility] OpdamnqRKOHZCIRIK1328-98-71 04:24:009.7[facility]annHEMATOLOGY 2017-11-17 04:24:004.51[facility] SkjezseMKSZFJMMND6233-96-19 04:24:0014.5[facility] FwbhfasYYELKOFOWP6137-70-68 04:24:0042.6[facility] [id number] 04:24:0094.4[facility] [id number] 04:24:0012.8[facility] [id number] 04:24:0034.0[facility] [id number] 04:24:00 Test Item Value Reference Range Interpretation Comments MCH (test code = MCH) 32.1 pg 27.0-31.0 [facility] [id number] 04:24:000.6[facility]annHEMATOLOGY 2017-11-17 04:24:000.1[facility] [id number] 04:24:000.4[facility] [id number] 04:24:000.6[facility] [id number] 04:24:006.8[facility] [id number] 04:24:0023.3[facility] [id number] 04:24:006.3[facility] [id number] 04:24:002.3 [facility] [id number] 04:24:0069.4[facility]
--- NOTE | 2020-09-01 09:30 | ER ---
Nurse's Notes [facility] Name: Graham Aguilar Age: 20 yrs Sex: Female : 2000 Arrival Date: 09/01/2020 Time: 08:52 Bed 18 Private MD: Diagnosis: Vaginitis, vulvitis and vulvovaginitis in diseases classified elsewhere Presentation: 09/01 09:06 Chief complaint: Patient states: "I am having a headache and vaginal pain. the headache jd3 has neem going on for a while, but the main thing that brought me in is the vaginal pain. It has been going on for almost a week now and it feels like a burning feeling as if I have an open cut or something.". Coronavirus screen: At this time, the client does not indicate any symptoms associated with coronavirus-19. Ebola Screen: Patient negative for fever greater than or equal to 101.5 degrees Fahrenheit, and additional compatible Ebola Virus Disease symptoms. Initial Sepsis Screen: Does the patient meet any 2 criteria? No. Patient's initial sepsis screen is negative. Does the patient have a suspected source of infection? No. Patient's initial sepsis screen is negative. Risk Assessment: Do you want to hurt yourself or someone else? Patient reports no desire to harm self or others. Onset of symptoms was September 01, 2020. 09:06 Method Of Arrival: Ambulatory j 09:06 Acuity: MOSHE 3 jd3 Triage Assessment: 09:18 Headache History: The patient has had previous headaches and this one is similar to jd3 previous episodes. Pain: Complains of pain in head Pain currently is 10 out of 10 on a pain scale. Pain began gradually, Also complains of inability to work. 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 - Social history:: Smoking status: Patient denies any tobacco usage or history of. - Family history:: not pertinent. - Hospitalizations: : No recent hospitalization is reported. Screenin:18 Abuse screen: Denies threats or abuse. Nutritional screening: No deficits noted. jd3 Tuberculosis screening: No symptoms or risk factors identified. Fall Risk Ambulatory Aid- None/Bed Rest/Nurse Assist (0 pts). Gait- Normal/Bed Rest/Wheelchair (0 pts) Mental Status- Oriented to own ability (0 pts). Total Rivera Fall Scale indicates No Risk (0-24 pts). Assessment: 09:15 General: Appears in no apparent distress. uncomfortable, Behavior is calm, cooperative, jd3 appropriate for age. Pain: Complains of pain in face and vaginal Quality of pain is described as burning, pressure. Neuro: Level of Consciousness is awake, alert, obeys commands, Oriented to person, place, time, situation, Moves all extremities. Full function Gait is steady, Speech is normal, Facial symmetry appears normal, Pupils are PERRLA, Intact. Cardiovascular: Denies chest pain, Capillary refill < 3 seconds Patient's skin is warm and dry. Respiratory: Airway is patent Respiratory effort is even, unlabored, Respiratory pattern is regular, symmetrical, Denies cough, shortness of breath. GI: No signs and/or symptoms were reported involving the gastrointestinal system. : Urine is clear, Reports burning with urination, vaginal pain. EENT: No signs and/or symptoms were reported regarding the EENT system. Derm: Skin is intact, Skin is dry, Skin is normal, Skin temperature is warm. Musculoskeletal: Circulation, motion, and sensation intact. Range of motion: intact in all extremities. 09:41 Reassessment: Patient appears in no apparent distress at this time. Patient and/or jd3 family updated on plan of care and expected duration. Pain level reassessed. Patient is alert, oriented x 3, equal unlabored respirations, skin warm/dry/pink. reported understanding of discharge instructions, even and steady gait upon discharge. Vital Signs: 09:07 BP 114 / 84; Pulse 89; Resp 16 S; Temp 98.1(TE); Pulse Ox 99% on R/A; Weight 92.99 kg jd3 (R); Height 5 ft. 6 in. (167.64 cm) (R); Pain 10/10; 09:07 Body Mass Index 33.09 (92.99 kg, 167.64 cm) [facility] ED Course: 08:52 Patient arrived in ED. ag5 08:56 Paresh Ballard MD is Attending Physician. rn 08:57 Rachid Kwon, RN is Primary Nurse. jd3 09:07 Triage completed. jd3 09:08 Arm band placed on. jd3 09:18 Patient has correct armband on for positive identification. Placed in gown. Bed in low jd3 position. Call light in reach. Side rails up X 1. Pulse ox on. NIBP on. 09:25 Assist provider with pelvic exam: Performed by Paresh Ballard MD Patient tolerated well. eb no specimens collected at this time. 09:41 Patient did not have IV access during this emergency room visit. jd3 Administered Medications: No medications were administered Outcome: 09:30 Discharge ordered by . rn 09:41 Discharged to home ambulatory, with family. jd3 09:41 Condition: stable 09:41 Discharge instructions given to patient, Instructed on discharge instructions, follow up and referral plans. medication usage, Demonstrated understanding of instructions, follow-up care, medications, Prescriptions given X 2. 09:42 Patient left the ED. jd3 Signatures: Paresh Ballard MD MD rn Rachid Kwon RN RN jLucie Marcum [facility]
--- NOTE | 2020-09-01 09:30 | EDPHYS ---
Physician Documentation [facility] Name: Graham Aguilar Age: 20 yrs Sex: Female : 2000 Arrival Date: 09/01/2020 Time: 08:52 Bed 18 Private MD: ED Physician Paresh Ballard HPI: 09/01 09:25 This 20 yrs old Female presents to ER via Ambulatory with complaints of rn Vaginal Pain, Headache > 24hrs Old. 09:25 The patient presents with perineal itching, vaginal discharge, that is a small amount rn of brown discharge, white discharge. Onset: The symptoms/episode began/occurred 1.5 week(s) ago. Modifying factors: The symptoms are alleviated by nothing, the symptoms are aggravated by nothing. Associated signs and symptoms: Pertinent positives: dysuria, vaginal discharge, Pertinent negatives: fever, hematuria, urinary frequency, vaginal bleeding. Severity of symptoms: At their worst the symptoms were mild, in the emergency department the symptoms are unchanged. The patient has not experienced similar symptoms in the past. The patient has not recently seen a physician. Reports vaginal pain and discharge for 1.5 weeks, no fever, reports single partner no chance of STI. Reports itching. No swelling.. 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 - Social history:: Smoking status: Patient denies any tobacco usage or history of. - Family history:: not pertinent. - Hospitalizations: : No recent hospitalization is reported. ROS: 09:25 Constitutional: Negative for fever, chills, and weight loss, Abdomen/GI: Negative for rn abdominal pain, nausea, vomiting, diarrhea, and constipation, Back: Negative for injury and pain, : + vaginal discharge and pain Exam: 09:25 Constitutional: This is a well developed, well nourished patient who is awake, alert, rn and in no acute distress. Abdomen/GI: soft, non-tender Pelvic Exam: Normal external genitalia. + thin brownish/white vaginal discharge with foul smell, no external swelling or sign of labial/bartholin abscess. No open wounds or sores. Vital Signs: 09:07 BP 114 / 84; Pulse 89; Resp 16 S; Temp 98.1(TE); Pulse Ox 99% on R/A; Weight 92.99 kg jd3 (R); Height 5 ft. 6 in. (167.64 cm) (R); Pain 10/10; 09:07 Body Mass Index 33.09 (92.99 kg, 167.64 cm) jd3 MDM: 08:56 Patient medically screened. rn 09:25 Differential diagnosis: vaginosis, BV. Data reviewed: vital signs, nurses notes, slab grinder test result(s), urinalysis, and as a result, I will discharge patient. Counseling: I had a detailed discussion with the patient and/or guardian regarding: the historical points, exam findings, and any diagnostic results supporting the discharge/admit diagnosis, lab results, the need for outpatient follow up, to return to the emergency department if symptoms worsen or persist or if there are any questions or concerns that arise at home. Special discussion: I discussed with the patient/guardian in detail that at this point there is no indication for admission to the hospital. It is understood, however, that if the symptoms persist or worsen the patient needs to return immediately for re-evaluation. 09/01 09:17 Order name: Urine Dipstick--Ancillary (enter results) 09/01 09:17 Order name: Urine --Ancillary (enter results) eb 09/01 09:04 Order name: Urine Dipstick-Ancillary (obtain specimen); Complete Time: 09:19 rn 09/01 09:04 Order name: Urine Test (obtain specimen); Complete Time: 09:19 rn Administered Medications: No medications were administered Disposition: 09/01/20 09:30 Discharged to Home. Impression: Vaginitis, vulvitis and vulvovaginitis in diseases classified elsewhere. - Condition is Stable. - Discharge Instructions: Vaginitis. - Prescriptions for Flagyl 500 mg Oral Tablet - take 1 tablet by ORAL route every 12 hours for 10 days; 20 tablet. Doxycycline Hyclate 100 mg Oral Tablet - take 1 tablet by ORAL route every 12 hours; 20 tablet. - Medication Reconciliation Form, Thank You Letter, Antibiotic Education, Prescription Opioid Use, Work release form form. - Follow up: Private Physician; When: As needed; Reason: Recheck today's complaints, Re-evaluation by your physician. - Problem is new. - Symptoms are unchanged. Signatures: Dispatcher [employer] EDParesh Acevedo MD MD rn Davies, Jonathon, RN RN jd3 Corrections: (The following items were deleted from the chart) 09:42 09:30 09/01/2020 09:30 Discharged to Home. Impression: Vaginitis, vulvitis and jd3 vulvovaginitis in diseases classified elsewhere. Condition is Stable. Forms are Medication Reconciliation Form, Thank You Letter, Antibiotic Education, Prescription Opioid Use. Follow up: Private Physician; When: As needed; Reason: Recheck today's complaints, Re-evaluation by your physician. Problem is new. Symptoms are unchanged. rn
[2020-09-01 09:47] VITALS: BP 114/84; TEMP 98.1; O2SAT 99
[2020-09-01 10:33] LABS: Urine Blood NEGATIVE (NEG); Urine Glucose NEGATIVE (NEG); Urine Protein 1+ (NEG); Urine pH 8.5 (5.0-7.0)
== END 2020-09-01 09:42 | disposition home or self-care (01) ==
LOC: ER 08:49
DX: N89.8 Other specified noninflammatory disorders of vagina (principal); N77.1 Vaginitis, vulvitis and vulvovaginitis in diseases classified elsewhere; Z88.8 Allergy status to other drugs, medicaments and biological substances
CPT/HCPCS: 81003; 81025; 99283